=== PATIENT | female | born 1955 | race Caucasian/White ===

== ENCOUNTER 2016-12-27 08:39 | Outpatient (RCR) | payer BC ==
--- OUTSIDE RECORDS SUMMARY | 2016-10-18 08:39 | XMS REPORT | Continuity of Care Document ---
Author Author [facility] Organization [facility] Address Unknown Phone Unavailable Care Team Providers Care Sdv Pilot/Navigator/Dds Operator Name Role Phone LEON HOLMAN MD PCP Insurance Providers Payer Name Policy Number Subscriber Name Relationship [facility] [id number] Agata Vásquez 18 Self / Same As Patient Advance Directives Directive Response Recorded Date/Time Advance Directives Yes 06/03/13 7:14am Problems No problem information available. Medications Current Home Medications Medication Dose Units Route Directions Days/Qty Instructions Start Date Enalapril Maleate 10 Mg 10 Mg Oral Daily 06/03/13 Hydrochlorothiazide 25 Mg 25 Mg Oral Daily 06/03/13 Simvastatin 10 Mg 10 Mg Oral Daily 06/03/13 Folic Acid 1 Mg 1 Mg Oral Daily 06/03/13 Dasatinib 70 Mg 70 Mg Oral Daily 06/03/13 Social History Social History Problem Response Recorded Date/Time Alcohol Use Denies Use 06/03/2013 7:14am Recreational Drug Use No 06/03/2013 7:14am Recent Foreign Travel N [place] 04/15/2016 8:45am Hospital Discharge Instructions No hospital discharge instructions. Plan of Care Prescriptions See Medication Section Functional Status No functional status results. Allergies, Adverse Reactions, Alerts Allergen Type Severity Reaction Status Last Updated Sulfa (Sulfonamide Antibiotics) ([id number]) Allergy Unknown Active 12/08 Famotidine Allergy Unknown Active 09/11/09 Immunizations No immunization records. Vital Signs No known vital signs results. Results Laboratory Results Test Name Result Units Flags Reference Collection Date/Time Result Date/ Time Comments White Blood Count 3.6 10^3/uL L 4.3-11.0 04/15/2016 8:57am 04/15/2016 9: 02am Red Blood Count 3.60 10^6/uL L 4.35-5.85 04/15/2016 8:57am 04/15/2016 9: 02am Hemoglobin 11.1 G/DL L 11.5-16.0 04/15/2016 8:57am 04/15/2016 9:02am Hematocrit 33 % L 35-52 04/15/2016 8:57am 04/15/2016 9:02am Mean Corpuscular Volume 92 FL 80-99 04/15/2016 8:57am 04/15/2016 9: 02am Mean Corpuscular Hemoglobin 31 PG 25-34 04/15/2016 8:57am 04/15/2016 9: 02am Mean Corpuscular Hemoglobin Concent 34 G/DL 32-36 04/15/2016 8:57am 12/2015 9:02am Red Cell Distribution Width 14.0 % 10.0-14.5 04/15/2016 8:57am 2015 9:02am Platelet Count 185 10^3/uL 130-400 04/15/2016 8:57am 04/15/2016 9:02am Mean Platelet Volume 9.1 FL 7.4-10.4 04/15/2016 8:57am 04/15/2016 9: 02am Neutrophils (%) (Auto) 58 % 42-75 04/15/2016 8:57am 04/15/2016 9:02am Lymphocytes (%) (Auto) 24 % 12-44 04/15/2016 8:57am 04/15/2016 9:02am Monocytes (%) (Auto) 16 % H 0-12 04/15/2016 8:57am 04/15/2016 9:02am Eosinophils (%) (Auto) 2 % 0-10 04/15/2016 8:57am 04/15/2016 9:02am Basophils (%) (Auto) 0 % 0-10 04/15/2016 8:57am 04/15/2016 9:02am Neutrophils # (Auto) 2.1 X 10^3 1.8-7.8 04/15/2016 8:57am 04/15/2016 9: 02am Lymphocytes # (Auto) 0.9 X 10^3 L 1.0-4.0 04/15/2016 8:57am 04/15/2016 9: 02am Monocytes # (Auto) 0.6 X 10^3 0.0-1.0 04/15/2016 8:57am 04/15/2016 9: 02am Eosinophils # (Auto) 0.1 10^3/uL 0.0-0.3 04/15/2016 8:57am 04/15/2016 9 :02am Basophils # (Auto) 0.0 10^3/uL 0.0-0.1 04/15/2016 8:57am 04/15/2016 9: 02am Sodium Level 139 MMOL/L 135-145 04/15/2016 8:57am 04/15/2016 9:38am Potassium Level 3.8 MMOL/L 3.6-5.0 04/15/2016 8:57am 04/15/2016 9:38am Chloride Level 104 MMOL/L 98-107 04/15/2016 8:57am 04/15/2016 9:38am Carbon Dioxide Level 27 MMOL/L 21-32 04/15/2016 8:57am 04/15/2016 9: 38am Anion Gap 8 MMOL/L 5-14 04/15/2016 8:57am 04/15/2016 9:38am Blood Urea Nitrogen 16 MG/DL 7-18 04/15/2016 8:57am 04/15/2016 9:38am Creatinine 0.89 MG/DL 0.60-1.30 04/15/2016 8:57am 04/15/2016 9:38am BUN/Creatinine Ratio 18 04/15/2016 8:57am 04/15/2016 9:38am Estimat Glomerular Filtration Rate > 60 04/15/2016 8:57am 2015 9:38am GFR INTERPRETIVE DATA UNITS FOR ESTIMATED GFR (eGFR): mL/min/1.73 M2 REFERENCE RANGE FOR ESTIMATED GFR (eGFR) eGFR NORMAL eGFR >60 MODERATELY DECREASED eGFR 30-59 SEVERLY DECREASED eGFR 15-29 KIDNEY FAILURE <15 (OR DIALYSIS) Glucose Level 121 MG/DL H 70-105 04/15/2016 8:57am 04/15/2016 9:38am Calcium Level 9.1 MG/DL 8.5-10.1 04/15/2016 8:57am 04/15/2016 9:38am Total Bilirubin 0.4 MG/DL 0.1-1.0 04/15/2016 8:57am 04/15/2016 9:38am Alkaline Phosphatase 67 U/L 40-136 04/15/2016 8:57am 04/15/2016 9:38am Aspartate Amino Transf (AST/SGOT) 22 U/L 5-34 04/15/2016 8:57am 2015 9:38am Alanine Aminotransferase (ALT/SGPT) 11 U/L 0-55 04/15/2016 8:57am 04/15 9:38am Lactate Dehydrogenase 291 U/L H 125-220 04/15/2016 8:57am 04/15/2016 9: 38am Total Protein 6.7 G/DL 6.4-8.2 04/15/2016 8:57am 04/15/2016 9:38am Albumin 4.3 G/DL 3.2-4.5 04/15/2016 8:57am 04/15/2016 9:38am Ferritin 55 ng/mL 15-150 04/15/2016 8:37am 04/16/2016 6:24am Test performed at [facility], CLIA# [id number] Procedures No known history of procedures. Encounters Encounter Location Arrival/Admit Date Discharge/Depart Date Attending Provider Discharged Recurring [facility] 04/29/16 8:49am 11:59pm CARLENE THRASHER
[2016-10-18 09:19] LABS: BASOPHILS % (AUTO) 0 % (0-10); EOSINOPHILS # (AUTO) 0.1 10^3/uL (0.0-0.3); EOSINOPHILS % (AUTO) 3 % (0-10); LYMPHOCYTES # (AUTO) 0.9 X 10^3 (1.0-4.0); LYMPHOCYTES % (AUTO) 22 % (12-44); MEAN CORPUSCULAR HEMOGLOBIN 31 PG (25-34); MEAN CORPUSCULAR HGB CONC 33 G/DL (32-36); MEAN CORPUSCULAR VOLUME 92 FL (80-99); MEAN PLATELET VOLUME 8.7 FL (7.4-10.4); MONOCYTES # (AUTO) 0.6 X 10^3 (0.0-1.0); MONOCYTES % (AUTO) 16 % (0-12); NEUTROPHILS # (AUTO) 2.4 X 10^3 (1.8-7.8); NEUTROPHILS % (AUTO) 59 % (42-75); PLATELET COUNT 172 10^3/uL (130-400); RED BLOOD COUNT 3.43 10^6/uL (4.35-5.85); RED CELL DISTRIBUTION WIDTH 14.4 % (10.0-14.5)
[2016-10-18 09:56] LABS: ALANINE AMINOTRANSFERASE 16 U/L (0-55); ALBUMIN 4.1 G/DL (3.2-4.5); ANION GAP 9 MMOL/L (5-14); ASPARTATE AMINO TRANSFERASE 24 U/L (5-34); BILIRUBIN,TOTAL 0.3 MG/DL (0.1-1.0); BLOOD UREA NITROGEN 14 MG/DL (7-18); BUN/CREATININE RATIO 15; CALCIUM 8.9 MG/DL (8.5-10.1); CARBON DIOXIDE 23 MMOL/L (21-32); CHLORIDE 108 MMOL/L (98-107); CREATININE SERUM 0.91 MG/DL (0.60-1.30); GFR ESTIMATED > 60; GLUCOSE 121 MG/DL (70-105); LACTATE DEHYDROGENASE 298 U/L (125-220); POTASSIUM 3.8 MMOL/L (3.6-5.0); SODIUM 140 MMOL/L (135-145); TOTAL PROTEIN 6.6 G/DL (6.4-8.2)
[2016-10-19 07:58] LABS: FERRITIN 51 ng/mL (15-150)
[2016-10-25 08:30] LABS: BCR ABL GENE QT SEE REPORT
[~2016-12-27 08:39] MED LIST: DASA70TA PO; ENLP10T PO; FOLI1TAB24 PO; HCT25T PO; SIMV10TA3 PO
[2016-12-27 08:57] LABS: BASOPHILS % (AUTO) 0 % (0-10); EOSINOPHILS # (AUTO) 0.1 10^3/uL (0.0-0.3); EOSINOPHILS % (AUTO) 3 % (0-10); LYMPHOCYTES # (AUTO) 0.8 X 10^3 (1.0-4.0); LYMPHOCYTES % (AUTO) 20 % (12-44); MEAN CORPUSCULAR HEMOGLOBIN 31 PG (25-34); MEAN CORPUSCULAR HGB CONC 33 G/DL (32-36); MEAN CORPUSCULAR VOLUME 92 FL (80-99); MONOCYTES # (AUTO) 0.7 X 10^3 (0.0-1.0); MONOCYTES % (AUTO) 17 % (0-12); NEUTROPHILS # (AUTO) 2.4 X 10^3 (1.8-7.8); NEUTROPHILS % (AUTO) 60 % (42-75); PLATELET COUNT 183 10^3/uL (130-400); RED BLOOD COUNT 3.53 10^6/uL (4.35-5.85); RED CELL DISTRIBUTION WIDTH 14.2 % (10.0-14.5); WHITE BLOOD COUNT 4.1 10^3/uL (4.3-11.0)
[2016-12-27 09:39] LABS: ALBUMIN 4.1 G/DL (3.2-4.5); BILIRUBIN,TOTAL 0.3 MG/DL (0.1-1.0); CALCIUM 9.1 MG/DL (8.5-10.1); CREATININE SERUM 1.01 MG/DL (0.60-1.30); POTASSIUM 3.6 MMOL/L (3.6-5.0); TOTAL PROTEIN 6.7 G/DL (6.4-8.2)
== END 2017-01-16 | disposition home or self-care (01) ==
LOC: ONC 08:39
PROVIDERS: ATTEND Internal Medicine Hematology & Oncology
DX: C92.10 Chronic myeloid leukemia, BCR/ABL-positive, not having achieved remission (principal); D50.9 Iron deficiency anemia, unspecified; N18.3 Chronic kidney disease, stage 3 (moderate); Z79.899 Other long term (current) drug therapy
CPT/HCPCS: 36415; 80053; 81206; 82728; 83615; 85025; 99213

== ENCOUNTER → 2016-12-31 | Outpatient (CLI) | payer BC ==
[~2016-12-31] MED LIST changes: +BARIUM SUSPENSION 2.1% (VANILLA SILQ) 450 ML PO ONE; +CATHETER FLUSH 10 ML SYR IV PRN; +IOHEXOL 350 MG/ML 100 ML (OMNIPAQUE 350) VIAL IV ONE; +NS 100 ML (IVPB) BAG IV ONE
--- OUTSIDE RECORDS SUMMARY | 2016-12-31 09:49 | XMS REPORT | Continuity of Care Document ---
Author Author [facility] Organization [facility] Address Unknown Phone Unavailable Care Team Providers Care Tool Shaper Setup Operator Name Role Phone LEON HOLMAN MD PCP Insurance Providers Payer Name Policy Number Subscriber Name Relationship [facility] [id number] Agata Vásquez 18 Self / Same As [...] Reaction Status Last Updated Sulfa (Sulfonamide Antibiotics) ([id number]) Allergy Unknown Active 12/08 Famotidine Allergy Unknown [...] 04/15/2016 8:37am 04/16/2016 6:24am Test performed at [facility], CLIA# [id number] Procedures No known history of procedures. Encounters Encounter Location Arrival/Admit Date Discharge/Depart Date Attending Provider Discharged Recurring [facility] 04/29/16 8:49am 11:59pm CARLENE THRASHER
--- NOTE | 2016-12-31 11:44 | Diagnostic Imaging Report ---
PROCEDURE: CT abdomen and pelvis with contrast. TECHNIQUE: Multiple contiguous axial images were obtained through the abdomen and pelvis after administration of intravenous contrast. INDICATION: History of leukemia. Bilateral leg swelling. 100 ML of Omnipaque 350 is administered intravenously. FINDINGS: The lung bases appear clear. The gallbladder is distended without stones or wall thickening. The liver, the pancreas, the spleen, and the adrenals appear unremarkable. The kidneys have symmetric enhancement and contrast excretion. The abdominal aorta is normal in caliber. No para-aortic significantly enlarged lymph node is seen. This study was ordered with a routine protocol, and a dedicated venous phase was not performed. The delayed phase imaging demonstrates remaining mild enhancement in the iliac veins and the IVC with no definite venous occlusion. Left abdominal colostomy is seen. No significant free fluid or fluid collection is noted. The osseous structures demonstrate degenerative changes in the lower lumbar spine. IMPRESSION: No lymphadenopathy or soft tissue mass is seen in the abdomen or pelvis. Distended gallbladder with no stones or CT evidence of cholecystitis. Dictated by: Dictated on workstation # [id number]
== END ==
LOC: RAD 09:46
PROVIDERS: ATTEND Nurse Practitioner Adult Health
DX: N18.3 Chronic kidney disease, stage 3 (moderate) (principal)
CPT/HCPCS: 74177

== ENCOUNTER → 2017-01-21 | Outpatient (CLI) | payer BC ==
[~2017-01-21] MED LIST changes: -BARIUM SUSPENSION 2.1% (VANILLA SILQ) 450 ML PO ONE; -CATHETER FLUSH 10 ML SYR IV PRN; -IOHEXOL 350 MG/ML 100 ML (OMNIPAQUE 350) VIAL IV ONE; -NS 100 ML (IVPB) BAG IV ONE
--- OUTSIDE RECORDS SUMMARY | 2017-01-21 10:25 | XMS REPORT | Continuity of Care Document ---
Author Author [facility] Organization [facility] Address Unknown Phone Unavailable Care Team Providers Care Bender Machine Operator Name Role Phone LEON HOLMAN MD PCP Insurance Providers Payer Name Policy Number Subscriber Name Relationship [facility] [id number] Agata Vásquez 18 Self / Same As [...] Reaction Status Last Updated Sulfa (Sulfonamide Antibiotics) ([id number]) Allergy Unknown Active 12/08 Famotidine Allergy Unknown [...] 04/15/2016 8:37am 04/16/2016 6:24am Test performed at [facility], CLIA# [id number] Procedures No known history of procedures. Encounters Encounter Location Arrival/Admit Date Discharge/Depart Date Attending Provider Discharged Recurring [facility] 04/29/16 8:49am 11:59pm CARLENE THRASHER
--- NOTE | 2017-01-21 19:18 | Diagnostic Imaging Report ---
INDICATION: Digital mammogram bilateral screening. This study was compared to the prior exams of 12/18/15, 11/19/14 and 10/22/13. At this time, there are no current complaints. The current study was also evaluated with a Computer Aided Detection (CAD) system. FINDINGS: There are scattered fibroglandular densities in both breasts which could obscure a lesion. Overall, there does not appear to have been any significant change when compared to the prior exam. No primary or secondary sign of malignancy is noted. IMPRESSION: There is no radiographic evidence for malignancy. ACR BI-RADS Category 1: Negative. Result letter will be mailed to the patient. Note: At least 10% of breast cancer is not imaged by mammography. Dictated by: Dictated on workstation # [id number]
== END ==
LOC: RAD 10:22
PROVIDERS: ATTEND Family Medicine
DX: Z12.31 Encounter for screening mammogram for malignant neoplasm of breast (principal)
CPT/HCPCS: 77067

== ENCOUNTER 2017-05-02 13:15 | Outpatient (RCR) | payer BC ==
[2017-04-18 09:36] LABS: BASOPHILS % (AUTO) 0 % (0-10); EOSINOPHILS # (AUTO) 0.1 10^3/uL (0.0-0.3); EOSINOPHILS % (AUTO) 2 % (0-10); LYMPHOCYTES # (AUTO) 0.7 X 10^3 (1.0-4.0); LYMPHOCYTES % (AUTO) 18 % (12-44); MEAN CORPUSCULAR HEMOGLOBIN 31 PG (25-34); MEAN CORPUSCULAR HGB CONC 34 G/DL (32-36); MEAN CORPUSCULAR VOLUME 92 FL (80-99); MEAN PLATELET VOLUME 8.8 FL (7.4-10.4); MONOCYTES # (AUTO) 0.6 X 10^3 (0.0-1.0); MONOCYTES % (AUTO) 14 % (0-12); NEUTROPHILS # (AUTO) 2.6 X 10^3 (1.8-7.8); NEUTROPHILS % (AUTO) 65 % (42-75); PLATELET COUNT 180 10^3/uL (130-400); RED CELL DISTRIBUTION WIDTH 14.1 % (10.0-14.5); WHITE BLOOD COUNT 4.1 10^3/uL (4.3-11.0)
[2017-04-18 10:13] LABS: ALANINE AMINOTRANSFERASE 14 U/L (0-55); ALBUMIN 4.1 G/DL (3.2-4.5); ANION GAP 10 MMOL/L (5-14); ASPARTATE AMINO TRANSFERASE 17 U/L (5-34); BILIRUBIN,TOTAL 0.3 MG/DL (0.1-1.0); BLOOD UREA NITROGEN 14 MG/DL (7-18); BUN/CREATININE RATIO 16; CALCIUM 9.1 MG/DL (8.5-10.1); CARBON DIOXIDE 26 MMOL/L (21-32); CHLORIDE 103 MMOL/L (98-107); CREATININE SERUM 0.87 MG/DL (0.60-1.30); GFR ESTIMATED > 60; GLUCOSE 134 MG/DL (70-105); LACTATE DEHYDROGENASE 262 U/L (125-220); POTASSIUM 3.7 MMOL/L (3.6-5.0); SODIUM 139 MMOL/L (135-145); TOTAL PROTEIN 6.8 G/DL (6.4-8.2)
[2017-04-25 07:41] LABS: BCR ABL GENE QT SEE FOOTNOTE
== END 2017-07-17 | disposition home or self-care (01) ==
LOC: ONC 13:15
PROVIDERS: ATTEND Internal Medicine Hematology & Oncology
DX: C92.10 Chronic myeloid leukemia, BCR/ABL-positive, not having achieved remission (principal); D50.9 Iron deficiency anemia, unspecified; N18.3 Chronic kidney disease, stage 3 (moderate); Z79.899 Other long term (current) drug therapy
CPT/HCPCS: 36415; 80053; 81206; 82728; 83615; 85025; 99213

== ENCOUNTER 2017-10-31 12:47 | Outpatient (RCR) | payer BC ==
[2017-10-17 09:11] LABS: BASOPHILS % (AUTO) 0 % (0-10); EOSINOPHILS # (AUTO) 0.1 10^3/uL (0.0-0.3); EOSINOPHILS % (AUTO) 3 % (0-10); HEMATOCRIT 32 % (35-52); HEMOGLOBIN 10.8 G/DL (11.5-16.0); LYMPHOCYTES # (AUTO) 0.9 X 10^3 (1.0-4.0); LYMPHOCYTES % (AUTO) 21 % (12-44); MEAN CORPUSCULAR HEMOGLOBIN 31 PG (25-34); MEAN CORPUSCULAR HGB CONC 34 G/DL (32-36); MEAN CORPUSCULAR VOLUME 93 FL (80-99); MONOCYTES # (AUTO) 0.7 X 10^3 (0.0-1.0); MONOCYTES % (AUTO) 16 % (0-12); NEUTROPHILS # (AUTO) 2.5 X 10^3 (1.8-7.8); NEUTROPHILS % (AUTO) 60 % (42-75); PLATELET COUNT 186 10^3/uL (130-400); RED BLOOD COUNT 3.44 10^6/uL (4.35-5.85); RED CELL DISTRIBUTION WIDTH 14.1 % (10.0-14.5); WHITE BLOOD COUNT 4.2 10^3/uL (4.3-11.0)
[2017-10-17 09:34] LABS: ALANINE AMINOTRANSFERASE 17 U/L (0-55); ALBUMIN 4.2 GM/DL (3.2-4.5); ALKALINE PHOSPHATASE 70 U/L (40-136); BILIRUBIN,TOTAL 0.3 MG/DL (0.1-1.0); BUN/CREATININE RATIO 17; CALCIUM 8.9 MG/DL (8.5-10.1); CARBON DIOXIDE 26 MMOL/L (21-32); CHLORIDE 102 MMOL/L (98-107); CREATININE SERUM 0.92 MG/DL (0.60-1.30); GFR ESTIMATED > 60; GLUCOSE 143 MG/DL (70-105); SODIUM 138 MMOL/L (135-145); TOTAL PROTEIN 7.4 GM/DL (6.4-8.2)
== END 2018-01-15 | disposition home or self-care (01) ==
LOC: ONC 12:47
PROVIDERS: ATTEND Internal Medicine Hematology & Oncology
DX: C92.10 Chronic myeloid leukemia, BCR/ABL-positive, not having achieved remission (principal); D50.9 Iron deficiency anemia, unspecified; N18.3 Chronic kidney disease, stage 3 (moderate); Z79.899 Other long term (current) drug therapy
CPT/HCPCS: 36415; 80053; 81206; 82728; 83615; 85025; 99213

== ENCOUNTER → 2018-01-25 | Outpatient (CLI) | payer BC ==
--- NOTE | 2018-01-25 19:25 | Diagnostic Imaging Report ---
INDICATION: Digital mammogram bilateral screening. This study was compared to the prior exams of 01/21/17, 12/18/15 and 11/19/14. At this time, there are no current complaints. The current study was also evaluated with a Computer Aided Detection (CAD) system. FINDINGS: There are scattered fibroglandular densities in both breasts which could obscure a lesion. Overall, there does not appear to have been any significant change when compared to the prior exam. No primary or secondary sign of malignancy is noted. IMPRESSION: There is no radiographic evidence for malignancy. ACR BI-RADS Category 1: Negative. Result letter will be mailed to the patient. Note: At least 10% of breast cancer is not imaged by mammography. Dictated by: Dictated on workstation # [id number]
== END ==
LOC: RAD 08:45
PROVIDERS: ATTEND Family Medicine
DX: Z12.31 Encounter for screening mammogram for malignant neoplasm of breast (principal)
CPT/HCPCS: 77067

== ENCOUNTER 2018-03-08 20:48 | Emergency (ER) | payer BC ==
[~2018-03-08] VITALS: Ht 157.5 cm; Wt 73.9 kg
--- OUTSIDE RECORDS SUMMARY | 2018-03-08 20:54 | XMS REPORT ---
Author EVELYN Sarabia Organization [employer] Address Unknown Phone Unavailable Care Team Providers Care Line Therapist Name Role Phone EVELYN MORALES CP Unavailable Allergies No Known Allergies Problems Problem Type Condition Code Onset Dates Condition Status Assessment Encounter for immunization Z23 Active Problem Need for prophylactic vaccination and inoculation, Influenza V04.81 Active Medications No Known Medications Procedures Procedure Coding System Code Date SINGLE IMMUNIZATION ADMIN CPT-4 44857 Sep 02, 2015 FLUARIX QUAD (3 & UP)-GSK-2014 CPT-4 87847 Sep 02, 2015 Results No Known Results Immunizations Vaccine Administration Date FLUARIX QUAD (3 & UP)-GSK-2014Sep 02, 2015 Summary Purpose [employer] Submission
--- OUTSIDE RECORDS SUMMARY | 2018-03-08 20:55 | XMS REPORT | Continuity of Care Document ---
Author Author [facility] Address Unknown Phone Unavailable Allergies Active Description Code Type Severity Reaction Onset Reported/Identified Relationship to Patient Clinical Status Yes famotidine [id number] Drug Allergy Unknown N/A 09/11/2009 Yes Sulfa (Sulfonamide Antibiotics) [id number] Drug Allergy Unknown N/A 2008 Medications There is no data. Problems Date Dx Coded Attending Type Code Diagnosis Diagnosed By 10/13/1634 MANDA BECKMAN, LEON Medrano Ot R60.0 LOCALIZED EDEMA 11/10/2010 Ot 205.10 CHRONIC MYELOID LEUKEMIA, W/O MENTION AC 11/10/2010 Ot 585.3 CHRONIC KIDNEY DISEASE, STAGE III (MODER 11/10/2010 Ot 724.2 LUMBAGO 11/10/2010 Ot 780.60 FEVER, UNSPECIFIED 11/10/2010 Ot 789.00 ABDOMINAL PAIN, UNSPECIFIED SITE 11/10/2010 Ot V44.3 COLOSTOMY STATUS 11/10/2010 Ot V58.69 OTH MED,LT, CURRENT USE 04/19/2011 Ot 211.3 BENIGN NEOPLASM LG BOWEL 04/19/2011 Ot 401.9 HYPERTENSION NOS 04/19/2011 Ot V16.0 FAMILY HX-GI MALIGNANCY 04/19/2011 Ot V44.3 COLOSTOMY STATUS 04/19/2011 Ot V58.69 OTH MED,LT, CURRENT USE 04/19/2011 Ot V67.09 SURGERY FOLLOW-UP, OTHER SURGERY 05/24/2011 Ot 205.10 CHRONIC MYELOID LEUKEMIA, W/O MENTION AC 05/24/2011 Ot 585.3 CHRONIC KIDNEY DISEASE, STAGE III (MODER 05/24/2011 Ot V58.69 OTH MED,LT, CURRENT USE 08/29/2011 Ot 205.10 CHRONIC MYELOID LEUKEMIA, W/O MENTION AC 12/06/2011 Ot 205.10 CHRONIC MYELOID LEUKEMIA, W/O MENTION AC 12/06/2011 Ot 585.3 CHRONIC KIDNEY DISEASE, STAGE III (MODER 12/06/2011 Ot V58.69 OTH MED,LT, CURRENT USE 05/29/2012 Ot 205.10 CHRONIC MYELOID LEUKEMIA, W/O MENTION AC 05/29/2012 Ot 285.9 ANEMIA NOS 05/29/2012 Ot 585.3 CHRONIC KIDNEY DISEASE, STAGE III (MODER 05/29/2012 Ot V58.69 OTH MED,LT, CURRENT USE 08/25/2012 RAJOTTE TELEVISION SCHEDULE COORDINATOR, EVELYN A V04.81 FLU DX (3 YRS AND ABOVE, IM) 08/25/2012 RAJOTTE TELEVISION SCHEDULE COORDINATOR, EVELYN A V04.81 FLU DX (3 YRS AND ABOVE, IM) 09/10/2012 Ot 205.10 CHRONIC MYELOID LEUKEMIA, W/O MENTION AC 09/10/2012 Ot 285.9 ANEMIA NOS 09/10/2012 Ot 585.3 CHRONIC KIDNEY DISEASE, STAGE III (MODER 09/10/2012 Ot V58.69 OTH MED,LT, CURRENT USE 12/17/2012 Ot 205.10 CHRONIC MYELOID LEUKEMIA, W/O MENTION AC 12/17/2012 Ot 285.9 ANEMIA NOS 12/17/2012 Ot 585.3 CHRONIC KIDNEY DISEASE, STAGE III (MODER 12/17/2012 Ot V58.69 OTH MED,LT, CURRENT USE 03/25/2013 CARLENE THRASHER Ot 205.10 CHRONIC MYELOID LEUKEMIA, W/O MENTION AC 03/25/2013 CARLENE THRASHER N Ot 285.9 ANEMIA NOS 03/25/2013 CARLENE THRASHER N Ot 585.3 CHRONIC KIDNEY DISEASE, STAGE III (MODER 03/25/2013 CARLENE THRASHER Ot V58.69 OTH MED,LT,CURRENT USE 06/03/2013 MARNIE BECKMAN, JHON Castillo Ot 205.10 CHRONIC MYELOID LEUKEMIA, W/O MENTION AC 06/03/2013 MARNIE BECKMAN, JHON Castillo Ot 569.69 OTH COLOST ENTEROSTOMY COMP 06/03/2013 MARNIE BECKMAN, JHON Castillo Ot 787.91 DIARRHEA 06/03/2013 JHON DYE MD Ot 789.00 ABDOMINAL PAIN, UNSPECIFIED SITE 06/03/2013 JHON DYE MD Ot V44.3 COLOSTOMY STATUS 06/24/2013 CARLENE THRASHER N Ot 205.10 CHRONIC MYELOID LEUKEMIA, W/O MENTION AC 06/24/2013 PRICE, BOBAN N Ot 285.9 ANEMIA NOS 06/24/2013 PRICE, BOBAN N Ot 585.3 CHRONIC KIDNEY DISEASE, STAGE III (MODER 06/24/2013 PRICE, BOBAN N Ot V58.69 OTH MED,LT,CURRENT USE 10/03/2013 PRICE, BOBAN N Ot 205.10 CHRONIC MYELOID LEUKEMIA, W/O MENTION AC 10/03/2013 PRICE, BOBAN N Ot 285.9 ANEMIA NOS 10/03/2013 PRICE, BOBAN N Ot 585.3 CHRONIC KIDNEY DISEASE, STAGE III (MODER 10/03/2013 PRICE, BOBAN N Ot V58.69 OTH MED,LT,CURRENT USE 01/13/2014 PRICE, BOBAN N Ot 205.10 CHRONIC MYELOID LEUKEMIA, W/O MENTION AC 01/13/2014 PRICE, BOBAN N Ot 280.9 IRON DEFIC ANEMIA NOS 01/13/2014 PRICE, BOBAN N Ot 585.3 CHRONIC KIDNEY DISEASE, STAGE III (MODER 01/13/2014 PRICE, BOBAN N Ot V44.3 COLOSTOMY STATUS 01/13/2014 PRICE, BOBAN N Ot V58.69 OTH MED,LT,CURRENT USE 07/03/2014 PRICE, BOBAN N Ot 205.10 CHRONIC MYELOID LEUKEMIA, W/O MENTION AC 07/03/2014 PRICE, BOBAN N Ot 280.9 IRON DEFIC ANEMIA NOS 07/03/2014 PRICE, BOBAN N Ot 585.3 CHRONIC KIDNEY DISEASE, STAGE III (MODER 07/03/2014 PRICE, BOBAN N Ot V44.3 COLOSTOMY STATUS 07/03/2014 PRICE, BOBAN N Ot V58.69 OTH MED,LT,CURRENT USE 10/17/2014 PRICE, BOBAN N Ot 205.10 10/17/2014 PRICE, BOBAN N Ot 280.9 10/17/2014 PRICE, BOBAN N Ot 585.3 10/17/2014 PRICE, BOBAN N Ot V44.3 10/17/2014 PRICE, BOBAN N Ot V58.69 10/18/2014 PRICE, BOBAN N Ot 205.10 10/18/2014 PRICE, BOBAN N Ot 280.9 10/18/2014 PRICE, BOBAN N Ot 585.3 10/18/2014 PRICE, BOBAN N Ot V44.3 10/18/2014 PRICE, BOBAN N Ot V58.69 11/18/2014 CARRENORUSSELL Tovar FRINGE KNOTTER Ot 205.10 11/18/2014 CARRENO RUSSELL S FRINGE KNOTTER Ot 280.9 11/18/2014 RUSSELL CARRENO S FRINGE KNOTTER Ot 585.3 11/18/2014 CARRENO RUSSELL S FRINGE KNOTTER Ot V44.3 11/18/2014 CARRENORUSSELL Tovar S FRINGE KNOTTER Ot V58.69 12/09/2014 PRICE, BOBAN N Ot 205.10 12/09/2014 PRICE, BOBAN N Ot 280.9 12/09/2014 PRICE, BOBAN N Ot 585.3 12/09/2014 PRICE, BOBAN N Ot V44.3 12/09/2014 PRICE, BOBAN N Ot V58.69 12/12/2014 MANDA BECKMAN, LEON Medrano Ot V76.12 01/15/2015 PRICE, BOBAN N Ot 205.10 CHRONIC MYELOID LEUKEMIA, W/O MENTION AC 01/15/2015 PRICE, BOBAN N Ot 280.9 IRON DEFIC ANEMIA NOS 01/15/2015 PRICE, BOBAN N Ot 585.3 CHRONIC KIDNEY DISEASE, STAGE III (MODER 01/15/2015 PRICE, BOBAN N Ot V44.3 COLOSTOMY STATUS 01/15/2015 PRICE, BOBAN N Ot V58.69 OT MED,LT,CURRENT USE 02/04/2015 PRICE, BOBAN N Ot 205.10 02/04/2015 PRICE, BOBAN N Ot 280.9 02/04/2015 PRICE, BOBAN N Ot 585.3 02/04/2015 PRICE, BOBAN N Ot V44.3 02/04/2015 PRICE, BOBAN N Ot V58.69 02/28/2015 PRICE, BOBAN N Ot 205.10 02/28/2015 PRICE, BOBAN N Ot 280.9 02/28/2015 PRICE, BOBAN N Ot 585.3 02/28/2015 PRICE, BOBAN N Ot V44.3 02/28/2015 PRICE, BOBAN N Ot V58.69 04/16/2015 PRICE, BOBAN N Ot 205.10 CHRONIC MYELOID LEUKEMIA, W/O MENTION AC 04/16/2015 PRICE, BOBAN N Ot 280.9 IRON DEFIC ANEMIA NOS 04/16/2015 PRICE, BOBAN N Ot 585.3 CHRONIC KIDNEY DISEASE, STAGE III (MODER 04/16/2015 PRICE, BOBAN N Ot V44.3 COLOSTOMY STATUS 04/16/2015 PRICE, BOBAN N Ot V58.69 OTH MED,LT,CURRENT USE 04/17/2015 PRICE, BOBAN N Ot 205.10 04/17/2015 PRICE, BOBAN N Ot 280.9 04/17/2015 PRICE, BOBAN N Ot 585.3 04/17/2015 PRICE, BOBAN N Ot V44.3 04/17/2015 PRICE, BOBAN N Ot V58.69 04/17/2015 PRICE, BOBAN N Ot 205.10 04/17/2015 PRICE, BOBAN N Ot 280.9 04/17/2015 PRICE, BOBAN N Ot 585.3 04/17/2015 PRICE, BOBAN N Ot V44.3 04/17/2015 PRICE, BOBAN N Ot V58.69 04/18/2015 PRICE, BOBAN N Ot 205.10 04/18/2015 PRICE, BOBAN N Ot 280.9 04/18/2015 PRICE, BOBAN N Ot 585.3 04/18/2015 PRICE, BOBAN N Ot V44.3 04/18/2015 PRICE, BOBAN N Ot V58.69 05/19/2015 PRICE, BOBAN N Ot 205.10 05/19/2015 PRICE, BOBAN N Ot 280.9 05/19/2015 PRICE, BOBAN N Ot 585.3 05/19/2015 PRICE, BOBAN N Ot V44.3 05/19/2015 PRICE, BOBAN N Ot V58.69 05/30/2015 PRICE, BOBAN N Ot 205.10 05/30/2015 PRICE, BOBAN N Ot 280.9 05/30/2015 PRICE, BOBAN N Ot 585.3 05/30/2015 PRICE, BOBAN N Ot V44.3 05/30/2015 PRICE, BOBAN N Ot V58.69 07/16/2015 PRICE, BOBAN N Ot 205.10 CHRONIC MYELOID LEUKEMIA, W/O MENTION AC 07/16/2015 CARLENE THRASHER Ot 280.9 IRON DEFIC ANEMIA NOS 07/16/2015 CARLENE THRASHER Ot 585.3 CHRONIC KIDNEY DISEASE, STAGE III (MODER 07/16/2015 CARLENE THRASHER Ot V44.3 COLOSTOMY STATUS 07/16/2015 CARLENE THRASHER Ot V58.69 OTH MED,LT,CURRENT USE 11/18/2015 RUSSELL CARRENOP Ot C92.10 11/18/2015 RUSSELL CARRENOP Ot D50.0 11/18/2015 RUSSELL CARRENO FRINGE KNOTTER Ot Z79.899 12/12/2015 CARLENE THRASHER N Ot C92.10 12/12/2015 ACRLENE THRASHER Ot D50.9 12/12/2015 CARLENE THRASHER Ot N18.3 12/12/2015 CARLENE THRASHER Ot Z79.899 01/01/2016 Ot Z12.31 01/14/2016 CARLENE THRASHER Ot C92.10 CHRONIC MYELOID LEUK, BCR/ABL-POSITIVE, 01/14/2016 CARLENE THRASHER Ot D50.9 IRON DEFICIENCY ANEMIA, UNSPECIFIED 01/14/2016 CARLENE THRASHER Ot N18.3 CHRONIC KIDNEY DISEASE, STAGE 3 (MODERAT 01/14/2016 CARLENE THRASHER Ot Z79.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 04/15/2016 Ot 205.10 CHRONIC MYELOID LEUKEMIA, W/O MENTION AC 04/15/2016 Ot 272.4 HYPERLIPIDEMIA NEC/NOS 04/15/2016 Ot 205.10 CHRONIC MYELOID LEUKEMIA, W/O MENTION AC 04/15/2016 Ot 585.3 CHRONIC KIDNEY DISEASE, STAGE III (MODER 04/15/2016 Ot V03.82 PROPHYLACTIC VACC AGAINST STREPTOCOCCUS 04/15/2016 Ot V06.1 DIPHTHERIA- TETANUS-PERTUSSIS, COMBINED [ 04/15/2016 Ot V44.3 COLOSTOMY STATUS 04/15/2016 Ot V58.69 OTH MED,LT, CURRENT USE 04/15/2016 Ot V76.12 OTH SCREEN MAMMO-MALIGN NEOPLASM OF JAYLEEN 04/15/2016 Ot V76.12 OTH SCREEN MAMMO-MALIGN NEOPLASM OF JAYLEEN 04/15/2016 RUSSELL CARRENO FRINGE KNOTTER Ot 205.10 CHRONIC MYELOID LEUKEMIA, W/O MENTION AC 04/15/2016 DAHIANA CARRENOGEE La FRINGE KNOTTER Ot 280.9 IRON DEFIC ANEMIA NOS 04/15/2016 RUSSELL CARRENO FRINGE KNOTTER Ot 284.19 OTHER PANCYTOPENIA 04/15/2016 RUSSELL CARRENO FRINGE KNOTTER Ot 782.3 EDEMA 04/15/2016 RUSSELL CARRENO FRINGE KNOTTER Ot V58.69 OTH MED,LT,CURRENT USE 04/15/2016 RUSSELL CARRENO FRINGE KNOTTER Ot 729.5 PAIN IN LIMB 04/15/2016 RUSSELL CARRENO FRINGE KNOTTER Ot 205.10 CHRONIC MYELOID LEUKEMIA, W/O MENTION AC 04/15/2016 RUSSELL CARRENO FRINGE KNOTTER Ot 280.9 IRON DEFIC ANEMIA NOS 04/15/2016 RUSSELL CARRENO FRINGE KNOTTER Ot 585.3 CHRONIC KIDNEY DISEASE, STAGE III (MODER 04/15/2016 RUSSELL CARRENO FRINGE KNOTTER Ot V44.3 COLOSTOMY STATUS 04/15/2016 RUSSELL CARRENO FRINGE KNOTTER Ot V58.69 OTH MED,LT,CURRENT USE 04/15/2016 MANDA BECKMAN, LEON Medrano Ot 793.82 INCONCLUSIVE MAMMOGRAM 04/15/2016 RUSSELL CARRENO FRINGE KNOTTER Ot 205.10 CHRONIC MYELOID LEUKEMIA, W/O MENTION AC 04/15/2016 RUSSELL CARRENO FRINGE KNOTTER Ot 280.9 IRON DEFIC ANEMIA NOS 04/15/2016 URSSELL CARRENO FRINGE KNOTTER Ot 585.3 CHRONIC KIDNEY DISEASE, STAGE III (MODER 04/15/2016 RUSSELL CARRENO FRINGE KNOTTER Ot V44.3 COLOSTOMY STATUS 04/15/2016 RUSSELL CARRENO FRINGE KNOTTER Ot V58.69 OTH MED,LT,CURRENT USE 04/15/2016 MANDA BECKMAN, LEON Medrano Ot V76.12 OTH SCREEN MAMMO-MALIGN NEOPLASM OF JAYLEEN 04/15/2016 RUSSELL CARRENO FRINGE KNOTTER Ot C92.10 CHRONIC MYELOID LEUK, BCR/ABL-POSITIVE, 04/15/2016 RUSSELL CARRENO FRINGE KNOTTER Ot D50.0 IRON DEFICIENCY ANEMIA SECONDARY TO BLOO 04/15/2016 RUSSELL CARRENO FRINGE KNOTTER Ot Z79.899 OTHER PRISON (CURRENT) DRUG THERAPY 04/15/2016 Ot Z12.31 ENCNTR SCREEN MAMMOGRAM FOR MALIGNANT NE 04/15/2016 CARLENE THRASHER Ot C92.10 CHRONIC MYELOID LEUK, BCR/ABL-POSITIVE, 04/15/2016 CARLENE THRASHER N Ot D50.9 IRON DEFICIENCY ANEMIA, UNSPECIFIED 04/15/2016 CARLENE THRASHER N Ot N18.3 CHRONIC KIDNEY DISEASE, STAGE 3 (MODERAT 04/15/2016 CARLENE THRASHER N Ot Z79.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 04/16/2016 CARLENE THRASHER Ot C92.10 CHRONIC MYELOID LEUK, BCR/ABL-POSITIVE, 04/16/2016 CARLENE THRASHER N Ot D50.9 IRON DEFICIENCY ANEMIA, UNSPECIFIED 04/16/2016 CARLENE THRASHER Ot N18.3 CHRONIC KIDNEY DISEASE, STAGE 3 (MODERAT 04/16/2016 CARLENE THRASHER N Ot Z79.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 05/18/2016 MANDA BECKMAN, LEON Medrano Ot R60.0 LOCALIZED EDEMA 05/19/2016 Ot V76.12 OTH SCREEN MAMMO-MALIGN NEOPLASM OF JAYLEEN 05/19/2016 Ot V76.12 OTH SCREEN MAMMO-MALIGN NEOPLASM OF JAYLEEN 05/19/2016 RUSSELL CARRENOP Ot 205.10 CHRONIC MYELOID LEUKEMIA, W/O MENTION AC 05/19/2016 RUSSELL CARRENOP Ot 280.9 IRON DEFIC ANEMIA NOS 05/19/2016 RUSSELL CARRENOP Ot 284.19 OTHER PANCYTOPENIA 05/19/2016 RUSSELL CARRENOP Ot 782.3 EDEMA 05/19/2016 RUSSELL CARRENO Ot V58.69 OTH MED,LT,CURRENT USE 05/19/2016 RUSSELL CARRENOP Ot 729.5 PAIN IN LIMB 05/19/2016 RUSSELL CARRENOP Ot 205.10 CHRONIC MYELOID LEUKEMIA, W/O MENTION AC 05/19/2016 RUSSELL CARRENOP Ot 280.9 IRON DEFIC ANEMIA NOS 05/19/2016 RUSSELL CARRENOP Ot 585.3 CHRONIC KIDNEY DISEASE, STAGE III (MODER 05/19/2016 RUSSELL CARRENOP Ot V44.3 COLOSTOMY STATUS 05/19/2016 CARRENO, HILAH S FRINGE KNOTTER Ot V58.69 OTH MED,LT,CURRENT USE 05/19/2016 MANDA BECKMAN, LEON Medrano Ot 793.82 INCONCLUSIVE MAMMOGRAM 05/19/2016 DAHIANA CARRENOGEE La FRINGE KNOTTER Ot 205.10 CHRONIC MYELOID LEUKEMIA, W/O MENTION AC 05/19/2016 DAHIANA CARRENOGEE La FRINGE KNOTTER Ot 280.9 IRON DEFIC ANEMIA NOS 05/19/2016 DAHIANA CARRENOGEE La FRINGE KNOTTER Ot 585.3 CHRONIC KIDNEY DISEASE, STAGE III (MODER 05/19/2016 DAHIANA CARRENOGEE La FRINGE KNOTTER Ot V44.3 COLOSTOMY STATUS 05/19/2016 WAI RUSSELL Tovar FRINGE KNOTTER Ot V58.69 OTH MED,LT,CURRENT USE 05/19/2016 MANDA BECKMAN, LEON Medrano Ot V76.12 OTH SCREEN MAMMO-MALIGN NEOPLASM OF JAYLEEN 05/19/2016 RUSSELL CARRENO FRINGE KNOTTER Ot C92.10 CHRONIC MYELOID LEUK, BCR/ABL-POSITIVE, 05/19/2016 DAHIANA CARRENOGEE La FRINGE KNOTTER Ot D50.0 IRON DEFICIENCY ANEMIA SECONDARY TO BLOO 05/19/2016 WAI RUSSELL Tovar FRINGE KNOTTER Ot Z79.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 05/19/2016 Ot Z12.31 ENCNTR SCREEN MAMMOGRAM FOR MALIGNANT NE 05/19/2016 CARLENE THRASHER Ot C92.10 CHRONIC MYELOID LEUK, BCR/ABL-POSITIVE, 05/19/2016 CARLENE THRASHER N Ot D50.9 IRON DEFICIENCY ANEMIA, UNSPECIFIED 05/19/2016 CARLENE THRASHER N Ot N18.3 CHRONIC KIDNEY DISEASE, STAGE 3 (MODERAT 05/19/2016 CARLENE THRASHER N Ot Z79.899 OTHER PRISON (CURRENT) DRUG THERAPY 05/20/2016 MANDA BECKMAN, LEON Medrano Ot I10 ESSENTIAL (PRIMARY) HYPERTENSION 05/27/2016 CARLENE THRASHER Ot C92.10 CHRONIC MYELOID LEUK, BCR/ABL-POSITIVE, 05/27/2016 CARLENE THRASHER N Ot D50.9 IRON DEFICIENCY ANEMIA, UNSPECIFIED 05/27/2016 CARLENE THRASHER N Ot N18.3 CHRONIC KIDNEY DISEASE, STAGE 3 (MODERAT 05/27/2016 CARLENE THRASHER N Ot Z79.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 06/11/2016 MANDA BECKMAN, LEON Medrano Ot I10 ESSENTIAL (PRIMARY) HYPERTENSION 07/14/2016 PRICECHARLENEAN N Ot C92.10 CHRONIC MYELOID LEUK, BCR/ABL-POSITIVE, 07/14/2016 PRICE BOBAN N Ot D50.9 IRON DEFICIENCY ANEMIA, UNSPECIFIED 07/14/2016 PRICECARLENE N Ot N18.3 CHRONIC KIDNEY DISEASE, STAGE 3 (MODERAT 07/14/2016 PRICE BOBAN N Ot Z79.899 OTHER PRISON (CURRENT) DRUG THERAPY 07/15/2016 PRICE BOBAN N Ot C92.10 CHRONIC MYELOID LEUK, BCR/ABL-POSITIVE, 07/15/2016 PRICE BOBAN N Ot D50.9 IRON DEFICIENCY ANEMIA, UNSPECIFIED 07/15/2016 PRICE BOBAN N Ot N18.3 CHRONIC KIDNEY DISEASE, STAGE 3 (MODERAT 07/15/2016 PRICE BOBAN N Ot Z79.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 10/19/2016 PRICECARLENE N Ot C92.10 CHRONIC MYELOID LEUK, BCR/ABL-POSITIVE, 10/19/2016 PRICECARLENE N Ot D50.9 IRON DEFICIENCY ANEMIA, UNSPECIFIED 10/19/2016 PRICE BOBAN N Ot N18.3 CHRONIC KIDNEY DISEASE, STAGE 3 (MODERAT 10/19/2016 PRICE BOBAN N Ot Z79.899 OTHER PRISON (CURRENT) DRUG THERAPY 11/03/2016 Ot V76.12 OTH SCREEN MAMMO-MALIGN NEOPLASM OF JAYLEEN 11/03/2016 Ot V76.12 OTH SCREEN MAMMO-MALIGN NEOPLASM OF JAYLEEN 11/03/2016 RUSSELL CARRENOP Ot 205.10 CHRONIC MYELOID LEUKEMIA, W/O MENTION AC 11/03/2016 RUSSELL CARRENO FRINGE KNOTTER Ot 280.9 IRON DEFIC ANEMIA NOS 11/03/2016 RUSSELL CARRENO FRINGE KNOTTER Ot 284.19 OTHER PANCYTOPENIA 11/03/2016 RUSSELL CARRENOP Ot 782.3 EDEMA 11/03/2016 RUSSELL CARRENO Ot V58.69 OTH MED,LT,CURRENT USE 11/03/2016 RUSSELL CARRENOP Ot 729.5 PAIN IN LIMB 11/03/2016 RUSSELL CARRENO FRINGE KNOTTER Ot 205.10 CHRONIC MYELOID LEUKEMIA, W/O MENTION AC 11/03/2016 DAHIANA CARRENOGEE Tovar FRINGE KNOTTER Ot 280.9 IRON DEFIC ANEMIA NOS 11/03/2016 RUSSELL CARRENO FRINGE KNOTTER Ot 585.3 CHRONIC KIDNEY DISEASE, STAGE III (MODER 11/03/2016 RUSSELL CARRENO La FRINGE KNOTTER Ot V44.3 COLOSTOMY STATUS 11/03/2016 RUSSELL CARRENO FRINGE KNOTTER Ot V58.69 OT MED,LT,CURRENT USE 11/03/2016 MANDA BECKMAN, LEON Medrano Ot 793.82 INCONCLUSIVE MAMMOGRAM 11/03/2016 RUSSELL CARRENO FRINGE KNOTTER Ot 205.10 CHRONIC MYELOID LEUKEMIA, W/O MENTION AC 11/03/2016 RUSSELL CARRENO FRINGE KNOTTER Ot 280.9 IRON DEFIC ANEMIA NOS 11/03/2016 DAHIANA CARRENOGEE La FRINGE KNOTTER Ot 585.3 CHRONIC KIDNEY DISEASE, STAGE III (MODER 11/03/2016 RUSSELL CARRENO FRINGE KNOTTER Ot V44.3 COLOSTOMY STATUS 11/03/2016 RUSSELL CARRENO La FRINGE KNOTTER Ot V58.69 OT MED,LT,CURRENT USE 11/03/2016 MANDA BECKMAN, LEON Medrano Ot V76.12 OT SCREEN MAMMO-MALIGN NEOPLASM OF JAYLEEN 11/03/2016 RUSSELL CARRENOP Ot C92.10 CHRONIC MYELOID LEUK, BCR/ABL-POSITIVE, 11/03/2016 RUSSELL CARRENO FRINGE KNOTTER Ot D50.0 IRON DEFICIENCY ANEMIA SECONDARY TO BLOO 11/03/2016 RUSSELL CARRENO FRINGE KNOTTER Ot Z79.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 11/03/2016 Ot Z12.31 ENCNTR SCREEN MAMMOGRAM FOR MALIGNANT NE 11/03/2016 MANDA BECKMAN, LEON Medrano Ot I10 ESSENTIAL (PRIMARY) HYPERTENSION 11/03/2016 CARLENE THRASHER Ot C92.10 CHRONIC MYELOID LEUK, BCR/ABL-POSITIVE, 11/03/2016 CARLENE THRASHER Ot D50.9 IRON DEFICIENCY ANEMIA, UNSPECIFIED 11/03/2016 CARLENE THRASHER Ot N18.3 CHRONIC KIDNEY DISEASE, STAGE 3 (MODERAT 11/03/2016 CARLENE THRASHER Ot Z79.899 OTHER PRISON (CURRENT) DRUG THERAPY 11/04/2016 RUSSELL CARRENO FRINGE KNOTTER Ot M79.605 PAIN IN LEFT LEG 11/04/2016 RUSSELL CARRENO FRINGE KNOTTER Ot M79.89 OTHER SPECIFIED SOFT TISSUE DISORDERS 11/22/2016 RUSSELL CARRENO FRINGE KNOTTER Ot M79.605 PAIN IN LEFT LEG 11/22/2016 RUSSELL CARRENO FRINGE KNOTTER Ot M79.89 OTHER SPECIFIED SOFT TISSUE DISORDERS 11/24/2016 PRICE CARLENE N Ot C92.10 CHRONIC MYELOID LEUK, BCR/ABL-POSITIVE, 11/24/2016 PRICE, CARLENE N Ot D50.9 IRON DEFICIENCY ANEMIA, UNSPECIFIED 11/24/2016 PRICE, CARLENE N Ot N18.3 CHRONIC KIDNEY DISEASE, STAGE 3 (MODERAT 11/24/2016 PRICE, CHARLENELIBRA N Ot Z79.899 OTHER PRISON (CURRENT) DRUG THERAPY 01/13/2017 RUSSELL CARRENO FRINGE KNOTTER Ot N18.3 CHRONIC KIDNEY DISEASE, STAGE 3 (MODERAT 01/16/2017 PRICECARLENE N Ot C92.10 CHRONIC MYELOID LEUK, BCR/ABL-POSITIVE, 01/16/2017 PRICECARLENE N Ot D50.9 IRON DEFICIENCY ANEMIA, UNSPECIFIED 01/16/2017 PRICE CHARLENELIBRA N Ot N18.3 CHRONIC KIDNEY DISEASE, STAGE 3 (MODERAT 01/16/2017 PRICECARLENE DIAZ N Ot Z79.899 OTHER PRISON (CURRENT) DRUG THERAPY 01/21/2017 Ot V76.12 OTH SCREEN MAMMO-MALIGN NEOPLASM OF JAYLEEN 01/21/2017 RUSSELL CARRENO FRINGE KNOTTER Ot 205.10 CHRONIC MYELOID LEUKEMIA, W/O MENTION AC 01/21/2017 RUSSELL CARRENO FRINGE KNOTTER Ot 280.9 IRON DEFIC ANEMIA NOS 01/21/2017 RUSSELL CARRENO FRINGE KNOTTER Ot 284.19 OTHER PANCYTOPENIA 01/21/2017 RUSSELL CARRENO FRINGE KNOTTER Ot 782.3 EDEMA 01/21/2017 RUSSELL CARRENO FRINGE KNOTTER Ot V58.69 OTH MED,LT,CURRENT USE 01/21/2017 RUSSELL CARRENO FRINGE KNOTTER Ot 729.5 PAIN IN LIMB 01/21/2017 RUSSELL CARRENO FRINGE KNOTTER Ot 205.10 CHRONIC MYELOID LEUKEMIA, W/O MENTION AC 01/21/2017 CARRENORUSSELL Tovar FRINGE KNOTTER Ot 280.9 IRON DEFIC ANEMIA NOS 01/21/2017 CARRENORUSSELL Tovar FRINGE KNOTTER Ot 585.3 CHRONIC KIDNEY DISEASE, STAGE III (MODER 01/21/2017 WAIRUSSELL FRINGE KNOTTER Ot V44.3 COLOSTOMY STATUS 01/21/2017 CARRENORUSSELL FRINGE KNOTTER Ot V58.69 OTH MED,LT,CURRENT USE 01/21/2017 MANDA BECKMAN, LEON Medrano Ot 793.82 INCONCLUSIVE MAMMOGRAM 01/21/2017 WAI RUSSELL Tovar FRINGE KNOTTER Ot 205.10 CHRONIC MYELOID LEUKEMIA, W/O MENTION AC 01/21/2017 WAIRUSSELL FRINGE KNOTTER Ot 280.9 IRON DEFIC ANEMIA NOS 01/21/2017 WAIRUSSELL FRINGE KNOTTER Ot 585.3 CHRONIC KIDNEY DISEASE, STAGE III (MODER 01/21/2017 WAI RUSSELL Tovar FRINGE KNOTTER Ot V44.3 COLOSTOMY STATUS 01/21/2017 WAI RUSSELL Tovar FRINGE KNOTTER Ot V58.69 OTH MED,LT,CURRENT USE 01/21/2017 MANDA BECKMAN, LEON Medrano Ot V76.12 OTH SCREEN MAMMO-MALIGN NEOPLASM OF JAYLEEN 01/21/2017 DAHIANA CARRENOGEE Tovar FRINGE KNOTTER Ot C92.10 CHRONIC MYELOID LEUK, BCR/ABL-POSITIVE, 01/21/2017 WAI RUSSELL Tovar FRINGE KNOTTER Ot D50.0 IRON DEFICIENCY ANEMIA SECONDARY TO BLOO 01/21/2017 WAI RUSSELL Tovar FRINGE KNOTTER Ot Z79.899 OTHER PRISON (CURRENT) DRUG THERAPY 01/21/2017 Ot Z12.31 ENCNTR SCREEN MAMMOGRAM FOR MALIGNANT NE 01/21/2017 MANDA BECKMAN, LEON Medrano Ot I10 ESSENTIAL (PRIMARY) HYPERTENSION 01/21/2017 WAI RUSSELL Tovar FRINGE KNOTTER Ot M79.605 PAIN IN LEFT LEG 01/21/2017 DAHIANA CARRENOGEE Tovar FRINGE KNOTTER Ot M79.89 OTHER SPECIFIED SOFT TISSUE DISORDERS 01/21/2017 WAI RUSSELL Tovar FRINGE KNOTTER Ot N18.3 CHRONIC KIDNEY DISEASE, STAGE 3 (MODERAT 01/21/2017 CARLENE THRASHER Ot C92.10 CHRONIC MYELOID LEUK, BCR/ABL-POSITIVE, 01/21/2017 CARLENE THRASHER Ot D50.9 IRON DEFICIENCY ANEMIA, UNSPECIFIED 01/21/2017 PRICE, BOBAN N Ot N18.3 CHRONIC KIDNEY DISEASE, STAGE 3 (MODERAT 01/21/2017 PRICE, BOBAN N Ot Z79.899 OTHER PRISON (CURRENT) DRUG THERAPY 02/02/2017 MANDA BECKMAN, LEON Medrano Ot Z12.31 ENCNTR SCREEN MAMMOGRAM FOR MALIGNANT NE 04/20/2017 PRICE, BOBAN N Ot C92.10 CHRONIC MYELOID LEUK, BCR/ABL-POSITIVE, 04/20/2017 PRICE, BOBAN N Ot D50.9 IRON DEFICIENCY ANEMIA, UNSPECIFIED 04/20/2017 PRICE, BOBAN N Ot N18.3 CHRONIC KIDNEY DISEASE, STAGE 3 (MODERAT 04/20/2017 PRICE, BOBAN N Ot Z79.899 OTHER PRISON (CURRENT) DRUG THERAPY 05/26/2017 PRICE, BOBAN N Ot C92.10 CHRONIC MYELOID LEUK, BCR/ABL-POSITIVE, 05/26/2017 PRICE, BOBAN N Ot D50.9 IRON DEFICIENCY ANEMIA, UNSPECIFIED 05/26/2017 PRICE, BOBAN N Ot N18.3 CHRONIC KIDNEY DISEASE, STAGE 3 (MODERAT 05/26/2017 PRICE, BOBAN N Ot Z79.899 OTHER PRISON (CURRENT) DRUG THERAPY 07/17/2017 PRICE, BOBAN N Ot C92.10 CHRONIC MYELOID LEUK, BCR/ABL-POSITIVE, 07/17/2017 PRICE, BOBAN N Ot D50.9 IRON DEFICIENCY ANEMIA, UNSPECIFIED 07/17/2017 PRICE, BOBAN N Ot N18.3 CHRONIC KIDNEY DISEASE, STAGE 3 (MODERAT 07/17/2017 PRICE, BOBAN N Ot Z79.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 10/18/2017 PRICE, BOBAN N Ot C92.10 CHRONIC MYELOID LEUK, BCR/ABL-POSITIVE, 10/18/2017 PRICE, BOBAN N Ot D50.9 IRON DEFICIENCY ANEMIA, UNSPECIFIED 10/18/2017 PRICE, BOBAN N Ot N18.3 CHRONIC KIDNEY DISEASE, STAGE 3 (MODERAT 10/18/2017 PRICE, BOBAN N Ot Z79.899 OTHER PRISON (CURRENT) DRUG THERAPY 11/24/2017 PRICE, BOBAN N Ot C92.10 CHRONIC MYELOID LEUK, BCR/ABL-POSITIVE, 11/24/2017 PRICE, BOBAN N Ot D50.9 IRON DEFICIENCY ANEMIA, UNSPECIFIED 11/24/2017 PRICE, BOBAN N Ot N18.3 CHRONIC KIDNEY DISEASE, STAGE 3 (MODERAT 11/24/2017 PRICE, BOBAN N Ot 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.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 01/15/2018 PRICE, BOBAN N Ot C92.10 CHRONIC MYELOID LEUK, BCR/ABL-POSITIVE, 01/15/2018 PRICE, BOBAN N Ot D50.9 IRON DEFICIENCY ANEMIA, UNSPECIFIED 01/15/2018 PRICE, BOBAN N Ot N18.3 CHRONIC KIDNEY DISEASE, STAGE 3 (MODERAT 01/15/2018 PRICE, BOBAN N Ot 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.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 01/17/2018 PRICE, BOBAN N Ot C92.10 CHRONIC MYELOID LEUK, BCR/ABL-POSITIVE, 01/17/2018 PRICE, BOBAN N Ot D50.9 IRON DEFICIENCY ANEMIA, UNSPECIFIED 01/17/2018 PRICE, BOBAN N Ot N18.3 CHRONIC KIDNEY DISEASE, STAGE 3 (MODERAT 01/17/2018 PRICE, BOBAN N Ot 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 Results There is no data. Encounters ACCT No. Visit Date/Time Discharge Status Pt. Type Provider Facility Loc./Unit Complaint [id number] 08/23/2014 16:01:00 08/23/2014 23:59:59 [facility] Outpatient EVELYN MORALES APRN [id number] 09/10/2013 10:51:00 09/10/2013 23:59:59 CLS Outpatient EVELYN MORALES APRN [id number] 05/01/2015 09:48:35 [facility] Document Registration [id number] 01/25/2018 08:45:00 01/25/2018 23:59:59 CLS Outpatient LEON HOLMAN MD [facility] RAD SCREENING MAMMO [id number] 01/16/2018 00:11:00 01/16/2018 23:59:59 CLS Preadmit CARLENE THRASHER [facility] ONC LAB [id number] 10/31/2017 12:47:00 01/15/2018 00:01:00 DIS Outpatient CARLENE THRASHER [facility] ONC LAB [id number] 05/02/2017 13:15:00 07/17/2017 00:01:00 DIS Outpatient CARLENE THRASHER [facility] ONC LAB [id number] 01/21/2017 10:22:00 01/21/2017 23:59:59 CLS Outpatient LEON HOLMAN MD [facility] RAD SCREENING [id number] 12/27/2016 08:39:00 01/16/2017 00:01:00 DIS Outpatient CARLENE THRASHER [facility] ONC LAB [id number] 12/31/2016 09:46:00 12/31/2016 23:59:59 CLS Outpatient RUSSELL CARRENO [facility] [facility] RAD CKD [id number] 11/03/2016 16:12:00 11/03/2016 23:59:59 CLS Outpatient RUSSELL CARRENO FRINGE KNOTTER [facility] RAD LT LEG SWELLING/PAIN [id number] 04/29/2016 08:49:00 07/14/2016 00:01:00 DIS Outpatient CARLENE THRASHER [facility] ONC LAB [id number] 05/19/2016 10:02:00 05/19/2016 23:59:59 CLS Outpatient LEON HOLMAN MD [facility] CARD HTN [id number] 04/21/2016 15:28:00 05/18/2016 16:35:00 DIS Outpatient LEON HOLMAN MD [facility] REHAB B LE LYMPHEDEMA GARMENT MEASUREMENT [id number] 10/16/2015 08:44:00 01/14/2016 00:01:00 DIS Outpatient CARLENE THRASHER N [facility] ONC LAB [id number] 2015 09:49:00 2015 23:59:59 CLS Outpatient RUSSELL CARRENO S FRINGE KNOTTER [facility] ONC [id number] 05/01/2015 09:48:00 07/16/2015 00:01:00 DIS Outpatient CARLENE THRASHER N [facility] ONC LAB [id number] 01/16/2015 15:20:00 04/16/2015 00:01:00 DIS Outpatient CARLENE THRASHER [facility] ONC LAB [id number] 11/19/2014 15:15:00 11/19/2014 23:59:59 CLS Outpatient LEON HOLMAN MD [facility] RAD SCREENING [id number] 10/23/2014 10:50:00 10/23/2014 23:59:59 CLS Outpatient RUSSELL CARRENO S FRINGE KNOTTER [facility] ONC [id number] 10/17/2014 15:25:00 10/17/2014 23:59:59 CLS Outpatient CARLENE THRASHER [facility] ONC LAB [id number] 04/18/2014 10:11:00 07/03/2014 00:01:00 DIS Outpatient CARLENE THRASHER N [facility] ONC LAB [id number] 01/03/2014 14:29:00 01/13/2014 00:01:00 DIS Outpatient CARLENE THRASHER N [facility] ONC LAB [id number] 10/22/2013 15:23:00 10/22/2013 23:59:59 CLS Outpatient LEON HOLMAN MD [facility] RAD SCREENING [id number] 10/09/2013 09:41:00 10/09/2013 23:59:59 CLS Outpatient RUSSELL CARRENO S FRINGE KNOTTER [facility] ONC [id number] 10/01/2013 15:13:00 10/03/2013 00:01:00 DIS Outpatient CARLENE THRASHER [facility] ONC LAB [id number] 03/26/2013 15:14:00 06/24/2013 00:01:00 DIS Outpatient CARLENE THRASHER [facility] ONC LAB [id number] 06/03/2013 06:58:00 06/03/2013 09:45:00 DIS Emergency JHON DYE MD [facility] ER BLEEDING FROM STOMA [id number] 04/11/2013 10:42:00 04/11/2013 23:59:59 CLS Outpatient RUSSELL CARRENOP [facility] RAD SWELLING [id number] 04/10/2013 09:49:00 04/10/2013 23:59:59 CLS Outpatient RUSSELL CARRENO FRINGE KNOTTER [facility] ONC [id number] 01/01/2013 16:35:00 03/25/2013 00:01:00 DIS Outpatient CARLENE THRASHER [facility] ONC LAB [id number] 03/08/2018 20:49:00 ACT Emergency KATE BECKMAN, VAMSI Medrano [facility] ER L LOWER LEG AND FOOT SWELLING;DOG BITE [id number] 03/07/2018 11:31:00 ACT Outpatient LEON HOLMAN MD [facility] RAD ABD PAIN [id number] 12/18/2015 15:22:00 Document Registration [id number] 10/02/2012 14:47:00 Document Registration [id number] 09/21/2012 15:17:00 Document Registration [id number] 07/24/2012 15:15:00 Document Registration [id number] 03/16/2012 12:53:00 Document Registration [id number] 09/16/2011 12:48:00 Document Registration [id number] 06/16/2011 14:16:00 Document Registration [id number] 05/19/2011 12:26:00 Document Registration [id number] 04/19/2011 08:01:00 Document Registration [id number] 03/01/2011 12:44:00 Document Registration [id number] 11/16/2010 12:56:00 Document Registration [id number] 11/11/2010 09:48:00 Document Registration [id number] 11/11/2010 09:46:00 Document Registration [id number] 08/13/2010 12:30:00 Document Registration
--- NOTE | 2018-03-08 21:03 | ED Integumentary General ---
General Chief Complaint: Bite-Animal/Human/Insect Stated Complaint: L LOWER LEG AND FOOT SWELLING;DOG BITE Source: patient Exam Limitations: no limitations History of Present Illness Date Seen by Provider: Mar 08, 2018 Time Seen by Provider: 20:57 Initial Comments The patient presents to the ER by private conveyance with a chief complaint that yesterday she was bit on her left foot on the last 3 toes by her dog, a should suit. She thought the wounds looked pretty clear and keep clean them up and left them open to air today. Her dog has been euthanized since then because of other behavioral issues by that. She says it was up-to-date on rabies vaccinations and she had a tetanus shot about a year and a half ago June 2016. Apparently he has bit her in the past. However today she said her foot was swollen and she had difficulty getting it into the shoe so she decided to come get it checked out. She's having no fevers chills shortness of breath, cough, chest pain or abdominal pain. Allergies and Home Medications Allergies Coded Allergies: Sulfa (Sulfonamide Antibiotics) (Verified Allergy, Unknown, 09/11/09) famotidine (Verified Allergy, Unknown, 09/11/09) Home Medications Dasatinib 70 Mg Tablet, 70 MG PO DAILY, (Reported) Enalapril Maleate 10 Mg Tab, 10 MG PO DAILY, (Reported) Folic Acid 1 Mg Tablet, 1 MG PO DAILY, (Reported) Hydrochlorothiazide 25 Mg Tab, 25 MG PO DAILY, (Reported) Simvastatin 10 Mg Tablet, 10 MG PO DAILY, (Reported) Patient Home Medication List Home Medication List Reviewed: Yes Constitutional: No chills, No diaphoresis EENTM: No ear discharge, No ear pain Respiratory: No cough, No short of breath Cardiovascular: No chest pain; edema; No palpitations Gastrointestinal: No abdominal pain, No constipation, No diarrhea, No nausea Genitourinary: No discharge, No dysuria Past Nipglrt-Mshnxa-Vxwbwb Hx Patient Social History Alcohol Use: Denies Use Recreational Drug Use: No Smoking Status: Never a Smoker Recent Foreign Travel: No Contact w/Someone Who Travel: No Immunizations Up To Date Tetanus Booster (TDap): More than 5yrs Date of Pneumonia Vaccine: Aug 14, 2012 Past Medical History Reproductive Disorders: Yes Female Reproductive Disorders: Endometriosis Obstructive Bowel Leukemia Family Medical History No Pertinent Family Hx Physical Exam Vital Signs Vital Signs - First Documented 03/08/18 21:02 Temp 98.5 Pulse 89 Resp 18 B/P (MAP) 186/91 (122) Pulse Ox 97 Capillary Refill : General Appearance: WD/WN, no apparent distress HEENT: PERRL/EOMI, pharynx normal Neck: non-tender, supple, normal inspection Cardiovascular: normal peripheral pulses, regular rate, rhythm Respiratory: chest non-tender, lungs clear Gastrointestinal: normal bowel sounds, non tender, soft Neurologic/Psychiatric: alert, oriented x 3 Skin: other (bruising and mild swelling of the left foot third fourth and fifth digits. Tenderness to palpation over the fifth digit. Mild tenderness over the distal metatarsal heads. Mild erythema but no deep wounds, induration, area of fluctuance or discharge. There are some skin tears that are about 2-5 mm across on the dorsum of the left foot.) Lymphatic: other (capillary refill less than 3 seconds. Tendons intact. Sensation and motor are intact.) Progress/Results/Core Measures Lab Results Laboratory Tests Test 03/08/18 21:20 Range/Units White Blood Count 3.6 L 4.3-11.0 10^3/uL Red Blood Count 3.52 L 4.35-5.85 10^6/uL Hemoglobin 10.8 L 11.5-16.0 G/DL Hematocrit 31 L 35-52 % Mean Corpuscular Volume 89 80-99 FL Mean Corpuscular Hemoglobin 31 25-34 PG Mean Corpuscular Hemoglobin Concent 34 32-36 G/DL Red Cell Distribution Width 13.5 10.0-14.5 % Platelet Count 169 130-400 10^3/uL Mean Platelet Volume 8.7 7.4-10.4 FL Neutrophils (%) (Auto) 59 42-75 % Lymphocytes (%) (Auto) 17 12-44 % Monocytes (%) (Auto) 22 H 0-12 % Eosinophils (%) (Auto) 2 0-10 % Basophils (%) (Auto) 0 0-10 % Neutrophils # (Auto) 2.1 1.8-7.8 X 10^3 Lymphocytes # (Auto) 0.6 L 1.0-4.0 X 10^3 Monocytes # (Auto) 0.8 0.0-1.0 X 10^3 Eosinophils # (Auto) 0.1 0.0-0.3 10^3/uL Basophils # (Auto) 0.0 0.0-0.1 10^3/uL Sodium Level 134 L 135-145 MMOL/L Potassium Level 3.8 3.6-5.0 MMOL/L Chloride Level 98 98-107 MMOL/L Carbon Dioxide Level 26 21-32 MMOL/L Anion Gap 10 5-14 MMOL/L Blood Urea Nitrogen 16 7-18 MG/DL Creatinine 0.84 0.60-1.30 MG/DL Estimat Glomerular Filtration Rate > 60 BUN/Creatinine Ratio 19 Glucose Level 97 70-105 MG/DL Calcium Level 9.7 8.5-10.1 MG/DL Total Bilirubin 0.5 0.1-1.0 MG/DL Aspartate Amino Transf (AST/SGOT) 26 5-34 U/L Alanine Aminotransferase (ALT/SGPT) 20 0-55 U/L Alkaline Phosphatase 75 40-136 U/L C-Reactive Protein High Sensitivity 1.14 H 0.00-0.50 MG/DL Total Protein 8.1 6.4-8.2 GM/DL Albumin 4.7 H 3.2-4.5 GM/DL My Orders Orders - VAMSI LOVE Cbc With Automated Diff (03/08/18 21:01) Comprehensive Metabolic Panel (03/08/18 21:01) Hs C Reactive Protein (03/08/18 21:01) Foot, Left, 3 Views (03/08/18 21:01) Amoxicillin/Clavulanate Tablet (Augmenti (03/08/18 21:30) Medications Given in ED Current Medications Medications Dose Ordered Sig/Brenda Route Start Time Stop Time Status Last Admin Dose Admin Amoxicillin/ Clavulanate Potassium 875 mg ONCE ONCE PO 03/08/18 21:30 03/08/18 21:31 DC 03/08/18 21:50 875 MG Vital Signs/I&O 03/08/18 21:02 Temp 98.5 Pulse 89 Resp 18 B/P (MAP) 186/91 (122) Pulse Ox 97 Progress Note #1: Time: 21:20 Progress Note We'll clean up his wound with chlorhexidine soap water and all the wounds appear to be rather superficial skin tears. We will douse it in Betadine as well. Plan to get an x-ray to make sure there is no fractures or free air in the tissue. We'll get a CBC, CMP, CRP. Looking for evidence of wound infection. Finally since his wound presents to us as an old wound will ahead and give her antibiotic prophylaxis with Augmentin twice a day. Progress Note #2: Time: 22:06 Progress Note Patient has a fractured toe which would explain her swelling. CRP is not remarkable. White count wall little on the low side is consistent with what is been for last couple years. Her hemoglobin is also stable from back in October 10 mg/dL. We will let her go home on Augmentin. Diagonstic Imaging: Xray Plain Films/CT/US/NM/MRI: other (Left Foot) Comments Fifth proximal phalanx of the left foot oblique fracture closed. NAME: THALIABAUTISTA Moralez MED REC#: [id number] PHYSICIAN: VAMSI LOVE MD CC: DENICE HARPER MD; VAMSI LOVE Page 2 of 2 RADIOLOGY REPORT [facility] [place] CC: DENICE HARPER MD; VAMSI LOVE Page 1 of 1 RADIOLOGY REPORT NAME: THALIABAUTISTA Moralez MED REC#: [id number] PT STATUS: REG ER : 1955 PHYSICIAN: VAMSI LOVE MD ADMIT DATE: 03/08/18/ER Signed Date of Exam: 03/08/18 FOOT, LEFT, 3 VIEWS EXAMINATION: Left foot radiographs, 3 views. COMPARISON: None. HISTORY: 62-year-old female, dog bite. Lacerations and swelling of the third, fourth, and fifth digits. FINDINGS: There is a mildly displaced obliquely oriented fracture involving the fifth proximal phalanx extending from the level of the proximal metadiaphysis to at least the level of the distal metadiaphysis. There is no intra-articular fracture extension proximally. No definite intra-articular fracture extension distally. There is no identified radiopaque foreign body. No additional fracture is identified. There is no cortical or aggressive bone destruction. There is adjacent soft tissue swelling. There is uncovering of the lateral sesamoid of the first digit. IMPRESSION: 1. Mildly displaced obliquely oriented fracture of the fifth proximal phalanx without identified definite intra-articular fracture extension. 2. No radiopaque foreign body. 3. No radiographic evidence of osteomyelitis. Dictated by: Dictated on workstation # [id number] Dict: 03/08/182130 Trans: 03/08/182135 Interpreted by: DENICE HARPER MD Electronically signed by: DENICE HARPER MD 03/08/182135 Reviewed: Reviewed by Me Departure Impression Primary Impression: Toe fracture, left Qualified Codes: S92.515A - Nondisplaced fracture of proximal phalanx of left lesser toe(s), initial encounter for closed fracture Additional Impression: Dog bite of toe Qualified Codes: S91.159A - Open bite of unspecified toe(s) without damage to nail, initial encounter; W54.0XXA - Bitten by dog, initial encounter Disposition: 01 HOME, SELF-CARE Condition: Stable Departure-Patient Inst. Decision time for Depature: 22:08 Referrals: LEON HOLMAN MD (PCP/Family) Primary Care Physician Patient Instructions: Animal Bites (DC) Add. Discharge Instructions: Take the Augmentin one tablet twice a day for the next 7 days. Tony tape her toe to the other toe and use ice for 20 minutes every 4 hours for the first 2 or 3 days. You can use Motrin 800 mg every 8 hours as well as Tylenol 1000 mg every 8 hours. You can follow-up early next week with your primary care provider to ensure that the healing process is going well. Keep the foot elevated when possible to help keep swelling down. All discharge instructions reviewed with patient and/or family. Voiced understanding. Scripts Amoxicillin/Potassium Clav (Augmentin 875-125 Tablet) 1 Each Tablet 1 EACH PO BID for 7 Days, #14 TAB 0 Refills Prov: VAMSI LOVE 03/08/18 Copy Copies To 1: LEON HOLMAN MD, TITUS J Mar 08, 2018 21:03
[2018-03-08] MEDS ORDERED: AUGMENTIN 875 MG TAB (AMOXICILLIN/CLAVULANATE) PO ONE (21:30)
[2018-03-08 21:35] LABS: BASOPHILS % (AUTO) 0 % (0-10); EOSINOPHILS # (AUTO) 0.1 10^3/uL (0.0-0.3); EOSINOPHILS % (AUTO) 2 % (0-10); HEMATOCRIT 31 % (35-52); HEMOGLOBIN 10.8 G/DL (11.5-16.0); LYMPHOCYTES # (AUTO) 0.6 X 10^3 (1.0-4.0); LYMPHOCYTES % (AUTO) 17 % (12-44); MEAN CORPUSCULAR HEMOGLOBIN 31 PG (25-34); MEAN CORPUSCULAR HGB CONC 34 G/DL (32-36); MEAN CORPUSCULAR VOLUME 89 FL (80-99); MEAN PLATELET VOLUME 8.7 FL (7.4-10.4); MONOCYTES # (AUTO) 0.8 X 10^3 (0.0-1.0); MONOCYTES % (AUTO) 22 % (0-12); NEUTROPHILS # (AUTO) 2.1 X 10^3 (1.8-7.8); NEUTROPHILS % (AUTO) 59 % (42-75); PLATELET COUNT 169 10^3/uL (130-400); RED BLOOD COUNT 3.52 10^6/uL (4.35-5.85); RED CELL DISTRIBUTION WIDTH 13.5 % (10.0-14.5); WHITE BLOOD COUNT 3.6 10^3/uL (4.3-11.0)
--- NOTE | 2018-03-08 21:36 | Diagnostic Imaging Report ---
EXAMINATION: Left foot radiographs, 3 views. COMPARISON: None. HISTORY: 62-year-old female, dog bite. Lacerations and swelling of the third, fourth, and fifth digits. FINDINGS: There is a mildly displaced obliquely oriented fracture involving the fifth proximal phalanx extending from the level of the proximal metadiaphysis to at least the level of the distal metadiaphysis. There is no intra-articular fracture extension proximally. No definite intra-articular fracture extension distally. There is no identified radiopaque foreign body. No additional fracture is identified. There is no cortical or aggressive bone destruction. There is adjacent soft tissue swelling. There is uncovering of the lateral sesamoid of the first digit. IMPRESSION: 1. Mildly displaced obliquely oriented fracture of the fifth proximal phalanx without identified definite intra-articular fracture extension. 2. No radiopaque foreign body. 3. No radiographic evidence of osteomyelitis. Dictated by: Dictated on workstation # [id number]
[2018-03-08 22:05] LABS: ALANINE AMINOTRANSFERASE 20 U/L (0-55); ALBUMIN 4.7 GM/DL (3.2-4.5); ALKALINE PHOSPHATASE 75 U/L (40-136); BILIRUBIN,TOTAL 0.5 MG/DL (0.1-1.0); BUN/CREATININE RATIO 19; CALCIUM 9.7 MG/DL (8.5-10.1); CARBON DIOXIDE 26 MMOL/L (21-32); CHLORIDE 98 MMOL/L (98-107); CREATININE SERUM 0.84 MG/DL (0.60-1.30); GFR ESTIMATED > 60; GLUCOSE 97 MG/DL (70-105); POTASSIUM 3.8 MMOL/L (3.6-5.0); SODIUM 134 MMOL/L (135-145); TOTAL PROTEIN 8.1 GM/DL (6.4-8.2)
[2018-03-08] MEDS ORDERED: AMOX-358 PO (22:13)
[2018-03-08 22:18] VITALS: BP 145/78
== END 2018-03-08 22:18 | disposition home or self-care (01) ==
LOC: EDUNIT# 20:48 → ER 20:49
DX: S92.512A Displaced fracture of proximal phalanx of left lesser toe(s), initial encounter for closed fracture (principal); S91.155A Open bite of left lesser toe(s) without damage to nail, initial encounter; D72.829 Elevated white blood cell count, unspecified; Z87.19 Personal history of other diseases of the digestive system; Z87.42 Personal history of other diseases of the female genital tract; Z88.2 Allergy status to sulfonamides; Z88.8 Allergy status to other drugs, medicaments and biological substances; W54.0XXA Bitten by dog, initial encounter
CPT/HCPCS: 36415; 73630; 80053; 85025; 86141

== ENCOUNTER 2018-05-01 09:46 | Outpatient (RCR) | payer BC ==
[2018-04-17 08:56] LABS: BASOPHILS % (AUTO) 0 % (0-10); EOSINOPHILS # (AUTO) 0.1 10^3/uL (0.0-0.3); EOSINOPHILS % (AUTO) 3 % (0-10); HEMATOCRIT 30 % (35-52); HEMOGLOBIN 10.6 G/DL (11.5-16.0); LYMPHOCYTES # (AUTO) 0.7 X 10^3 (1.0-4.0); LYMPHOCYTES % (AUTO) 24 % (12-44); MEAN CORPUSCULAR HEMOGLOBIN 32 PG (25-34); MEAN CORPUSCULAR HGB CONC 35 G/DL (32-36); MEAN CORPUSCULAR VOLUME 92 FL (80-99); MEAN PLATELET VOLUME 8.9 FL (7.4-10.4); MONOCYTES # (AUTO) 0.5 X 10^3 (0.0-1.0); MONOCYTES % (AUTO) 18 % (0-12); NEUTROPHILS # (AUTO) 1.5 X 10^3 (1.8-7.8); NEUTROPHILS % (AUTO) 55 % (42-75); PLATELET COUNT 162 10^3/uL (130-400); RED BLOOD COUNT 3.31 10^6/uL (4.35-5.85); WHITE BLOOD COUNT 2.7 10^3/uL (4.3-11.0)
[2018-04-17 09:16] LABS: ALANINE AMINOTRANSFERASE 20 U/L (0-55); ALBUMIN 4.1 GM/DL (3.2-4.5); ALKALINE PHOSPHATASE 76 U/L (40-136); BILIRUBIN,TOTAL 0.4 MG/DL (0.1-1.0); BUN/CREATININE RATIO 16; CALCIUM 9.4 MG/DL (8.5-10.1); CARBON DIOXIDE 24 MMOL/L (21-32); CHLORIDE 102 MMOL/L (98-107); CREATININE SERUM 0.91 MG/DL (0.60-1.30); GFR ESTIMATED > 60; GLUCOSE 122 MG/DL (70-105); SODIUM 136 MMOL/L (135-145)
[~2018-05-01 09:46] MED LIST changes: +AMOX-358 PO
== END 2018-05-04 09:09 | disposition home or self-care (01) ==
LOC: ONC 09:46
PROVIDERS: ATTEND Internal Medicine Hematology & Oncology
DX: C92.10 Chronic myeloid leukemia, BCR/ABL-positive, not having achieved remission (principal); D50.9 Iron deficiency anemia, unspecified; N18.3 Chronic kidney disease, stage 3 (moderate); Z79.899 Other long term (current) drug therapy
CPT/HCPCS: 36415; 80053; 81206; 82728; 83615; 85025; 99213

== ENCOUNTER → 2018-06-15 | Outpatient (CLI) | payer BC ==
--- NOTE | 2018-06-15 12:51 | Diagnostic Imaging Report ---
INDICATION: Multiple fractures. COMPARISON: No prior studies are available for comparison. FINDINGS: Bone marrow analysis of the lumbar spine and both hips was performed. Bone mineral density of the lumbar spine L2-L4 is 1.132 with T score of -0.6. Bone mineral density of left femoral neck is 0.879 with T score of -1.1. Bone mineral density of right femoral neck is 0.875 with T score of -1.2. IMPRESSION: Normal bone mineral density of the lumbar spine with osteopenia of bilateral femoral necks. Dictated by: Dictated on workstation # [id number]
== END ==
LOC: RAD 08:58
PROVIDERS: ATTEND Family Medicine
DX: T14.8XXA Other injury of unspecified body region, initial encounter (principal); M85.88 Other specified disorders of bone density and structure, other site
CPT/HCPCS: 77080

== ENCOUNTER 2018-07-03 05:33 | Outpatient (CLI) | payer BC ==
[~2018-07-03] VITALS: Ht 157.5 cm; Wt 73.9 kg
[2018-07-03] MEDS ORDERED: FOLI1TAB24 PO (09:46)
[2018-07-03] MEDS ORDERED: CALC-823 PO (09:46)
[2018-07-03] MEDS ORDERED: BRIM5DRO OP (09:46)
[2018-07-03] MEDS ORDERED: HYDR25TA4 PO (09:46)
[2018-07-03] MEDS ORDERED: FERR270T PO (09:46)
[2018-07-03] MEDS ORDERED: LATA7.5D OS (09:46)
[2018-07-03] MEDS ORDERED: ENAL20TA PO (09:46)
[2018-07-03] MEDS ORDERED: SIMV10TA3 PO (09:46)
[2018-07-03] MEDS ORDERED: MULT-35 PO (09:46)
[2018-07-03] MEDS ORDERED: DASA70TA PO (09:46)
[2018-07-03] MEDS ORDERED: KETO10DR5 OP (09:46)
== END 2018-07-03 09:51 | disposition home or self-care (01) ==
LOC: PREOP 05:33
PROVIDERS: ATTEND Surgery
DX: Z01.818 Encounter for other preprocedural examination (principal)

== ENCOUNTER → 2018-08-18 | Outpatient (CLI) | payer BC ==
[~2018-08-18] MED LIST changes: +BRIM5DRO OP; +CALC-823 PO; +ENAL20TA PO; +FERR270T PO; +HYDR25TA4 PO; +KETO10DR5 OP; +LATA7.5D OS; +MULT-35 PO
--- NOTE | 2018-08-18 17:53 | Diagnostic Imaging Report ---
INDICATION: Neck fullness. Thyroid sonography is performed in the routine fashion. The right thyroid lobe measures 5.8 x 3.0 x 2.4 cm. The left thyroid lobe measures 4.1 x 1.7 x 1.1 cm. On the right side, there is a complex hypoechoic lesion inferiorly in the right thyroid lobe measuring 3.0 x 2.6 x 2.0 cm. This appears to contain some questionable calcifications. There is also a 1.7 x 1.4 cm complex isoechoic lesion in the superior portion of the right thyroid lobe. On the left side, there is a small 6 x 5 mm hypoechoic complex nodule. IMPRESSION: Bilateral thyroid lesions, right much larger than left. The dominant lesion in the right thyroid lobe could be biopsied under ultrasound if clinically desired. Dictated by: Dictated on workstation # [id number]
== END ==
LOC: RAD 15:25
PROVIDERS: ATTEND Family Medicine
DX: E07.89 Other specified disorders of thyroid (principal)
CPT/HCPCS: 76536

== ENCOUNTER → 2018-08-31 | Outpatient (CLI) | payer BC ==
[~2018-08-31] VITALS: Ht 157.5 cm; Wt 73.5 kg
[~2018-08-31] MED LIST changes: +LIDOCAINE 1% INJ 20 ML 20 ML VIAL INJ ONE; +LIDOCAINE 1% INJ 20 ML 20 ML VIAL ONE
--- NOTE | 2018-08-31 16:33 | Diagnostic Imaging Report ---
INDICATION: Right thyroid mass. Patient presents for fine-needle aspiration using ultrasound guidance. FINDINGS: Patient was brought to the procedure room, placed on the table in the supine position. Ultrasound imaging over the right neck was performed to evaluate appropriate entry site. Right neck was then prepped and draped in the usual sterile fashion. Small amount of 1% lidocaine was utilized for local anesthesia. A total of four passes were made into the hypoechoic dominant mass in the lower pole of the right lobe of the thyroid with 25-gauge needle. Fine-needle aspiration was performed. Needle was removed and hemostasis was obtained using manual compression. Patient tolerated the procedure well and left the department in stable condition. IMPRESSION: Ultrasound-guided fine-needle aspiration of the dominant hypoechoic mass in the lower pole of the right lobe of the thyroid. Cytology results are pending. Dictated by: Dictated on workstation # [id number]
== END ==
LOC: RAD 13:29
PROVIDERS: ATTEND Family Medicine
DX: E04.2 Nontoxic multinodular goiter (principal)
CPT/HCPCS: 76942; 88173; 88305

== ENCOUNTER → 2018-12-18 | Outpatient (CLI) | payer BC ==
[~2018-12-18] MED LIST changes: -LIDOCAINE 1% INJ 20 ML 20 ML VIAL INJ ONE; -LIDOCAINE 1% INJ 20 ML 20 ML VIAL ONE
--- NOTE | 2018-12-18 10:03 | Diagnostic Imaging Report ---
INDICATION: Thyroid mass, followup TECHNIQUE: Grayscale sonographic images of the thyroid gland. CORRELATION STUDY: 08/18/2018 FINDINGS: RIGHT LOBE: 4.9 x 2.3 x 2.1 cm. Centrally there is a relatively solid mass that measures 2.0 x 1.4 x 1.2 cm. Previously measuring 1.7 x 1.7 x 1.4 cm. Suggestion of few faint microcalcifications. Summaries does demonstrate a thin hypoechoic halo. Previous imaging demonstrated a complex more cystic mass to be present measuring 3.0 x 2.0 x 2.6 cm. On followup, there is a hypoechoic area in this region which may reflect the same lesion but is smaller at 1.2 x 1.1 x 1.0 cm. LEFT LOBE: 5.3 x 1.9 x 1.6 cm. Small solid nodule is present centrally measuring 7 x 5 x 5 mm. Likely stable. Isthmus appears unremarkable. IMPRESSION: 1. Appreciated complex but predominantly cystic mass of the right lobe is likely smaller at followup. This is likely owing to interval aspiration. 2. Additional complex solid mass with microcalcifications. Centrally, superior pole is stable to perhaps minimally increased in size. 3. Continued followup ultrasound imaging is recommended repeat ultrasound imaging suggestion approximately 6 months. The possibility of neoplasm of the currently dominant right lobe mass should not be excluded at this time. (Normal gland size: 4-5 x 2 x 2 cm) Dictated by: Dictated on workstation # [id number]
== END ==
LOC: RAD 07:26
PROVIDERS: ATTEND Family Medicine
DX: E04.2 Nontoxic multinodular goiter (principal)
CPT/HCPCS: 76536

== ENCOUNTER 2019-01-09 10:12 | Outpatient (RCR) | payer BC ==
[2018-10-12 08:53] LABS: BASOPHILS % (AUTO) 0 % (0-10); EOSINOPHILS # (AUTO) 0.1 10^3/uL (0.0-0.3); EOSINOPHILS % (AUTO) 3 % (0-10); HEMATOCRIT 30 % (35-52); HEMOGLOBIN 9.9 G/DL (11.5-16.0); LYMPHOCYTES # (AUTO) 0.7 X 10^3 (1.0-4.0); LYMPHOCYTES % (AUTO) 20 % (12-44); MEAN CORPUSCULAR HEMOGLOBIN 30 PG (25-34); MEAN CORPUSCULAR HGB CONC 33 G/DL (32-36); MEAN CORPUSCULAR VOLUME 92 FL (80-99); MEAN PLATELET VOLUME 8.7 FL (7.4-10.4); MONOCYTES # (AUTO) 0.8 X 10^3 (0.0-1.0); MONOCYTES % (AUTO) 25 % (0-12); NEUTROPHILS # (AUTO) 1.7 X 10^3 (1.8-7.8); NEUTROPHILS % (AUTO) 51 % (42-75); PLATELET COUNT 179 10^3/uL (130-400); RED CELL DISTRIBUTION WIDTH 15.1 % (10.0-14.5); WHITE BLOOD COUNT 3.3 10^3/uL (4.3-11.0)
[2018-10-12 09:18] LABS: BUN/CREATININE RATIO 17; CARBON DIOXIDE 24 MMOL/L (21-32); CHLORIDE 103 MMOL/L (98-107); CREATININE SERUM 0.87 MG/DL (0.60-1.30); GFR ESTIMATED > 60; GLUCOSE 135 MG/DL (70-105); POTASSIUM 3.8 MMOL/L (3.6-5.0); SODIUM 138 MMOL/L (135-145)
[2018-10-12 09:19] LABS: ALANINE AMINOTRANSFERASE 21 U/L (0-55); ALBUMIN 4.2 GM/DL (3.2-4.5); ALKALINE PHOSPHATASE 98 U/L (40-136); BILIRUBIN,TOTAL 0.3 MG/DL (0.1-1.0); CALCIUM 9.3 MG/DL (8.5-10.1); TOTAL PROTEIN 7.1 GM/DL (6.4-8.2)
[2019-01-04 08:49] LABS: BASOPHILS % (AUTO) 0 % (0-10); EOSINOPHILS # (AUTO) 0.1 10^3/uL (0.0-0.3); EOSINOPHILS % (AUTO) 3 % (0-10); HEMATOCRIT 33 % (35-52); HEMOGLOBIN 11.2 G/DL (11.5-16.0); LYMPHOCYTES # (AUTO) 0.7 X 10^3 (1.0-4.0); LYMPHOCYTES % (AUTO) 19 % (12-44); MEAN CORPUSCULAR HEMOGLOBIN 30 PG (25-34); MEAN CORPUSCULAR HGB CONC 34 G/DL (32-36); MEAN CORPUSCULAR VOLUME 87 FL (80-99); MEAN PLATELET VOLUME 8.5 FL (7.4-10.4); MONOCYTES # (AUTO) 0.7 X 10^3 (0.0-1.0); MONOCYTES % (AUTO) 21 % (0-12); NEUTROPHILS % (AUTO) 57 % (42-75); PLATELET COUNT 168 10^3/uL (130-400); RED CELL DISTRIBUTION WIDTH 13.3 % (10.0-14.5); WHITE BLOOD COUNT 3.5 10^3/uL (4.3-11.0)
[2019-01-04 09:12] LABS: ALANINE AMINOTRANSFERASE 13 U/L (0-55); ALKALINE PHOSPHATASE 77 U/L (40-136); BILIRUBIN,TOTAL 0.3 MG/DL (0.1-1.0); BUN/CREATININE RATIO 20; CALCIUM 9.4 MG/DL (8.5-10.1); CARBON DIOXIDE 26 MMOL/L (21-32); CHLORIDE 101 MMOL/L (98-107); CREATININE SERUM 0.86 MG/DL (0.60-1.30); GFR ESTIMATED > 60; GLUCOSE 150 MG/DL (70-105); POTASSIUM 3.7 MMOL/L (3.6-5.0); SODIUM 138 MMOL/L (135-145); TOTAL PROTEIN 6.7 GM/DL (6.4-8.2)
[2019-01-11] MEDS ORDERED: MULT1CAP27 PO (15:05)
[2019-01-11] MEDS ORDERED: CETI10TA17 PO (15:05)
== END 2019-01-10 | disposition home or self-care (01) ==
LOC: ONC 10:12
PROVIDERS: ATTEND Internal Medicine Hematology & Oncology
DX: C92.10 Chronic myeloid leukemia, BCR/ABL-positive, not having achieved remission (principal); D50.9 Iron deficiency anemia, unspecified; N18.3 Chronic kidney disease, stage 3 (moderate); Z79.899 Other long term (current) drug therapy
CPT/HCPCS: 36415; 80053; 81206; 82728; 85025; 99213

== ENCOUNTER 2019-01-11 12:14 | Outpatient (CLI) | payer BC ==
[~2019-01-11] VITALS: Ht 157.5 cm; Wt 73.5 kg
[2019-01-11] MEDS ORDERED: MULT1CAP27 PO (15:05)
[2019-01-11] MEDS ORDERED: CETI10TA17 PO (15:05)
== END 2019-01-11 15:27 ==
LOC: PREOP 12:14
PROVIDERS: ATTEND Surgery
DX: Z01.818 Encounter for other preprocedural examination (principal)

== ENCOUNTER 2019-01-17 08:47 | Day surgery (SDC) | payer BC ==
[~2019-01-17] VITALS: Ht 157.5 cm; Wt 73.5 kg
[~2019-01-17 08:47] MED LIST changes: -BRIM5DRO OP; +BRIM5DRO OU; +CETI10TA17 PO; +MULT1CAP27 PO
[2019-01-17 09:00] VITALS: BP 190/108
[2019-01-17] MEDS ORDERED: ceFAZolin 2 GM IV Premixed 50 ML IV ONE (09:15)
[2019-01-17] MEDS ORDERED: BUP/EPI 0.5% 1:200,000 (SENSORCAINE) 30 ML VIAL ONE (09:15)
[2019-01-17] MEDS: LACTATED RINGERS 1,000 ML IV PRN ×2 (09:40→11:15)
[2019-01-17] MEDS ORDERED: DEXAMETHASONE 10 MG/ML (DECADRON) 1 ML VIAL ONE (09:43)
[2019-01-17] MEDS ORDERED: LIDOCAINE PF 2% 5 ML (XYLOCAINE) VIAL ONE (09:43)
[2019-01-17] MEDS ORDERED: ONDANSETRON 4 MG/2 ML (SDV) Z0FRAN ONE (09:43)
[2019-01-17] MEDS ORDERED: SUCCINYLCHOLINE INJ 100 MG/5 ML SYR ONE (09:43)
[2019-01-17] MEDS ORDERED: proPOfol 200 MG/20 ML (DIPRIVAN) VIAL IV ONE (09:43)
[2019-01-17] MEDS ORDERED: fentaNYL INJECTION 250 MCG/5 ML AMP ONE (09:44)
[2019-01-17] MEDS ORDERED: MIDAZOLAM 2 MG/2 ML (VERSED) VIAL ONE (09:44)
--- NOTE | 2019-01-17 09:46 | Progress Note-Pre Operative ---
Pre-Operative Progress Note H&P Reviewed The H&P was reviewed, patient examined and no changes noted. Date Seen by Provider: Jan 11, 2019 Time Seen by Provider: 14:00 Date H&P Reviewed: Jan 17, 2019 Time H&P Reviewed: 09:45 Pre-Operative Diagnosis: Bilateral Thyroid Nodules KEN BAER MD Jan 17, 2019 09:46
[2019-01-17 09:51] LABS: HEMOGLOBIN 12.2 G/DL (11.5-16.0); MEAN PLATELET VOLUME 9.2 FL (7.4-10.4); RED CELL DISTRIBUTION WIDTH 13.4 % (10.0-14.5)
[2019-01-17] MEDS ORDERED: LIDOCAINE JELLY 2% 6 ML SYRINGE ONE (09:52)
[2019-01-17] MEDS ORDERED: ceFAZolin 2 GM IV Premixed 50 ML ONE (10:02)
[2019-01-17] MEDS ORDERED: BUP/EPI 0.5% 1:200,000 (SENSORCAINE) 30 ML VIAL INJ ONE (12:00)
[2019-01-17] MEDS ORDERED: ACHD5005 PO (12:08)
[2019-01-17] MEDS ORDERED: GLYCOPYRROLATE 0.2 MG/ML (ROBINUL) 2 ML VIAL ONE (12:09)
[2019-01-17] MEDS ORDERED: LEVOTHYROXINE 75 MCG (LEVOTHROID) TABLET PO ONE (12:10)
[2019-01-17] MEDS ORDERED: LEVO100T7 PO (12:10)
--- NOTE | 2019-01-17 12:11 | Discharge Inst-Simple/Standard ---
Discharge Inst-Standard Discharge Medications New, Converted or Re-Newed RX: RX on Chart Patient Instructions/Follow Up Plan of Care/Instructions/FU: dressings off in a.m. Follow-up in 2 weeks Activity as Tolerated: Yes Discharge Diet: No Restrictions KEN BAER MD Jan 17, 2019 12:11
[2019-01-17] MEDS ORDERED: ONDANSETRON 4 MG/2 ML (SDV) Z0FRAN IVP PRN (12:15)
[2019-01-17] MEDS ORDERED: fentaNYL INJECTION 100 MCG/2 ML AMP IVP PRN (12:15)
[2019-01-17] MEDS ORDERED: ENALAPRILAT 2.5 MG/2 ML (VASOTEC) VIAL IV PRN (12:15)
[2019-01-17] MEDS ORDERED: SEVOFLURANE (ULTANE) 15 ML INHAL SOLN ONE (12:21)
[2019-01-17] MEDS ORDERED: MEPERIDINE (DEMEROL) INJ 50 MG/ML IVP ONE (12:30)
[2019-01-17] MEDS ORDERED: morphine INJ 10 MG/ML 1ML (SYR OR VIAL) IVP ONE (12:30)
[2019-01-17] MEDS ORDERED: morphine INJ 10 MG/ML 1ML (SYR OR VIAL) ONE (12:38)
[2019-01-17] MEDS: LABETALOL HCL 20 MG/4 ML VIAL IV PRN ×4 (12:45→13:15)
[2019-01-17] MEDS ORDERED: LABETALOL HCL 20 MG/4 ML VIAL ONE (12:45)
[2019-01-17] MEDS ORDERED: hydrALAZINE (APESOLINE) 20 MG/ML VIAL ONE (13:29)
[2019-01-17] MEDS: hydrALAZINE (APESOLINE) 20 MG/ML VIAL IV PRN ×2 (13:32→13:50)
[2019-01-17 14:10] VITALS: BP 158/82
[2019-01-17] MEDS: LACTATED RINGERS 1,000 ML IV SCH (14:58)
[2019-01-17] MEDS: ONDANSETRON 4 MG/2 ML (SDV) Z0FRAN IVP PRN ×2 (14:58→15:54)
[2019-01-17] MEDS: HYDROcodone/APAP 5 MG/325 MG (LORTAB) TAB PO PRN (15:00)
[2019-01-17 15:06] VITALS: BP 149/72
--- NOTE | 2019-01-17 15:30 | NUR ---
BAUTISTA VÁSQUEZ admitted to room 412-1, with an admitting diagnosis of thyroidectomy, on from surgery via bed , accompanied by staff and family .BAUTISTA VÁSQUEZ introduced to surroundings, call light, bed controls, phone, TV, temperature control, lights, meal times, smoking policy, visitor policy, side rail policy, bathrooms and showers. Patient Rights given to patient in the handbook. BAUTISTA VÁSQUEZ verbalizes understanding that [facility] is not responsible for the loss or damage to any personal effects or valuables that are kept in the patients posession during their hospitalization. The following Patient Care Plans and discharge plans were discussed with the patient. BAUTISTA VÁSQUEZ verbalizes understanding of Interdisciplinary Patient Education.
[2019-01-17 15:56] VITALS: BP 157/82
--- NOTE | 2019-01-17 16:10 | OPERATIVE REPORT ---
DATE OF SERVICE: 01/17/2019 PREOPERATIVE DIAGNOSIS: Bilateral thyroid nodules. POSTOPERATIVE DIAGNOSIS: Bilateral thyroid nodules. OPERATIONS PERFORMED: 1. Total thyroidectomy. 2. Intraoperative nerve monitoring (recurrent laryngeal nerve). SURGEON: Ken Baer MD. ANESTHESIA: General anesthesia. BLOOD LOSS: 25 mL. TYPE OF WOUND: Type 1 (clean wound). INDICATION FOR PROCEDURE: This lady had been found to have bilateral, large thyroid nodules with compressive symptoms. Despite benign cytology, due to symptoms of compression, it was felt reasonable to proceed with total thyroidectomy. Informed consent was obtained after reviewing the operative details and complications of hematoma, postoperative hypocalcemia and transient hoarseness of voice. DESCRIPTION OF PROCEDURE: She was placed supine on the operating table and general anesthesia induced. Two grams of Ancef were administered intravenously as prophylaxis against wound infection. Sequential compression devices were placed around her legs to minimize the risk of venous thrombosis. Her neck and upper chest were prepared and draped in the usual sterile manner. Preemptive analgesia was established using 0.5% Marcaine with epinephrine. A 3.5 cm transverse incision was made along the skin crease of the neck and platysma incised transversely. Cervical fascia was incised vertically and the strap muscles were retracted laterally. I began the dissection on the left side. The thyroid lobe was retracted medially, displaying a small middle thyroid vein. It was controlled using the Harmonic scalpel. Superior thyroid artery was controlled between #0 silk sutures, reinforced with a Ligaclip. Recurrent laryngeal nerve was identified coursing between branches of the inferior thyroid artery and carefully protected using constant visual inspection and intermittent nerve stimulation technique. Branches of the inferior thyroid artery were controlled using a combination of Ligaclips and minimal use of Harmonic scalpel. Both parathyroid glands were identified and preserved along with their blood supply. The isthmus was then transected using Harmonic scalpel and the left lobe sent separately for histological examination. A similar dissection was performed on the right side. The recurrent laryngeal nerve was found in its conventional position and protected throughout, using constant visual inspection and intermittent nerve stimulation technique. Both parathyroids were preserved as well. We had the TICKET MARKER conduct Valsalva maneuver, looking for any venous bleeding. There was not any. Thrombin solution was placed along the tracheoesophageal groove to optimize hemostasis. Her neck was then flexed, in preparation for closure. Cervical fascia was approximated using 3-0 Vicryl and platysma using the same material. Skin was closed using 4-0 Vicryl, in a subcuticular fashion. She tolerated the procedure well, was extubated in the operating room and taken to the recovery room in a stable condition. Job ID: [id number] DocumentID: [id number] Dictated Date: 01/17/2019 12:00:54 [employer]olded Candles Date: 01/17/2019 16:09:31 Dictated By: KEN BAER MD MTDD
[2019-01-17] MEDS ORDERED: PATIENT MAY USE OWN MEDS, ALL MC SCH (16:45)
[2019-01-17] MEDS ORDERED: KETOTIFEN FUMARATE OP SCH (16:45)
[2019-01-17] MEDS ORDERED: hydrALAZINE (APESOLINE) 20 MG/ML VIAL IV PRN (19:15)
[2019-01-17] MEDS ORDERED: SCOPOLAMINE 1.5 MG (TRANSDERM-SCOP) PATCH TD NR (19:30)
[2019-01-17] MEDS ORDERED: METOCLOPRAMIDE INJ 10 MG/2 ML (REGLAN) IVP PRN (19:30)
[2019-01-17 20:21] VITALS: BP 154/94
[2019-01-17] MEDS ORDERED: TIMOLOL OU SCH (21:00)
[2019-01-17] MEDS ORDERED: [UNRECOGNIZED DRUG - OTHER] OU SCH (21:00)
[2019-01-17] MEDS ORDERED: BRIMONIDINE TARTRATE OU SCH (21:00)
[2019-01-17] MEDS ORDERED: LATANOPROST 0.005% (XALATAN) OPHTH SOLN 2.5 ML OS SCH (21:00)
[2019-01-17] MEDS ORDERED: SIMvastatin 10 MG (ZOCOR) TAB PO SCH (21:00)
[2019-01-18 00:20] VITALS: BP 149/76
[2019-01-18] MEDS: LACTATED RINGERS 1,000 ML IV SCH ×2 (00:28→09:12)
[2019-01-18] MEDS: HYDROcodone/APAP 5 MG/325 MG (LORTAB) TAB PO PRN (01:05)
[2019-01-18 04:00] VITALS: BP 129/79
[2019-01-18 04:48] LABS: BUN/CREATININE RATIO 20; CALCIUM 8.1 MG/DL (8.5-10.1); CARBON DIOXIDE 25 MMOL/L (21-32); CHLORIDE 100 MMOL/L (98-107); GFR ESTIMATED > 60; GLUCOSE 122 MG/DL (70-105); POTASSIUM 3.6 MMOL/L (3.6-5.0); SODIUM 136 MMOL/L (135-145)
[2019-01-18] MEDS ORDERED: LEVOTHYROXINE 100 MCG (LEVOTHROID) TAB PO SCH (06:30)
--- NOTE | 2019-01-18 07:45 | Anesthesia-General Post-Op ---
General Patient Condition Mental Status/LOC: Same as Preop Cardiovascular: Satisfactory Nausea/Vomiting: Absent Respiratory: Satisfactory Pain: Controlled Complications: Absent Post Op Complications Complications None Follow Up Care/Instructions Patient Instructions None needed. Anesthesia/Patient Condition Patient Condition Patient is doing well, no complaints, stable vital signs, no apparent adverse anesthesia problems. No complications reported per nursing. LEOPOLDO HUMMEL CRNA Jan 18, 2019 07:45
[2019-01-18 08:00] VITALS: BP 146/80
[2019-01-18] MEDS ORDERED: LORATADINE (CLARITIN) 10 MG TAB PO SCH (09:00)
[2019-01-18] MEDS ORDERED: ENALAPRIL MALEATE 20 MG PO SCH (09:00)
[2019-01-18] MEDS ORDERED: HYDROCHLOROTHIAZIDE 25 MG (HCTZ) TAB PO SCH (09:00)
[2019-01-18] MEDS ORDERED: CALCIUM CARBONATE 500 MG (TUMS) TAB.CHEW PO SCH (09:00)
[2019-01-18] MEDS ORDERED: DASATINIB 70 MG PO SCH (09:00)
--- NOTE | 2019-01-18 09:23 | Progress Note-Standard ---
Standard Progress Note Progress Notes/Assess & Plan Date Seen by a Provider: Jan 18, 2019 Time Seen by a Provider: 09:00 Progress/Assessment & Plan uneventful postoperative night. When control adequate. Vocal cord function normal. Calcium 8.1 with no symptoms. Incision dry. Could be discharged home Final Diagnosis bilateral thyroid nodules KEN BAER MD Jan 18, 2019 09:23
[2019-01-20] MEDS ORDERED: SCOPOLAMINE PATCH REMOVAL TP SCH (19:30)
== END 2019-01-18 10:21 | disposition home or self-care (01) ==
LOC: SDC 08:47 → 4TH 14:38 → SDC 01-18 10:21
PROVIDERS: ATTEND Surgery
DX: E04.1 Nontoxic single thyroid nodule (principal); Z11.2 Encounter for screening for other bacterial diseases; Z80.0 Family history of malignant neoplasm of digestive organs; I12.9 Hypertensive chronic kidney disease with stage 1 through stage 4 chronic kidney disease, or unspecified chronic kidney disease; E78.5 Hyperlipidemia, unspecified; C92.10 Chronic myeloid leukemia, BCR/ABL-positive, not having achieved remission; D50.0 Iron deficiency anemia secondary to blood loss (chronic); N18.9 Chronic kidney disease, unspecified; E78.00 Pure hypercholesterolemia, unspecified; Z79.899 Other long term (current) drug therapy; Z88.2 Allergy status to sulfonamides
CPT/HCPCS: 36415; 80048; 85027; 87081; 88307

== ENCOUNTER → 2019-02-20 | Outpatient (CLI) | payer BC ==
[~2019-02-20] MED LIST changes: +ACHD5005 PO; +LEVO100T7 PO
--- NOTE | 2019-02-21 11:15 | Diagnostic Imaging Report ---
EXAMINATION: Digital mammogram bilateral screening with 3D tomosynthesis. INDICATION: Screening. This study was compared to the prior exam of 01/25/2018, 01/21/17 and 12/18/2015. At this time there are no current complaints. The current study was also evaluated with a Computer Aided Detection (CAD) system. FINDINGS: There are scattered fibroglandular densities in both breasts which could obscure a lesion. Overall, there does not appear to have been any significant change when compared to the prior exam. No primary or secondary sign of malignancy is noted. IMPRESSION: There is no radiographic evidence for malignancy. ACR BI-RADS Category 1: Negative. Result letter will be mailed to the patient. Note: At least 10% of breast cancer is not imaged by mammography. Dictated by: Dictated on workstation # [id number]
== END ==
LOC: RAD 08:59
PROVIDERS: ATTEND Family Medicine
DX: Z12.31 Encounter for screening mammogram for malignant neoplasm of breast (principal)
CPT/HCPCS: 77067

== ENCOUNTER → 2019-03-01 | Outpatient (CLI) | payer BC | LOC: LAB 11:11 | PROVIDERS: ATTEND Surgery | DX: Z09 Encounter for follow-up examination after completed treatment for conditions other than malignant neoplasm (principal); Z98.890 Other specified postprocedural states | CPT/HCPCS: 36415; 84436; 84443 ==

== ENCOUNTER 2019-05-10 09:22 | Outpatient (RCR) | payer BC ==
[2019-02-15 09:05] LABS: BASOPHILS % (AUTO) 0 % (0-10); EOSINOPHILS # (AUTO) 0.1 10^3/uL (0.0-0.3); EOSINOPHILS % (AUTO) 4 % (0-10); HEMATOCRIT 33 % (35-52); HEMOGLOBIN 10.9 G/DL (11.5-16.0); LYMPHOCYTES # (AUTO) 0.8 X 10^3 (1.0-4.0); LYMPHOCYTES % (AUTO) 21 % (12-44); MEAN CORPUSCULAR HEMOGLOBIN 29 PG (25-34); MEAN CORPUSCULAR HGB CONC 33 G/DL (32-36); MEAN CORPUSCULAR VOLUME 88 FL (80-99); MEAN PLATELET VOLUME 9.3 FL (7.4-10.4); MONOCYTES # (AUTO) 0.7 X 10^3 (0.0-1.0); MONOCYTES % (AUTO) 18 % (0-12); NEUTROPHILS # (AUTO) 2.1 X 10^3 (1.8-7.8); NEUTROPHILS % (AUTO) 57 % (42-75); PLATELET COUNT 191 10^3/uL (130-400); RED CELL DISTRIBUTION WIDTH 14.2 % (10.0-14.5); WHITE BLOOD COUNT 3.7 10^3/uL (4.3-11.0)
[2019-02-15 09:22] LABS: ALANINE AMINOTRANSFERASE 19 U/L (0-55); ALBUMIN 4.3 GM/DL (3.2-4.5); ALKALINE PHOSPHATASE 98 U/L (40-136); BILIRUBIN,TOTAL 0.3 MG/DL (0.1-1.0); BUN/CREATININE RATIO 15; CALCIUM 9.5 MG/DL (8.5-10.1); CARBON DIOXIDE 24 MMOL/L (21-32); CHLORIDE 102 MMOL/L (98-107); CREATININE SERUM 0.87 MG/DL (0.60-1.30); GFR ESTIMATED > 60; GLUCOSE 121 MG/DL (70-105); SODIUM 136 MMOL/L (135-145); TOTAL PROTEIN 7.2 GM/DL (6.4-8.2)
[2019-04-26 09:05] LABS: BASOPHILS % (AUTO) 0 % (0-10); EOSINOPHILS # (AUTO) 0.1 10^3/uL (0.0-0.3); EOSINOPHILS % (AUTO) 3 % (0-10); HEMATOCRIT 31 % (35-52); HEMOGLOBIN 10.5 G/DL (11.5-16.0); LYMPHOCYTES # (AUTO) 0.8 X 10^3 (1.0-4.0); LYMPHOCYTES % (AUTO) 25 % (12-44); MEAN CORPUSCULAR HEMOGLOBIN 30 PG (25-34); MEAN CORPUSCULAR HGB CONC 34 G/DL (32-36); MEAN CORPUSCULAR VOLUME 89 FL (80-99); MEAN PLATELET VOLUME 9.1 FL (7.4-10.4); MONOCYTES # (AUTO) 0.7 X 10^3 (0.0-1.0); MONOCYTES % (AUTO) 20 % (0-12); NEUTROPHILS # (AUTO) 1.7 X 10^3 (1.8-7.8); NEUTROPHILS % (AUTO) 51 % (42-75); PLATELET COUNT 176 10^3/uL (130-400); RED CELL DISTRIBUTION WIDTH 14.6 % (10.0-14.5); WHITE BLOOD COUNT 3.3 10^3/uL (4.3-11.0)
[2019-04-26 09:27] LABS: ALANINE AMINOTRANSFERASE 17 U/L (0-55); ALBUMIN 4.3 GM/DL (3.2-4.5); ALKALINE PHOSPHATASE 81 U/L (40-136); BILIRUBIN,TOTAL 0.4 MG/DL (0.1-1.0); BUN/CREATININE RATIO 12; CALCIUM 8.9 MG/DL (8.5-10.1); CARBON DIOXIDE 27 MMOL/L (21-32); CHLORIDE 99 MMOL/L (98-107); CREATININE SERUM 0.93 MG/DL (0.60-1.30); GFR ESTIMATED > 60; GLUCOSE 122 MG/DL (70-105); POTASSIUM 3.8 MMOL/L (3.6-5.0); SODIUM 135 MMOL/L (135-145); TOTAL PROTEIN 6.7 GM/DL (6.4-8.2)
== END 2019-05-16 | disposition home or self-care (01) ==
LOC: ONC 09:22
PROVIDERS: ATTEND Internal Medicine Hematology & Oncology
DX: C92.10 Chronic myeloid leukemia, BCR/ABL-positive, not having achieved remission (principal); D50.9 Iron deficiency anemia, unspecified; N18.3 Chronic kidney disease, stage 3 (moderate); Z79.899 Other long term (current) drug therapy
CPT/HCPCS: 36415; 80053; 81206; 85025; 99213

== ENCOUNTER → 2019-09-27 | Outpatient (CLI) | payer BC ==
--- NOTE | 2019-09-27 15:57 | Diagnostic Imaging Report ---
EXAMINATION: Lumbar spine at 03:16 p.m. INDICATION: Back pain. FINDINGS: AP, lateral, and spot lateral views were obtained. There are no prior studies available for comparison. The lateral view shows the vertebral body heights and alignment to be generally within normal limits. There is narrowing of the disc space at L5-S1 and to a lesser degree at L3-L4. There is no fracture or acute bony abnormality appreciated. On the AP view, there is a 6.0 x 9.7 cm area of increased density in the soft tissues just superior to the left iliac crest. This finding may have been present on the prior abdomen exam of 03/11/2018 although it is better visualized on this study. The patient does have an ostomy site in this area and this could account for this density. IMPRESSION: 1. There is no evidence for an acute bony abnormality. 2. There is degenerative disc disease at L5-S1 and to a lesser degree at L3-L4. If there is clinical concern regarding spinal stenosis or nerve root encroachment, then MRI would be recommended for additional study. Dictated by: Dictated on workstation # [id number]
== END ==
LOC: RAD 14:56
PROVIDERS: ATTEND Family Medicine
DX: M51.37 Other intervertebral disc degeneration, lumbosacral region (principal)
CPT/HCPCS: 72100

== ENCOUNTER 2019-10-16 08:35 | Outpatient (RCR) | payer BC ==
[2019-07-19 09:03] LABS: BASOPHILS % (AUTO) 0 % (0-10); EOSINOPHILS # (AUTO) 0.1 10^3/uL (0.0-0.3); EOSINOPHILS % (AUTO) 2 % (0-10); HEMATOCRIT 31 % (35-52); HEMOGLOBIN 10.3 G/DL (11.5-16.0); LYMPHOCYTES # (AUTO) 0.7 X 10^3 (1.0-4.0); LYMPHOCYTES % (AUTO) 23 % (12-44); MEAN CORPUSCULAR HEMOGLOBIN 31 PG (25-34); MEAN CORPUSCULAR HGB CONC 33 G/DL (32-36); MEAN CORPUSCULAR VOLUME 93 FL (80-99); MONOCYTES # (AUTO) 0.7 X 10^3 (0.0-1.0); MONOCYTES % (AUTO) 23 % (0-12); NEUTROPHILS # (AUTO) 1.5 X 10^3 (1.8-7.8); NEUTROPHILS % (AUTO) 51 % (42-75); PLATELET COUNT 182 10^3/uL (130-400); RED CELL DISTRIBUTION WIDTH 13.9 % (10.0-14.5); WHITE BLOOD COUNT 2.9 10^3/uL (4.3-11.0)
[2019-07-19 09:22] LABS: ALBUMIN 4.3 GM/DL (3.2-4.5); BILIRUBIN,TOTAL 0.4 MG/DL (0.1-1.0); CALCIUM 8.8 MG/DL (8.5-10.1); CREATININE SERUM 0.95 MG/DL (0.60-1.30); POTASSIUM 3.7 MMOL/L (3.6-5.0); TOTAL PROTEIN 7.1 GM/DL (6.4-8.2)
[2019-10-16 09:14] LABS: BASOPHILS % (AUTO) 0 % (0-10); EOSINOPHILS % (AUTO) 1 % (0-10); HEMATOCRIT 32 % (35-52); HEMOGLOBIN 10.7 G/DL (11.5-16.0); LYMPHOCYTES # (AUTO) 0.8 X 10^3 (1.0-4.0); LYMPHOCYTES % (AUTO) 18 % (12-44); MEAN CORPUSCULAR HEMOGLOBIN 30 PG (25-34); MEAN CORPUSCULAR HGB CONC 33 G/DL (32-36); MEAN CORPUSCULAR VOLUME 89 FL (80-99); MEAN PLATELET VOLUME 8.7 FL (7.4-10.4); MONOCYTES # (AUTO) 0.7 X 10^3 (0.0-1.0); MONOCYTES % (AUTO) 15 % (0-12); NEUTROPHILS % (AUTO) 66 % (42-75); PLATELET COUNT 195 10^3/uL (130-400); RED CELL DISTRIBUTION WIDTH 13.8 % (10.0-14.5); WHITE BLOOD COUNT 4.5 10^3/uL (4.3-11.0)
[2019-10-16 09:46] LABS: ALANINE AMINOTRANSFERASE 30 U/L (0-55); ALBUMIN 4.5 GM/DL (3.2-4.5); ALKALINE PHOSPHATASE 118 U/L (40-136); BILIRUBIN,TOTAL 0.4 MG/DL (0.1-1.0); BUN/CREATININE RATIO 15; CALCIUM 9.1 MG/DL (8.5-10.1); CARBON DIOXIDE 25 MMOL/L (21-32); CHLORIDE 93 MMOL/L (98-107); CREATININE SERUM 0.85 MG/DL (0.60-1.30); GFR ESTIMATED > 60; GLUCOSE 105 MG/DL (70-105); POTASSIUM 3.8 MMOL/L (3.6-5.0); SODIUM 130 MMOL/L (135-145); TOTAL PROTEIN 7.4 GM/DL (6.4-8.2)
== END 2019-10-17 | disposition home or self-care (01) ==
LOC: ONC 08:35
PROVIDERS: ATTEND Internal Medicine Hematology & Oncology
DX: C92.10 Chronic myeloid leukemia, BCR/ABL-positive, not having achieved remission (principal); D50.9 Iron deficiency anemia, unspecified; N18.3 Chronic kidney disease, stage 3 (moderate); Z79.899 Other long term (current) drug therapy
CPT/HCPCS: 36415; 80053; 81206; 82728; 85025; 99213

== ENCOUNTER → 2019-10-17 | Outpatient (CLI) | payer BC ==
--- NOTE | 2019-10-17 14:11 | Diagnostic Imaging Report ---
PROCEDURE: MRI lumbar spine. INDICATION: Low back pain with no known injury. TECHNIQUE: Multiplanar and multisequence noncontrast magnetic resonance imaging was performed of the lumbar spine. CORRELATION STUDY: Radiographs 09/27/2019. FINDINGS: Trace retrolisthesis of L1 on L2. Trace anterolisthesis of L5 on S1. Alignment is otherwise relatively anatomic. Lumbar vertebral body heights are maintained. Slight intervertebral disc herniation inferior T11 vertebral body. No surrounding edema. No concerning geographic lesion. The conus appears unremarkable. L5-S1: Moderate loss of disc space height. Broad-based disc bulge is present. Asymmetric disc into the right foramen with flattening of the exiting right L5 nerve root. Left foramen is better preserved. No significant canal narrowing. L4-L5: Slight loss of disc space height. Broad-based disc bulge is noted. Disc osteophyte formation results in left foraminal narrowing with some abutment of the exiting nerve root. Right neural foramen is better preserved. Spinal canal is maintained. L3-L4: Moderate loss of disc space height. Disc osteophyte does result in mild encroachment upon neural foramina. No definitive nerve impingement. Spinal canal without significant stenosis. L2-L3: Fairly good preservation of the disc space height and signal intensity. No significant canal or foraminal narrowing. L1-L2: Slight loss of disc space height. Very mild broad-based disc bulge. No significant canal or foraminal stenosis. The visualized portions of the abdominal aorta and kidneys are negative. No pathologically enlarged central retroperitoneal lymph nodes. IMPRESSION: 1. Multilevel lumbar spondylosis with various degrees of foraminal narrowing. Neural foraminal stenosis is most severe on the right at L5-S1 and left L4-L5 level. At these areas, there is some abutment and contour deformity about the exiting nerve roots. Dictated by: Dictated on workstation # [id number]
== END ==
LOC: RAD 10-08 09:00
PROVIDERS: ATTEND Family Medicine
DX: M47.896 Other spondylosis, lumbar region (principal); M48.07 Spinal stenosis, lumbosacral region
CPT/HCPCS: 72148

== ENCOUNTER 2019-12-14 10:40 | Outpatient (RCR) | payer BC ==
[~2019-12-14 10:40] MED LIST changes: +SIMV10TA26 PO
== END 2020-01-21 | disposition home or self-care (01) ==
PROVIDERS: ATTEND Family Medicine
DX: M54.16 Radiculopathy, lumbar region (principal); I10 Essential (primary) hypertension; Z90.710 Acquired absence of both cervix and uterus; Z98.890 Other specified postprocedural states; Z90.89 Acquired absence of other organs; Z85.828 Personal history of other malignant neoplasm of skin

== ENCOUNTER 2020-01-24 10:21 | Outpatient (RCR) | payer BC ==
[2020-01-10 09:14] LABS: BASOPHILS % (AUTO) 0 % (0-10); EOSINOPHILS # (AUTO) 0.1 10^3/uL (0.0-0.3); EOSINOPHILS % (AUTO) 3 % (0-10); HEMATOCRIT 30 % (35-52); HEMOGLOBIN 10.1 G/DL (11.5-16.0); LYMPHOCYTES # (AUTO) 0.7 X 10^3 (1.0-4.0); LYMPHOCYTES % (AUTO) 22 % (12-44); MEAN CORPUSCULAR HEMOGLOBIN 31 PG (25-34); MEAN CORPUSCULAR HGB CONC 33 G/DL (32-36); MEAN CORPUSCULAR VOLUME 92 FL (80-99); MEAN PLATELET VOLUME 8.8 FL (7.4-10.4); MONOCYTES # (AUTO) 0.7 X 10^3 (0.0-1.0); MONOCYTES % (AUTO) 23 % (0-12); NEUTROPHILS # (AUTO) 1.5 X 10^3 (1.8-7.8); NEUTROPHILS % (AUTO) 52 % (42-75); PLATELET COUNT 166 10^3/uL (130-400); RED CELL DISTRIBUTION WIDTH 14.7 % (10.0-14.5)
[2020-01-10 09:30] LABS: ALBUMIN 4.3 GM/DL (3.2-4.5); BILIRUBIN,TOTAL 0.3 MG/DL (0.1-1.0); CALCIUM 8.9 MG/DL (8.5-10.1); CREATININE SERUM 0.94 MG/DL (0.60-1.30); POTASSIUM 3.7 MMOL/L (3.6-5.0); TOTAL PROTEIN 7.1 GM/DL (6.4-8.2)
== END 2020-01-28 | disposition home or self-care (01) ==
LOC: ONC 10:21
PROVIDERS: ATTEND Internal Medicine Hematology & Oncology
DX: C92.11 Chronic myeloid leukemia, BCR/ABL-positive, in remission (principal); D50.0 Iron deficiency anemia secondary to blood loss (chronic); N18.3 Chronic kidney disease, stage 3 (moderate); Z79.899 Other long term (current) drug therapy; Z98.890 Other specified postprocedural states
CPT/HCPCS: 80053; 82728; 85025; 88377; 99213

== ENCOUNTER 2020-04-24 09:23 | Outpatient (RCR) | payer BC ==
[2020-04-09 09:24] LABS: BASOPHILS % (AUTO) 0 % (0-10); EOSINOPHILS # (AUTO) 0.1 10^3/uL (0.0-0.3); EOSINOPHILS % (AUTO) 2 % (0-10); HEMATOCRIT 30 % (35-52); HEMOGLOBIN 10.1 G/DL (11.5-16.0); LYMPHOCYTES # (AUTO) 0.9 X 10^3 (1.0-4.0); LYMPHOCYTES % (AUTO) 27 % (12-44); MEAN CORPUSCULAR HEMOGLOBIN 30 PG (25-34); MEAN CORPUSCULAR HGB CONC 33 G/DL (32-36); MEAN CORPUSCULAR VOLUME 90 FL (80-99); MEAN PLATELET VOLUME 8.5 FL (7.4-10.4); MONOCYTES # (AUTO) 0.7 X 10^3 (0.0-1.0); MONOCYTES % (AUTO) 21 % (0-12); NEUTROPHILS # (AUTO) 1.6 X 10^3 (1.8-7.8); NEUTROPHILS % (AUTO) 50 % (42-75); PLATELET COUNT 177 10^3/uL (130-400); RED CELL DISTRIBUTION WIDTH 14.7 % (10.0-14.5); WHITE BLOOD COUNT 3.2 10^3/uL (4.3-11.0)
[2020-04-09 09:43] LABS: ALANINE AMINOTRANSFERASE 16 U/L (0-55); ALBUMIN 4.2 GM/DL (3.2-4.5); ALKALINE PHOSPHATASE 87 U/L (40-136); BILIRUBIN,TOTAL 0.4 MG/DL (0.1-1.0); BUN/CREATININE RATIO 12; CALCIUM 8.7 MG/DL (8.5-10.1); CARBON DIOXIDE 24 MMOL/L (21-32); CHLORIDE 97 MMOL/L (98-107); CREATININE SERUM 0.85 MG/DL (0.60-1.30); GFR ESTIMATED > 60; GLUCOSE 112 MG/DL (70-105); POTASSIUM 3.6 MMOL/L (3.6-5.0); SODIUM 132 MMOL/L (135-145); TOTAL PROTEIN 7.2 GM/DL (6.4-8.2)
[2020-06-28] MEDS ORDERED: MTP25TSR PO (17:29)
[2020-06-28] MEDS ORDERED: FERR240T5 PO (17:29)
[2020-06-30] MEDS ORDERED: IBUP-30 PO (10:48)
[2020-06-30] MEDS ORDERED: FOLIC ACID PO (10:48)
[2020-06-30] MEDS ORDERED: MULT-1067 PO (10:48)
[2020-06-30] MEDS ORDERED: CALC-823 PO (10:48)
[2020-06-30] MEDS ORDERED: ACET-2267 PO (10:48)
[2020-06-30] MEDS ORDERED: KETO10DR5 OU (10:48)
[2020-06-30] MEDS ORDERED: LATA2.5D5 OU (10:48)
[2020-06-30] MEDS ORDERED: LEVO100T7 PO (10:48)
[2020-06-30] MEDS ORDERED: CEPH500T PO (15:09)
== END 2020-07-08 | disposition home or self-care (01) ==
LOC: ONC 09:23
PROVIDERS: ATTEND Internal Medicine Hematology & Oncology
DX: C92.11 Chronic myeloid leukemia, BCR/ABL-positive, in remission (principal); D50.0 Iron deficiency anemia secondary to blood loss (chronic); N18.3 Chronic kidney disease, stage 3 (moderate); Z79.899 Other long term (current) drug therapy; Z98.890 Other specified postprocedural states
CPT/HCPCS: 80053; 81206; 82728; 85025; 99213

== ENCOUNTER → 2020-05-06 | Outpatient (CLI) | payer BC ==
--- NOTE | 2020-05-07 10:01 | Diagnostic Imaging Report ---
INDICATION: Routine screening. Comparison is made with prior mammogram from 02/20/2019 and 01/25/2018. 2-D and 3-D bilateral screening mammography was performed with CAD. Both breasts are heterogeneously dense, limiting the sensitivity of mammography. There are scattered benign calcifications in both breasts. No mass or malignant appearing microcalcifications are seen. Axillae are unremarkable. IMPRESSION: BI-RADS Category 2 No mammographic features suspicious for malignancy are identified. ACR BI-RADS Category 2: Benign findings. Result letter will be mailed to the patient. Note: At least 10% of breast cancer is not imaged by mammography. Dictated by: Dictated on workstation # [id number]
== END ==
LOC: RAD 13:51
PROVIDERS: ATTEND Family Medicine
DX: Z12.31 Encounter for screening mammogram for malignant neoplasm of breast (principal)
CPT/HCPCS: 77063; 77067

== ENCOUNTER 2020-06-27 20:50 | Inpatient (IN) | payer BC ==
[~2020-06-27] VITALS: Ht 157.4 cm; Wt 74.9 kg
[2020-06-27 22:56] LABS: BASOPHILS % (AUTO) 0 % (0-10); EOSINOPHILS % (AUTO) 0 % (0-10); HEMATOCRIT 29 % (35-52); HEMOGLOBIN 9.9 G/DL (11.5-16.0); LYMPHOCYTES # (AUTO) 1.4 X 10^3 (1.0-4.0); LYMPHOCYTES % (AUTO) 10 % (12-44); MEAN CORPUSCULAR HEMOGLOBIN 31 PG (25-34); MEAN CORPUSCULAR HGB CONC 34 G/DL (32-36); MEAN CORPUSCULAR VOLUME 90 FL (80-99); MEAN PLATELET VOLUME 8.5 FL (7.4-10.4); MONOCYTES # (AUTO) 1.4 X 10^3 (0.0-1.0); MONOCYTES % (AUTO) 10 % (0-12); NEUTROPHILS # (AUTO) 11.4 X 10^3 (1.8-7.8); NEUTROPHILS % (AUTO) 80 % (42-75); PLATELET COUNT 148 10^3/uL (130-400); RED CELL DISTRIBUTION WIDTH 14.9 % (10.0-14.5); WHITE BLOOD COUNT 14.2 10^3/uL (4.3-11.0)
[2020-06-27 23:05] LABS: ALBUMIN 4.4 GM/DL (3.2-4.5); POTASSIUM 3.6 MMOL/L (3.6-5.0)
[2020-06-27 23:07] LABS: CALCIUM 9.1 MG/DL (8.5-10.1)
[2020-06-27 23:08] LABS: TOTAL PROTEIN 7.8 GM/DL (6.4-8.2)
[2020-06-27 23:10] LABS: BILIRUBIN,TOTAL 0.5 MG/DL (0.1-1.0); LYMPHOCYTES % (MANUAL) 9 %; MONOCYTES % (MANUAL) 6 %; NEUTROPHILS % (MANUAL) 85 %; RBC MORPH NORMAL
[2020-06-27 23:12] LABS: CREATININE SERUM 1.09 MG/DL (0.60-1.30)
[2020-06-27 23:34] LABS: TSH (THYROID ANALYZER) 0.89 UIU/ML (0.35-4.94)
[2020-06-28 00:28] LABS: PROTHROMBIN TIME PATIENT 13.6 SEC (12.2-14.7)
[2020-06-28 01:51] LABS: BILIRUBIN,URINE NEGATIVE (NEGATIVE); CLARITY,URINE CLEAR; COLOR,URINE YELLOW; GLUCOSE, URINE (UA) NEGATIVE (NEGATIVE); KETONES,URINE NEGATIVE (NEGATIVE); LEUKOCYTE ESTERASE ,URINE NEGATIVE (NEGATIVE); NITRITE,URINE NEGATIVE (NEGATIVE); PROTEIN,URINE NEGATIVE (NEGATIVE)
[2020-06-28 02:04] LABS: BACTERIA,URINE NEGATIVE /HPF; RBC,URINE 0-2 /HPF; WBC,URINE 0-2 /HPF
[2020-06-28] MEDS ORDERED: CEFEPIME INJECTION 2,000 MG in WATER (STERILE) FOR INJECTION 20 ML IV ONE (03:15)
--- NOTE | 2020-06-28 03:42 | ED General ---
General Chief Complaint: Fever-Adult/Adol Stated Complaint: FEVER / RASH Source of Information: Patient Exam Limitations: No Limitations History of Present Illness Date Seen by Provider: Jun 27, 2020 Time Seen by Provider: 22:37 Initial Comments This 64 old woman presents to the emergency room with low-grade fever of 100.8 and chills. Chest has a petechial rash on the left hip area. She does not recall any injury there. Patient has history of CML and is presently treated with oral medications. She has had some intermittent throat irritation which she attributes to allergies. She denies any cough, shortness of air, changes in taste or smell, or urine symptoms. Allergies and Home Medications Allergies Coded Allergies: Sulfa (Sulfonamide Antibiotics) (Verified Allergy, Mild, HIVES, 01/11/19) famotidine (Verified Allergy, Mild, N/V, 01/11/19) Home Medications Brimonidine Tartrate/Timolol 5 Ml Drops, 5 ML OU BID, (Reported) Calcium Carbonate 500 Mg Tablet, 500 MG PO DAILY, (Reported) Cetirizine HCl 10 Mg Tablet, 10 MG PO DAILY, (Reported) Dasatinib 70 Mg Tablet, 70 MG PO DAILY, (Reported) Enalapril Maleate 20 Mg Tablet, 20 MG PO DAILY, (Reported) Ferrous Gluconate 270 Mg Tablet, 270 MG PO BID, (Reported) Folic Acid 1 Mg Tablet, 1 MG PO DAILY, (Reported) Hydrochlorothiazide 25 Mg Tablet, 25 MG PO DAILY, (Reported) Hydrocodone Bit/Acetaminophen 1 Tab Tab, 1 TAB PO Q6H PRN for PAIN-MODERATE Prescribed by: KEN BAER on 01/17/19 1208 Ketotifen Fumarate 10 Ml Drops, 10 ML OP PRN, (Reported) Latanoprost/Pf 7.5 Ml Drops, 7.5 ML OS HS, (Reported) Levothyroxine Sodium 100 Mcg Tablet, 100 MCG PO DAILY Prescribed by: KEN BAER on 01/17/19 1210 Multivitamin 1 Each Capsule, 1 EACH PO DAILY, (Reported) Simvastatin 10 Mg Tablet, 10 MG PO DAILY, (Reported) Patient Home Medication List Home Medication List Reviewed: Yes Review of Systems Review of Systems Constitutional: see HPI EENTM: see HPI Respiratory: no symptoms reported Cardiovascular: no symptoms reported Gastrointestinal: no symptoms reported Genitourinary: no symptoms reported : No Musculoskeletal: no symptoms reported Skin: see HPI Psychiatric/Neurological: No Symptoms Reported Hematologic/Lymphatic: No Symptoms Reported Immunological/Allergic: no symptoms reported Past Twepuib-Kkujpf-Lzvhyu Hx Past Med/Social Hx: Reviewed Nursing Past Med/Soc Hx Patient Social History 2nd Hand Smoke Exposure: No Recent Hopitalizations: No Immunizations Up To Date Tetanus Booster (TDap): More than 5yrs PED Vaccines UTD: No Date of Pneumonia Vaccine: Aug 14, 2012 Date of Influenza Vaccine: Aug 28, 2018 Seasonal Allergies Seasonal Allergies: Yes Past Medical History Surgeries: Yes (colostomy, CATARACT) Bowel Surgery, Hysterectomy Respiratory: No Cardiac: Yes High Cholesterol, Hypertension Neurological: No Reproductive Disorders: No 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 Sexually Transmitted Disease: No HIV/AIDS: No Genitourinary: No Gastrointestinal: Yes (COLECTOMY-FROM OBSTRUCTION, COLOSTOMY) Obstructive Bowel, Chronic Diarrhea Musculoskeletal: No Endocrine: Yes (THYROID NODULES) HEENT: Yes (GLASSES) 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 0.0oz. 73.409264bm; 29.6 BMI Method:Stated General Appearance: No Apparent Distress, WD/WN HEENT: PERRL/EOMI, Normal ENT Inspection, Pharynx Normal Neck: Normal Inspection Respiratory: Lungs Clear, Normal Breath Sounds, No Accessory Muscle Use Cardiovascular: Regular Rate, Rhythm, No Edema, No Murmur, Normal Peripheral Pulses Gastrointestinal: Normal Bowel Sounds, Non Tender, Soft Extremity: Normal Inspection, No Pedal Edema Neurologic/Psychiatric: Alert, Oriented x3, No Motor/Sensory Deficits, Normal M ood/Affect, vp respiratory II-XII Norm as Tested Skin: Normal Color, Warm/Dry, Rash (Petechial rash to the left hip region.) Focused Exam Lactate Level 06/27/20 22:11: Lactic Acid Level 0.59 Progress/Results/Core Measures Suspected Sepsis SIRS Temperature: Pulse: Respiratory Rate: Laboratory Tests 06/27/20 22:47: White Blood Count 14.2H 06/28/20 00:00: White Blood Count 10.4 Blood Pressure / Mean: 06/27/20 22:11: Lactic Acid Level 0.59 Laboratory Tests 06/27/20 22:11: INR Comment 1.0 06/27/20 22:47: Creatinine 1.09, Platelet Count 148, Total Bilirubin 0.5 06/28/20 00:00: Creatinine 0.91, Platelet Count 148 Results/Orders Lab Results Laboratory Tests Test 06/27/20 22:11 06/27/20 22:47 06/28/20 00:00 06/28/20 01:48 Range/Units Prothrombin Time 13.6 12.2-14.7 SEC INR Comment 1.0 0.8-1.4 Activated Partial Thromboplast Time 42 H 24-35 SEC Lactic Acid Level 0.59 0.50-2.00 MMOL/L Lactate Dehydrogenase 346 H 125-220 U/L Procalcitonin 0.07 0.07 <0.10 NG/ML White Blood Count 14.2 H 10.4 4.3-11.0 10^3/uL Red Blood Count 3.20 L 2.48 L 4.35-5.85 10^6/uL Hemoglobin 9.9 L 7.5 #L 11.5-16.0 G/DL Hematocrit 29 L 23 L 35-52 % Mean Corpuscular Volume 90 91 80-99 FL Mean Corpuscular Hemoglobin 31 30 25-34 PG Mean Corpuscular Hemoglobin Concent 34 33 32-36 G/DL Red Cell Distribution Width 14.9 H 14.7 H 10.0-14.5 % Platelet Count 148 148 130-400 10^3/uL Mean Platelet Volume 8.5 8.7 7.4-10.4 FL Neutrophils (%) (Auto) 80 H 84 H 42-75 % Lymphocytes (%) (Auto) 10 L 8 L 12-44 % Monocytes (%) (Auto) 10 9 0-12 % Eosinophils (%) (Auto) 0 0 0-10 % Basophils (%) (Auto) 0 0 0-10 % Neutrophils # (Auto) 11.4 H 8.7 H 1.8-7.8 X 10^3 Lymphocytes # (Auto) 1.4 0.8 L 1.0-4.0 X 10^3 Monocytes # (Auto) 1.4 H 0.9 0.0-1.0 X 10^3 Eosinophils # (Auto) 0.0 0.0 0.0-0.3 10^3/uL Basophils # (Auto) 0.0 0.0 0.0-0.1 10^3/uL Neutrophils % (Manual) 85 % Lymphocytes % (Manual) 9 % Monocytes % (Manual) 6 % Blood Morphology Comment NORMAL Sodium Level 131 L 132 L 135-145 MMOL/L Potassium Level 3.6 3.4 L 3.6-5.0 MMOL/L Chloride Level 94 L 97 L 98-107 MMOL/L Carbon Dioxide Level 25 25 21-32 MMOL/L Anion Gap 12 10 5-14 MMOL/L Blood Urea Nitrogen 13 11 7-18 MG/DL Creatinine 1.09 0.91 0.60-1.30 MG/DL Estimat Glomerular Filtration Rate 51 > 60 BUN/Creatinine Ratio 12 12 Glucose Level 113 H 112 H 70-105 MG/DL Calcium Level 9.1 8.4 L 8.5-10.1 MG/DL Corrected Calcium 8.8 8.5-10.1 MG/DL Total Bilirubin 0.5 0.1-1.0 MG/DL Aspartate Amino Transf (AST/SGOT) 33 5-34 U/L Alanine Aminotransferase (ALT/SGPT) 23 0-55 U/L Alkaline Phosphatase 98 40-136 U/L C-Reactive Protein High Sensitivity 13.60 H 15.88 H 0.00-0.50 MG/DL Total Protein 7.8 6.4-8.2 GM/DL Albumin 4.4 3.2-4.5 GM/DL TSH [place]estone Testing 0.89 0.35-4.94 UIU/ML Urine Color YELLOW Urine Clarity CLEAR Urine pH 6.0 5-9 Urine Specific Carpio <=1.005 1.016-1.022 Urine Protein NEGATIVE NEGATIVE Urine Glucose (UA) NEGATIVE NEGATIVE Urine Ketones NEGATIVE NEGATIVE Urine Nitrite NEGATIVE NEGATIVE Urine Bilirubin NEGATIVE NEGATIVE Urine Urobilinogen 0.2 < = 1.0 MG/DL Urine Leukocyte Esterase NEGATIVE NEGATIVE Urine RBC (Auto) 1+ H NEGATIVE Urine RBC 0-2 /HPF Urine WBC 0-2 /HPF Urine Squamous Epithelial Cells 5-10 /HPF Urine Crystals NONE /LPF Urine Bacteria NEGATIVE /HPF Urine Casts NONE /LPF Urine Mucus NEGATIVE /LPF Urine Culture Indicated NO Test 06/28/20 05:15 Range/Units My Orders Orders - MARLENE GARCIA MD Cbc With Automated Diff (06/27/20 22:39) Comprehensive Metabolic Panel (06/27/20 22:39) Hs C Reactive Protein (06/27/20 22:39) Thyroid Analyzer (06/27/20 22:39) Ua Culture If Indicated (06/27/20 22:39) Ed Iv/Invasive Line Start (06/27/20 22:39) Procalcitonin (Pct) (06/27/20 22:39) Manual Differential (06/27/20 22:47) Blood Culture (06/27/20 23:55) Sputum Culture (06/27/20 23:55) Urine Culture (06/27/20 23:55) Protime With Inr (06/27/20 23:55) Partial Thromboplastin Time (06/27/20 23:55) Remove Rings In Anticipation O (06/27/20 23:55) Lactic Acid Analyzer (06/27/20 23:55) Procalcitonin (Pct) (06/27/20 23:55) LDH (06/27/20 23:55) Chest 1 View, Ap/Pa Only (06/28/20 00:01) Cefepime Injection (Maxipime Injection) (06/28/20 03:15) Covid 19 Inhouse Test (06/28/20 03:43) Acetaminophen Tablet (Tylenol Tablet) (06/28/20 05:30) Medications Given in ED Current Medications Medications Dose Ordered Sig/Brenda Route Start Time Stop Time Status Last Admin Dose Admin Cefepime HCl 2000 mg/Sterile Water 20 ml @ 240 mls/hr ONCE ONCE IV 06/28/20 03:15 06/28/20 03:19 DC 06/28/20 05:09 240 MLS/HR Vital Signs/I&O 06/28/20 06/28/20 06/28/20 06/28/20 05:20 05:37 06:07 06:10 Temp 38.3 38.3 38.2 Pulse 94 90 Resp 16 18 B/P (MAP) 151/89 141/87 Pulse Ox 97 97 97 O2 Delivery Room Air Room Air Room Air 06/28/20 08:00 Temp 37.1 Pulse 74 Resp 20 B/P (MAP) 120/72 (88) Pulse Ox 96 O2 Delivery Room Air Capillary Refill : Progress Note : Progress Note Case was discussed with Dr. Marinelli. Patient typically has a leukopenia and now has a leukocytosis. He is concerned this may represent a significant infection. Septic workup was pursued. Antibiotic therapy with cefepime was started. COVID swab was obtained. Patient was admitted for further evaluation and treatment. He recommended consulting Dr. vAiles in the morning. Diagnostic Imaging Diagonstic Imaging: Xray Plain Films/CT/US/NM/MRI: chest Comments Chest x-ray viewed by me. Report not yet available. There was some blurring of the lower lung jovel and blunting of the left costophrenic angle. Pneumonia c annot be ruled out. Departure Communication (Admissions) Time/Spoke to Admitting Phy: 03:30 Dr. Holman Impression Primary Impression: Fever Qualified Codes: R50.9 - Fever, unspecified Additional Impressions: Pulmonary infiltrate CML (chronic myelocytic leukemia) Disposition: ADMITTED INPATIENT Condition: Improved Admissions Decision to Admit Reason: Admit from ER (General) Decision to Admit/Date: Jun 28, 2020 Time/Decision to Admit Time: 03:30 Departure-Patient Inst. Referrals: LEON HOLMAN MD (PCP/Family) Primary Care Physician Copy Copies To 1: LEON HOLMAN MD Copies To 2: CARLENE MARINELLI JOSHUA T MD Jun 28, 2020 03:42
[2020-06-28] MEDS ORDERED: ACETAMINOPHEN 500 MG TAB (TYLENOL) ONE (05:18)
[2020-06-28] MEDS ORDERED: ACETAMINOPHEN 500 MG TAB (TYLENOL) PO ONE (05:30)
[2020-06-28 06:07] VITALS: BP 141/87
[2020-06-28] MEDS ORDERED: ACETAMINOPHEN 500 MG TAB (TYLENOL) PO PRN (06:15)
[2020-06-28] MEDS ORDERED: ONDANSETRON 4 MG/2 ML (SDV) Z0FRAN IV PRN (06:15)
[2020-06-28 07:08] LABS: BASOPHILS % (AUTO) 0 % (0-10); EOSINOPHILS % (AUTO) 0 % (0-10); HEMATOCRIT 23 % (35-52); HEMOGLOBIN 7.5 G/DL (11.5-16.0); LYMPHOCYTES # (AUTO) 0.8 X 10^3 (1.0-4.0); LYMPHOCYTES % (AUTO) 8 % (12-44); MEAN CORPUSCULAR HEMOGLOBIN 30 PG (25-34); MEAN CORPUSCULAR HGB CONC 33 G/DL (32-36); MEAN CORPUSCULAR VOLUME 91 FL (80-99); MEAN PLATELET VOLUME 8.7 FL (7.4-10.4); MONOCYTES # (AUTO) 0.9 X 10^3 (0.0-1.0); MONOCYTES % (AUTO) 9 % (0-12); NEUTROPHILS # (AUTO) 8.7 X 10^3 (1.8-7.8); NEUTROPHILS % (AUTO) 84 % (42-75); PLATELET COUNT 148 10^3/uL (130-400); RED CELL DISTRIBUTION WIDTH 14.7 % (10.0-14.5); WHITE BLOOD COUNT 10.4 10^3/uL (4.3-11.0)
[2020-06-28] MEDS ORDERED: CATHETER FLUSH 10 ML SYR IV PRN (07:30)
[2020-06-28 07:32] LABS: CHLORIDE 97 MMOL/L (98-107); POTASSIUM 3.4 MMOL/L (3.6-5.0); SODIUM 132 MMOL/L (135-145)
[2020-06-28 07:33] LABS: CALCIUM 8.4 MG/DL (8.5-10.1)
[2020-06-28 07:34] LABS: GLUCOSE 112 MG/DL (70-105)
[2020-06-28 07:35] LABS: CARBON DIOXIDE 25 MMOL/L (21-32)
[2020-06-28 07:37] LABS: CREATININE SERUM 0.91 MG/DL (0.60-1.30); GFR ESTIMATED > 60
[2020-06-28 07:38] LABS: BUN/CREATININE RATIO 12
[2020-06-28 08:00] VITALS: BP 120/72
--- NOTE | 2020-06-28 08:12 | Diagnostic Imaging Report ---
EXAMINATION: Chest radiograph, portable AP view. DATE: 06/28/2020 12:30 AM hours. INDICATION: 64-year-old female, fever. COMPARISON: None. FINDINGS: Heart size and mediastinal contours are unremarkable. There is no identified pneumothorax. There is blunting of the left lateral costophrenic angle. The right lung appears grossly clear. IMPRESSION: 1. Blunting of the left lateral costophrenic angle which may relate to small effusion, infiltrate, and/or atelectasis. Dictated by: Dictated on workstation # [id number]
[2020-06-28] MEDS: LEVOTHYROXINE 100 MCG (LEVOTHROID) TAB PO SCH (08:22)
--- NOTE | 2020-06-28 08:22 | NUR ---
PATIENT IS CALLING FAMILY TO BRING HER HOME MEDICATION.
--- NOTE | 2020-06-28 08:22 | History & Physicial ---
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 She does admit to some drainage in the nasopharyngeal region and she just assume this was probably her allergies. She does have an occasional cough. She denies any burning on urination. She also reports a rash on the buttocks area but it does not hurt. She did not have any exposures to chemicals or plants that may have caused the rash. Regarding coronavirus she has been very careful and wearing her mask while she is out in the public. Date of Admission Jun 28, 2020 at 03:37 Date Seen by a Provider: Jun 28, 2020 Time Seen by a Provider: 08:00 I consulted on this patient on 06/28/20 08:18 Attending Physician Leon Holman MD Admitting Physician Leon Holman MD Consult Allergies and Home Medications Allergies Coded Allergies: Sulfa (Sulfonamide Antibiotics) (Verified Allergy, Mild, HIVES, 01/11/19) famotidine (Verified Allergy, Mild, N/V, 01/11/19) Home Medications Dasatinib 70 Mg Tablet, 70 MG PO DAILY, (Reported) Enalapril Maleate 20 Mg Tablet, 20 MG PO DAILY, (Reported) Ferrous Gluconate 240 Mg Tablet, 240 MG PO TIDWM, (Reported) Folic Acid 1 Mg Tablet, 1 MG PO 1200, (Reported) Hydrochlorothiazide 25 Mg Tablet, 25 MG PO DAILY, (Reported) Levothyroxine Sodium 100 Mcg Tablet, 100 MCG PO DAILY Prescribed by: KEN BAER on 01/17/19 1210 Metoprolol Succinate 25 Mg Tab.er.24h, 25 MG PO DAILY, (Reported) Simvastatin 10 Mg Tablet, 10 MG PO DAILY, (Reported) Patient Home Medication List Home Medication List Reviewed: Yes Past Ykstsau-Qctwll-Hfqhin Hx Patient Social History Marrital Status: 2nd Hand Smoke Exposure: No Recent Foreign Travel: No Contact w/other who traveled: No Recent Hopitalizations: No Recent Infectious Disease Expo: No Immunizations Up To Date Tetanus Booster (TDap): More than 5yrs Pediatric: No Date of Pneumonia Vaccine: Aug 14, 2015 Date of Influenza Vaccine: Aug 28, 2018 Seasonal Allergies Seasonal Allergies: Yes Surgeries Yes (colostomy, CATARACT) Bowel Surgery, Hysterectomy Respiratory No Cardiovascular Yes High Cholesterol, Hypertension Neurological No Reproductive System Hx Reproductive Disorders: No Sexually Transmitted Disease: No HIV/AIDS: No 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 Genitourinary No Gastrointestinal Yes (COLECTOMY-FROM OBSTRUCTION, COLOSTOMY) Obstructive Bowel, Chronic Diarrhea Musculoskeletal No Endocrine History of Endocrine Disorders: Yes (THYROID NODULES) HEENT History of HEENT Disorders: Yes (GLASSES) Loss of Vision: Bilateral Cancer Yes (CHRONIC MYELOID LEUKEMIA MAY 2009) Leukemia, Skin Psychosocial History of Psychiatric Problem: No Integumentary History of Skin or Integumenta: No Blood Transfusions History of Blood Disorders: Yes (LEUKEMIA) Adverse Reaction to a Blood Tr: No (HAS HAD BLOOD WITH NO REACTION ) Family Medical History Significant Family History: No Pertinent Family Hx Review of Systems Constitutional: see HPI Physical Exam Vital Signs Vital Signs - First Documented 06/27/20 06/28/20 22:28 05:37 Temp 38.8 Pulse 97 Resp 20 B/P (MAP) 187/86 (119) Pulse Ox 97 O2 Delivery Room Air Capillary Refill : Height, Weight, BMI Height: 5'2.00" Weight: 162lbs. 0.0oz. 73.708467as; 31.16 BMI Method:Stated General Appearance: No Apparent Distress Eyes: Bilateral Eye Normal Inspection HEENT: Pharynx Normal, Moist Mucous Membranes Neck: Supple Respiratory: Lungs Clear Cardiovascular: Regular Rate, Rhythm Gastrointestinal: Soft Back: Other (Flat erythematous rash on buttock cheeks) Extremity: Normal Capillary Refill Neurologic/Psychiatric: Alert, Oriented x3 Skin: Normal Color Assessment/Plan Assessment and Plan 1. Febrile illness -Monitor white blood cell count. -Tylenol as needed 2. Pulmonary infiltrates - day number 1 cefepime 3. CML - hematology consult to and through emergency department 4. Rash buttocks - monitor clinically 5. Anemiamost likely delusional and not bleed -check hemoglobin daily Admission Diagnosis 1. Febrile illness 2. Pulmonary infiltrates 3. CML 4. Rash buttocks 5. Anemia Admission Status: Observation Reason for Inpatient Admission: IV antibiotic cefepime. Hematology consultation Clinical Quality Measures DVT/VTE Risk/Contraindication: Risk Factor Score Per Nursin RFS Level Per Nursing on Admit: 4+=Very High LEON HOLMAN MD Jun 28, 2020 08:22
--- NOTE | 2020-06-28 08:50 | NUR ---
ATTEMPTED TO CALL CONSULT TO DR GOODSON THE PHONE NUMBER PROVIDED ON THE ED ORDERS IS NOT THE CORRECT NUMBER. A PERSON ANSWERED THE PHONE AND STATED THAT IT WAS THE WRONG NUMBER ([phone]). POTASH FLAKER RUTH NOTIFIED. SHE IS WORKING ON GETTING THE CORRECT NUMBER TO CALL.
[2020-06-28] MEDS ORDERED: DASATINIB 70 MG PO SCH (09:00)
--- NOTE | 2020-06-28 11:58 | NUR ---
NEW PHONE NUMBER [phone]. DR GOODSON NOTIFIED OF CONSULT
[2020-06-28 12:00] VITALS: BP 146/81
[2020-06-28 16:29] VITALS: BP 164/87
[2020-06-28] MEDS: CATHETER FLUSH 10 ML SYR IV SCH ×2 (16:39→21:01)
[2020-06-28] MEDS: CEFEPIME INJECTION 2,000 MG in WATER (STERILE) FOR INJECTION 20 ML IV SCH (16:39)
--- NOTE | 2020-06-28 16:46 | NUR ---
DR HOLMAN CALLED. NOTIFIED OF PATIENT'S BLOOD PRESSURE AND DVT. HOME MEDICATIONS RESTARTED. NO LOVENOX. AMBULATE AND SCD'S.
[2020-06-28] MEDS: DASATINIB 70 MG PO SCH (16:55)
--- NOTE | 2020-06-28 17:01 | NUR ---
ALMOND HULLER RUTH NOTIFIED. THE PATIENT DID NOT GET THE FOOD THAT SHE ORDERED ON THE MENU ORDER SHEET FOR LUNCH OR FOR DINNER.
[2020-06-28] MEDS ORDERED: MTP25TSR PO (17:29)
[2020-06-28] MEDS ORDERED: FERR240T5 PO (17:29)
[2020-06-28] MEDS ORDERED: FERROUS GLUCONATE 240 MG PO SCH (18:00)
[2020-06-28] MEDS: HYDROCHLOROTHIAZIDE 25 MG (HCTZ) TAB PO SCH (18:38)
[2020-06-28] MEDS: ENALAPRIL 10 MG (VASOTEC) TAB PO SCH (18:39)
[2020-06-28 20:22] VITALS: BP 154/89
[2020-06-28] MEDS: SIMvastatin 10 MG (ZOCOR) TAB PO SCH (21:01)
[2020-06-28 23:18] VITALS: BP 122/82
[2020-06-29 04:00] VITALS: BP 134/83
[2020-06-29] MEDS: LEVOTHYROXINE 100 MCG (LEVOTHROID) TAB PO SCH (04:48)
[2020-06-29] MEDS: CATHETER FLUSH 10 ML SYR IV SCH ×3 (04:48→20:42)
[2020-06-29] MEDS: CEFEPIME INJECTION 2,000 MG in WATER (STERILE) FOR INJECTION 20 ML IV SCH ×2 (04:48→17:32)
--- NOTE | 2020-06-29 07:53 | Progress Note ---
Subjective Date Seen by a Provider: Jun 29, 2020 Time Seen by a Provider: 08:00 Subjective/Events-last exam Patient reports actually feeling pretty good. She does not report any issues with significant cough or fever. After further discussion about anemia she does show me that her colostomy bag has been a little bit more blood like Focused Exam Lactate Level 06/27/20 22:11: Lactic Acid Level 0.59 Objective Exam Vital Signs Date Time Temp Pulse Resp B/P (MAP) Pulse Ox O2 Delivery O2 Flow Rate FiO2 06/29/20 04:00 36.7 69 20 134/83 (100) 97 Room Air 06/28/20 23:18 37.1 73 18 122/82 (95) 96 Room Air 06/28/20 21:38 37.4 06/28/20 21:08 38.0 06/28/20 20:22 38.0 75 20 154/89 (110) 100 Room Air 06/28/20 20:00 Room Air 06/28/20 16:29 37.1 79 20 164/87 (112) 99 Room Air 06/28/20 12:00 36.4 81 20 146/81 (102) 99 Room Air 06/28/20 08:00 96 Room Air 06/28/20 08:00 37.1 74 20 120/72 (88) 96 Room Air I & O 06/29/20 07:00 Intake Total 2035 ml Output Total 1250 ml Balance 785 ml Capillary Refill : Less Than 3 Seconds General Appearance: No Apparent Distress Neck: Supple Respiratory: Lungs Clear Cardiovascular: Regular Rate, Rhythm Gastrointestinal: soft, other (blood like material in her colostomy) Results Lab Microbiology 06/27/20 Blood Culture - Preliminary, Resulted Gram Positive Cocci Assessment/Plan Assessment/Plan Assess & Plan/Chief Complaint 1. Febrile illness -Monitor white blood cell count. -Tylenol as needed 06/29 -Blood culture had gram-positive cocci Day number 2 of cefepime 2. Pulmonary infiltrates - day number 1 cefepime 06/29 -Blunting of the costophrenic angle 3. CML - hematology consult to and through emergency department 4. Rash buttocks - monitor clinically 5. Anemiamost likely delusional and not bleed -check hemoglobin daily 06/29 -Hg pending this morning -possibility this may be related to GI -Check occult blood Clinical Quality Measures Admission Status Admission Dx 1. Febrile illness 2. Pulmonary infiltrates 3. CML 4. Rash buttocks 5. Anemia DVT/VTE Risk/Contraindication: Risk Factor Score Per Nursin RFS Level Per Nursing on Admit: 4+=Very High Other: PATIENT IS AMBULATORY LEON HOLMAN MD Jun 29, 2020 07:53
[2020-06-29 08:00] VITALS: BP 148/80
[2020-06-29] MEDS ORDERED: NON-FORMULARY MEDICATION 1 EA EA (Enalapril Maleate 20 MG) PO SCH (09:00)
[2020-06-29] MEDS ORDERED: HYDROCHLOROTHIAZIDE 25 MG (HCTZ) TAB PO SCH (09:00)
[2020-06-29] MEDS ORDERED: SIMvastatin 10 MG (ZOCOR) TAB PO SCH (09:00)
[2020-06-29] MEDS: HYDROCHLOROTHIAZIDE 25 MG (HCTZ) TAB PO SCH (09:09)
[2020-06-29] MEDS: ENALAPRIL 10 MG (VASOTEC) TAB PO SCH (09:09)
[2020-06-29] MEDS: FERROUS SULF 325 MG (IRON) TAB PO SCH ×2 (09:09→17:33)
[2020-06-29 12:00] VITALS: BP 137/80
[2020-06-29] MEDS: FOLIC ACID 1 MG TAB PO SCH (12:30)
--- NOTE | 2020-06-29 12:57 | CONSULTATION REPORT ---
DATE OF SERVICE: 06/29/2020 REASON FOR THE CONSULT: CML admitted because of fever. HISTORY OF PRESENT ILLNESS: The patient is a 64-year-old female patient with past medical history of CML. She was diagnosed with CML in 04/2009, in accelerated phase, she started on treatment with Gleevec, which has to be stopped due to generalized rash. Treatment was changed to Sprycel in 06/2009 with complete molecular response for several years. The patient decided to try to discontinue the TKI therapy starting on 10/2018, but was diagnosed with recurrence by 12/2018. She was restarted on Sprycel at a reduced dose of 70 mg daily and is tolerating it well. She was admitted to the hospital because of a fever of 100.9, mild coughing. PHYSICAL EXAM: VITAL SIGNS: Show normal vital signs. CHEST: Showed normal breath sounds, no wheezes, rhonchi or crackles. CARDIOVASCULAR: Revealed normal S1, S2 with no murmur. ABDOMEN: Showed no tenderness or rigidity. No organomegaly. LABORATORY DATA: Showed white count of 14.2, hemoglobin of 9.9 and platelet count of 148 with a normal CMP. ASSESSMENT AND PLAN: CML on Sprycel. Admitted because of fever. Continue the same antibiotics. Followup of the blood cultures and continue COVID-19 workup. Job ID: [id number] DocumentID: [id number] Dictated Date: 06/29/2020 11:49:05 Astronomy Instructor Date: 06/29/2020 12:56:09 Dictated By: TARA GOODSON MD
--- NOTE | 2020-06-29 15:58 | NUR ---
LAB CALLED TO REPORT PT IS NEGATIVE FOR COVID. DR HOLMAN NOTIFIED AND ORDERED TO TAKE PT OUT OF CONTACT AND DROPLET ISOLATION. PT WILL REMAIN IN SAME ROOM.
[2020-06-29 16:40] VITALS: BP 154/85
[2020-06-29] MEDS: DASATINIB 70 MG PO SCH (17:33)
[2020-06-29 20:00] VITALS: BP 164/78
[2020-06-29] MEDS: SIMvastatin 10 MG (ZOCOR) TAB PO SCH (20:41)
[2020-06-30] VITALS: BP 146/74
--- NOTE | 2020-06-30 00:37 | NUR ---
PT REPORTS WAKING UP WITH SHORTNESS OF BREATHE AND WHEEZING. PT THEN STATES THAT SHE WAS HAVING DIFFICULTY COUGHING UP PHLEGM, BUT IT HAD GOTTEN STUCK IN HER THROAT FOR A LITTLE BIT BEFORE SHE WAS ABLE TO DISLODGE IT, WHICH SHE STATES THAT SHE SWALLOWED IT. PT IS COUGHING AT THIS TIME, BUT IS NOT COUGHING ANYTHING UP-- UPON ASSESSMENT, LUNGS SOUND CLEAR BILAT. AND PATIENT IS ADEQUATELY VENTILATING AIR. VITALS SIGNS ARE WNL WITH RESPIRATIONS AT 18 AND O2 SAT 96% ON ROOM AIR. PT REQUESTED WARM TEA WITH HONEY TO HELP OPEN HER AIRWAY. AFTER DRINKING TEA, PT STATES THAT SHE IS BREATHING BETTER. NO OTHER CONCERNS AT THIS TIME. WILL CONTINUE TO MONITOR FOR ANY CHANGES.
[2020-06-30 04:00] VITALS: BP 138/78
[2020-06-30] MEDS: LEVOTHYROXINE 100 MCG (LEVOTHROID) TAB PO SCH (05:25)
[2020-06-30] MEDS: CATHETER FLUSH 10 ML SYR IV SCH ×2 (05:25→12:49)
[2020-06-30] MEDS: CEFEPIME INJECTION 2,000 MG in WATER (STERILE) FOR INJECTION 20 ML IV SCH (05:25)
[2020-06-30 05:26] LABS: BASOPHILS % (AUTO) 0 % (0-10); EOSINOPHILS # (AUTO) 0.3 10^3/uL (0.0-0.3); EOSINOPHILS % (AUTO) 4 % (0-10); HEMATOCRIT 32 % (35-52); HEMOGLOBIN 10.7 G/DL (11.5-16.0); LYMPHOCYTES # (AUTO) 1.5 X 10^3 (1.0-4.0); LYMPHOCYTES % (AUTO) 22 % (12-44); MEAN CORPUSCULAR HEMOGLOBIN 30 PG (25-34); MEAN CORPUSCULAR HGB CONC 34 G/DL (32-36); MEAN CORPUSCULAR VOLUME 89 FL (80-99); MEAN PLATELET VOLUME 10.1 FL (7.4-10.4); MONOCYTES # (AUTO) 0.9 X 10^3 (0.0-1.0); MONOCYTES % (AUTO) 14 % (0-12); NEUTROPHILS % (AUTO) 60 % (42-75); PLATELET COUNT 278 10^3/uL (130-400); RED CELL DISTRIBUTION WIDTH 14.7 % (10.0-14.5); WHITE BLOOD COUNT 6.7 10^3/uL (4.3-11.0)
[2020-06-30 05:36] LABS: ALBUMIN 4.1 GM/DL (3.2-4.5); POTASSIUM 4.3 MMOL/L (3.6-5.0)
[2020-06-30 05:38] LABS: CALCIUM 8.3 MG/DL (8.5-10.1)
[2020-06-30 05:39] LABS: TOTAL PROTEIN 8.2 GM/DL (6.4-8.2)
[2020-06-30 05:41] LABS: BILIRUBIN,TOTAL 0.3 MG/DL (0.1-1.0)
[2020-06-30 05:42] LABS: CREATININE SERUM 0.95 MG/DL (0.60-1.30)
--- NOTE | 2020-06-30 05:54 | NUR ---
THIS RN CONTACTED LAB D/T HAVING THE WRONG DATE ON THE LABS THAT WERE COLLECTED THIS MORNING. LAB INFORMED THIS RN THAT THEY COULD NOT CHANGE THE DATE AT THIS TIME AND WOULD HAVE TO WAIT FOR ANOTHER COWORKER TO COME IN LATER TODAY IN ORDER TO GET THAT DATE CHANGED. LAB WAS DATED FOR 06/29/2020, HOWEVER WAS COLLECTED ON 06/30/2020.
--- NOTE | 2020-06-30 06:56 | Progress Note ---
Subjective Date Seen by a Provider: Jun 30, 2020 Time Seen by a Provider: 07:00 Subjective/Events-last exam No fever overnight. She has not noted any red discoloration to stool recently. Had spell of getting "choked up" last night. Focused Exam Lactate Level 06/27/20 22:11: Lactic Acid Level 0.59 Objective Exam Vital Signs Date Time Temp Pulse Resp B/P (MAP) Pulse Ox O2 Delivery O2 Flow Rate FiO2 06/30/20 04:00 36.8 72 20 138/78 (98) 94 Room Air 06/30/20 00:00 37.2 72 18 146/74 (98) 96 Room Air 06/29/20 20:00 37.2 69 20 164/78 (106) 99 Room Air 06/29/20 20:00 Room Air 06/29/20 16:40 36.5 67 18 154/85 (108) 99 Room Air 06/29/20 12:00 35.4 66 20 137/80 (99) 99 Room Air 06/29/20 08:00 35.8 80 20 148/80 (102) 97 Room Air 06/29/20 08:00 Room Air I & O 06/30/20 07:00 Intake Total 3140 ml Balance 3140 ml Capillary Refill : Less Than 3 Seconds General Appearance: No Apparent Distress Respiratory: Lungs Clear Cardiovascular: Regular Rate, Rhythm Gastrointestinal: soft, other (colostomy bag viewed. No pink or reddness noted) Neurologic/Psychiatric: Alert, Oriented x3 Results Lab Laboratory Tests 06/29/20 12:15: Stool Occult Blood Immunoassay POSITIVEH 06/30/20 05:05: White Blood Count 6.7, Red Blood Count 3.55L, Hemoglobin 10.7#L, Hematocrit 32L, Mean Corpuscular Volume 89, Mean Corpuscular Hemoglobin 30, Mean Corpuscular Hemoglobin Concent 34, Red Cell Distribution Width 14.7H, Platelet Count 278, Mean Platelet Volume 10.1, Neutrophils (%) (Auto) 60, Lymphocytes (%) (Auto) 22, Monocytes (%) (Auto) 14H, Eosinophils (%) (Auto) 4, Basophils (%) (Auto) 0, Neutrophils # (Auto) 4.0, Lymphocytes # (Auto) 1.5, Monocytes # (Auto) 0.9, Eosinophils # (Auto) 0.3, Basophils # (Auto) 0.0, Sodium Level 129L, Potassium Level 4.3, Chloride Level 96L, Carbon Dioxide Level 21, Anion Gap 12, Blood Urea Nitrogen 18, Creatinine 0.95, Estimat Glomerular Filtration Rate 59, BUN/Creatin ine Ratio 19, Glucose Level 80, Calcium Level 8.3L, Corrected Calcium 8.2L, Total Bilirubin 0.3, Aspartate Amino Transf (AST/SGOT) 68H, Alanine Aminotransferase (ALT/SGPT) 34, Alkaline Phosphatase 126, Total Protein 8.2, Albumin 4.1 Microbiology 06/28/20 Urine Culture - Final, Complete Normal skin melida 06/27/20 Blood Culture - Preliminary, Resulted Strep Species, Alpha Hemolytic Assessment/Plan Assessment/Plan Assess & Plan/Chief Complaint 1. Febrile illness -Monitor white blood cell count. -Tylenol as needed 06/29 -Blood culture had gram-positive cocci Day number 2 of cefepime 2. Pulmonary infiltrates - day number 1 cefepime 06/29 -Blunting of the costophrenic angle 06/30 -day #3 cefepime -check CXR this am 3. CML - hematology consult to and through emergency department 4. Rash buttocks - monitor clinically 5. Anemiamost likely delusional and not bleed -check hemoglobin daily 06/29 -Hg pending this morning -possibility this may be related to GI -Check occult blood 06/30 -Hg improved to 10.7 6. Hyponatremia Clinical Quality Measures Admission Status Admission Dx 1. Febrile illness 2. Pulmonary infiltrates 3. CML 4. Rash buttocks 5. Anemia DVT/VTE Risk/Contraindication: Risk Factor Score Per Nursin RFS Level Per Nursing on Admit: 4+=Very High Other: PATIENT IS AMBULATORY LEON HOLMAN MD Jun 30, 2020 06:56
[2020-06-30 08:00] VITALS: BP 140/66
[2020-06-30] MEDS: FERROUS SULF 325 MG (IRON) TAB PO SCH (08:20)
[2020-06-30] MEDS: HYDROCHLOROTHIAZIDE 25 MG (HCTZ) TAB PO SCH (08:20)
[2020-06-30] MEDS: ENALAPRIL 10 MG (VASOTEC) TAB PO SCH (08:22)
--- NOTE | 2020-06-30 09:19 | Diagnostic Imaging Report ---
INDICATION: Abnormal chest x-ray PA and lateral views of the chest obtained with comparison made to study of 06/28/2020. Similar to the previous study, there is continued blunting left costophrenic sulcus likely due to mild pleural fluid and/or thickening. Overall heart size at the upper limits of normal. Pulmonary vascularity is unremarkable. There is no pneumothorax or evidence of overt edema. Surgical clips are seen in the lower neck. IMPRESSION: Small left pleural effusion versus pleural thickening. Otherwise, no acute abnormality or adverse change is identified. Dictated by: Dictated on workstation # [id number]
[2020-06-30] MEDS ORDERED: FOLIC ACID PO (10:48)
[2020-06-30] MEDS ORDERED: CALC-823 PO (10:48)
[2020-06-30] MEDS ORDERED: ACET-2267 PO (10:48)
[2020-06-30] MEDS ORDERED: IBUP-30 PO (10:48)
[2020-06-30] MEDS ORDERED: KETO10DR5 OU (10:48)
[2020-06-30] MEDS ORDERED: LEVO100T7 PO (10:48)
[2020-06-30] MEDS ORDERED: LATA2.5D5 OU (10:48)
[2020-06-30] MEDS ORDERED: MULT-1067 PO (10:48)
--- NOTE | 2020-06-30 10:52 | NUR ---
I SPOKE WITH THE PATIENT IN THE ROOM AND WENT THROUGH THE EXTERNAL MED HISTORY TO COMPLETE THE MED REC. I UPDATED THESE MEDS AND LET THE PHARMACIST KNOW. OTC: ALAWAY EYE DROPS TYLENOL ADVIL CALCIUM CENTRUM
[2020-06-30 12:00] VITALS: BP 135/67
[2020-06-30] MEDS: FOLIC ACID 1 MG TAB PO SCH (12:47)
--- NOTE | 2020-06-30 15:06 | Discharge Inst-Simple/Standard ---
Discharge Inst-Standard Reconcile Patient Problems Problems Reviewed?: Yes Discharge Medications New, Converted or Re-Newed RX: Transmitted to Pharmacy Patient Instructions/Follow Up Plan of Care/Instructions/FU: Follow up with Dr Holman in 3-4 days Activity as Tolerated: Yes Discharge Diet: Regular Diet Return to The Hospital For: fever greater than 101 or worsening shortness of breath LEON HOLMAN MD Jun 30, 2020 15:06
[2020-06-30] MEDS ORDERED: CEPH500T PO (15:09)
--- NOTE | 2020-06-30 15:11 | Discharge Summary ---
Diagnosis/Chief Complaint Date of Admission Jun 28, 2020 Date of Discharge June 30, 2020 Discharge Date: Jun 30, 2020 Discharge Time: 16:00 Admission Diagnosis Admission Diagnosis 1. Febrile illness 2. Pulmonary infiltrates 3. CML 4. Rash buttocks 5. Anemia Discharge Diagnosis 1. Febrile illness 2. Pulmonary infiltrates/pneumonia 3. CML 4. Rash buttocks 5. Anemiamost likely delusional and not bleed 6. 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 She does admit to some drainage in the nasopharyngeal region and she just assume this was probably her allergies. She does have an occasional cough. She denies any burning on urination. She also reports a rash on the buttocks area but it does not hurt. She did not have any exposures to chemicals or plants that may have caused the rash. Regarding coronavirus she has been very careful and wearing her mask while she is out in the public. Discharge Summary Hospital Course Was the Problem List Reviewed?: Yes Hospital Course patient was admitted during the evening of June 27, 2020. She was first seen in the morning of June 28, 2020 where she was noted to have a febrile illness. She had been started on cefepime in the emergency department. She was felt possibly to have early pneumonia as cause for her febrile illness. On chest x- ray there was blunting of the left costophrenic angle. Patient has known CML and hematology was consult did due to her ongoing chronic condition and recommendations from a hematologic standpoint. She was also noted to have anemia on June 29. They rechecked the following day revealed hemoglobin to be stable and improved to 10.7. It was initially felt possibly the drop in hem oglobin was delusional. Recheck x-ray in the morning of dismissal revealed no worsening of the costophrenic angle. Her vital signs were stable and she was afebrile on the morning of dismissal. She was eager for dismissal and was given oral antibiotics to finish outpatient. A recheck chest x-ray will be performed in one month to check costophrenic angle. Labs Procedures None. Discharge Physical Examination Allergies: Coded Allergies: Sulfa (Sulfonamide Antibiotics) (Verified Allergy, Mild, HIVES, 01/11/19) famotidine (Verified Allergy, Mild, N/V, 01/11/19) Vitals & I&Os Vital Signs Date Time Temp Pulse Resp B/P (MAP) Pulse Ox O2 Delivery O2 Flow Rate FiO2 06/30/20 15:46 36.8 65 18 135/67 98 Room Air General Appearance: Alert, Oriented X3 Respiratory: Clear to Auscultation Cardiovascular: Regular Rate Abdominal: Soft Neuro: Normal Speech Discharge Home Medications Reviewed and agree with Discharge Medication list on patient's Discharge Instruction sheet Instructions to Patient/Family Please see electronic discharge instructions given to patient. Clinical Quality Measures DVT/VTE Risk/Contraindication: Risk Factor Score Per Nursin RFS Level Per Nursing on Admit: 4+=Very High Other: PATIENT IS AMBULATORY LEON HOLMAN MD Jun 30, 2020 15:11
[2020-06-30 15:46] VITALS: BP 135/67
--- OUTSIDE RECORDS SUMMARY | 2020-07-01 10:29 | XMS REPORT ---
Author Author Agata Zuleta Organization [facility] Address [address] [place] [address] Care Team Providers Care Power Tool Repairer Name Role Phone EVELYN Zuleta Unavailable PROBLEMS Type Condition ICD9-CM Code [id number] Code Onset Dates Condition S tatus SNOMED Code Problem Need for prophylactic vaccination and inoculation, Influen za V04.81 Active [id number] ALLERGIES No Information ENCOUNTERS Encounter Location Date Diagnosis [facility] [address] [facility] [id number] [address] [place] [phone] Aug, Encounter for immunization Z 23 [facility] [address] [facility] [id number] [address] [place] [phone] Aug, [facility] [address] [facility] [id number] [address] [place] [phone] Aug, [facility] [address] [facility] [id number] [address] [place] [phone] Aug, [facility] [address] [facility] [id number] [address] [place] [phone] Aug, [facility] [address] [facility] [id number] [address] [place] [phone] Aug, [facility] [address] [facility] [id number] [address] [place] [phone] Aug, IMMUNIZATIONS No Known Immunizations SOCIAL HISTORY Never Assessed REASON FOR VISIT PLAN OF CARE VITAL SIGNS MEDICATIONS Unknown Medications RESULTS No Results PROCEDURES No Known procedures INSTRUCTIONS MEDICATIONS ADMINISTERED No Known Medications
--- OUTSIDE RECORDS SUMMARY | 2020-07-01 10:29 | XMS REPORT ---
Author Author Agata Zuleta Organization [facility] Address [address] [place] [address] Care Team Providers Care Wellness Coach Name Role Phone EVELYN Zuleta Unavailable PROBLEMS Type Condition ICD9-CM Code [id number] Code Onset Dates Condition S tatus SNOMED Code Problem Need for prophylactic vaccination and inoculation, Influen za V04.81 Active [id number] ALLERGIES No Information ENCOUNTERS Encounter Location Date Diagnosis [facility] [address] [id number] [address] [place] [phone] Aug, Encounter for immunization Z 23 [facility] [address] [facility] [id number] [address] [place] [phone] Aug, [facility] [address] [id number] [address] [place] [phone] Aug, [facility] [address] [facility] [id number] [address] [place] [phone] Aug, [facility] [address] [facility] [id number] [address] [place] [phone] Aug, [facility] [address] [facility] [id number] [address] [place] [phone] Aug, [facility] [address] [id number] [address] [place] [phone] Aug, IMMUNIZATIONS No Known Immunizations SOCIAL HISTORY Never Assessed REASON FOR VISIT PLAN OF CARE VITAL SIGNS MEDICATIONS Unknown Medications RESULTS No Results PROCEDURES No Known procedures INSTRUCTIONS MEDICATIONS ADMINISTERED No Known Medications
--- OUTSIDE RECORDS SUMMARY | 2020-07-01 10:30 | XMS REPORT | Continuity of Care Document ---
Author Author [facility] Organization [employer] Address Unknown Phone Unavailable Allergies Active Description Code Type Severity Reaction Onset Reported/Identified Relationship to Patient Clinical Status Yes famotidine [id number] Drug Allerg y Unknown N/A 09/11/2009 Yes Sulfa (Sulfonamide Antibiotics) [id number] 0491 Drug Allergy Unknown N/A 009 Yes famotidine [id number] Drug Allerg y Mild N/V 01/11/2019 Yes Sulfa (Sulfonamide Antibiotics) [id number] 0491 Drug Allergy Mild HIVES 9 Medications There is no data. Problems Date Dx Coded Attending Type Code Diagnosis Diagnosed By CARLENE THRASHER Ot C92.10 CHRONIC MYELOID LEUK, BCR/ABL-POSITIVE, CARLENE THRASHER Ot D50.9 IRON DEFICIENCY ANEMIA, UNSPECIFIED CARLENE THRASHER Ot N18.3 CHRONIC KIDNEY DISEASE, STAGE 3 (MODERAT CARLENE THRASHER Ot Z79.899 OTHER HATCH BOSS (CURRENT) DRUG THERAPY 10/13/1634 MANDA BECKMAN, LEON Medrano Ot R60. 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 04/19/2011 Ot V44.3 COLO STOMY STATUS 04/19/2011 Ot V58.69 OTH MED,LT,CURRENT USE 04/19/2011 Ot V67.09 SARAH ADRIANNE FOLLOW- UP, OTHER SURGERY 05/24/2011 Ot 205.10 CHR ONIC MYELOID LEUKEMIA, W/O MENTION AC 05/24/2011 Ot 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, STAGE III (MODER 05/24/2011 Ot V58.69 OTH MED,LT,CURRENT USE 08/29/2011 Ot 205.10 CHR ONIC MYELOID LEUKEMIA, W/O MENTION AC 12/06/2011 Ot 205.10 CHR ONIC MYELOID LEUKEMIA, W/O MENTION AC 12/06/2011 Ot 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, STAGE III (MODER 12/06/2011 Ot V58.69 OTH MED,LT,CURRENT USE 05/29/2012 Ot 205.10 CHR ONIC MYELOID LEUKEMIA, W/O MENTION AC 05/29/2012 Ot 285.9 ANEM IA NOS 05/29/2012 Ot 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, STAGE III (MODER 05/29/2012 Ot V58.69 OTH MED,LT,CURRENT USE 08/25/2012 RAJOTTE CRM ARCHITECT, EVELYN A V04.81 FLU DX (3 YRS AND ABOVE, IM) 08/25/2012 RAJOTTE CRM ARCHITECT, EVELYN A V04.81 FLU DX (3 YRS AND ABOVE, IM) 09/10/2012 Ot 205.10 CHR ONIC MYELOID LEUKEMIA, W/O MENTION AC 09/10/2012 Ot 285.9 ANEM IA NOS 09/10/2012 Ot 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, STAGE III (MODER 09/10/2012 Ot V58.69 OTH MED,LT,CURRENT USE 12/17/2012 Ot 205.10 CHR ONIC MYELOID LEUKEMIA, W/O MENTION AC 12/17/2012 Ot 285.9 ANEM IA NOS 12/17/2012 Ot 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, STAGE III (MODER 12/17/2012 Ot V58.69 OTH MED,LT,CURRENT USE 03/25/2013 CARLENE THRASHER Ot 205.10 CHRONIC MYELOID LEUKEMIA, W/O MENTION AC 03/25/2013 CARLENE THRASHER Ot 285.9 ANEMIA NOS 03/25/2013 PRICE, BOBAN N Ot 585.3 CHRONIC KIDNEY DISEASE, STAGE III (MODER 03/25/2013 PRICE, BOBAN N Ot V58.69 OTH MED,LT,CURRENT USE 06/03/2013 MARNIE BECKMAN, JHON Castillo Ot 205.10 CHRONIC MYELOID LEUKEMIA, W/O MENTION AC 06/03/2013 MARNIE BECKMAN, JHON Castillo Ot 569.69 OTH COLOST ENTEROSTOMY COMP 06/03/2013 MARNIE BECKMAN, JHON Castillo Ot 787.91 DIARRHEA 06/03/2013 MARNIE BECKMAN, JHON Castillo Ot 789.00 ABDOMINAL PAIN, UNSPECIFIED SITE 06/03/2013 MARNIE BECKMAN, JHON Castillo Ot V44.3 COLOSTOMY STATUS 06/24/2013 PRICE BOBAN N Ot 205.10 CHRONIC MYELOID LEUKEMIA, [...] N Ot V44.3 COLOSTOMY STATUS 07/03/2014 PRICE, CARLENE N Ot V58.69 OT MED,LT,CURRENT USE 10/17/2014 PRICE, BOBAN N Ot 205.10 10/17/2014 PRICE, BOBAN N Ot 280.9 10/17/2014 PRICE, BOBAN N Ot 585.3 10/17/2014 PRICE, BOBAN N Ot V44.3 10/17/2014 PRICE, BOBAN N Ot V58.69 10/18/2014 PRICE, BOBAN N Ot 205.10 10/18/2014 PRICE, BOBAN N Ot 280.9 10/18/2014 PRICE, BOBLIBRA N Ot 585.3 10/18/2014 PRICE, BOBAN N Ot V44.3 10/18/2014 PRICE, BOBAN N Ot V58.69 11/18/2014 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 Ot 205.10 11/18/2014 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 Ot 280.9 11/18/2014 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 Ot 585.3 11/18/2014 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 Ot V44.3 11/18/2014 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 Ot V58.69 12/09/2014 PRICE, BOBAN N Ot 205.10 12/09/2014 PRICE, BOBAN N Ot 280.9 12/09/2014 PRICE, BOBLIBRA N Ot 585.3 12/09/2014 PRICE BOBLIBRA N Ot V44.3 12/09/2014 PRICE, BOBAN N Ot V58.69 12/12/2014 MANDA BECKMAN, LEON Medrano Ot V76. 12 01/15/2015 PRICE, BOBAN N Ot 205.10 CHRONIC MYELOID LEUKEMIA, W/O MENTION AC 01/15/2015 PRICECARLENE DIAZ N Ot 280.9 IRON DEFIC ANEMIA NOS 01/15/2015 PRICE BOBAN N Ot 585.3 CHRONIC KIDNEY DISEASE, STAGE III (MODER 01/15/2015 PRICECARLENE N Ot V44.3 COLOSTOMY STATUS 01/15/2015 PRICE BOBAN N Ot V58.69 OTH MED,LT,CURRENT USE 02/04/2015 PRICE, BOBAN N Ot [...] PRICE, BOBAN N Ot V58.69 05/19/2015 PRICE, CARLENE N Ot 205.10 05/19/2015 PRICE, BOBLIBRA N Ot 280.9 05/19/2015 PRICECARLENE DIAZ N Ot 585.3 05/19/2015 PRICECARLENE DIAZ N Ot V44.3 05/19/2015 PRICECARLENE DIAZ N Ot V58.69 05/30/2015 PRICE, BOBLIBRA N Ot 205.10 05/30/2015 PRICE, BOBLIBRA N Ot 280.9 05/30/2015 PRICE, BOBLIBRA N Ot 585.3 05/30/2015 PRICECARLENE DIAZ N Ot V44.3 05/30/2015 PRICE, BOBLIBRA N Ot V58.69 07/16/2015 PRICE, BOBLIBRA N Ot 205.10 CHRONIC MYELOID LEUKEMIA, W/O MENTION AC 07/16/2015 CARLENE THRASHER N Ot 280.9 IRON DEFIC ANEMIA NOS 07/16/2015 PRICE CHARLENELIBRA N Ot 585.3 CHRONIC KIDNEY DISEASE, STAGE III (MODER 07/16/2015 CARLENE THRASHER N Ot V44.3 COLOSTOMY STATUS 07/16/2015 PRICECARLENE DIAZ N Ot V58.69 OTH MED,LT,CURRENT USE 11/18/2015 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 Ot C92.10 11/18/2015 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 Ot D50.0 11/18/2015 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 Ot Z79.899 12/12/2015 PRICECARLENE DIAZ N Ot C92.10 12/12/2015 PRICECARLENE N Ot D50.9 12/12/2015 PRICE, BOBAN N Ot N18.3 12/12/2015 PRICE, BOBAN N Ot Z79.899 01/01/2016 Ot Z12.31 01/14/2016 PRICECHARLENE DIAZAN N Ot C92.10 CHRONIC MYELOID LEUK, BCR/ABL-POSITIVE, 01/14/2016 PRICECHARLENE DIAZAN N Ot D50.9 IRON DEFICIENCY ANEMIA, UNSPECIFIED 01/14/2016 PRICECHARLENEAN N Ot N18.3 CHRONIC KIDNEY DISEASE, STAGE 3 (MODERAT 01/14/2016 PRICECHARLENE DIAZAN N Ot Z79.899 OTHER HATCH BOSS (CURRENT) DRUG THERAPY 04/15/2016 Ot 205.10 CHR ONIC MYELOID LEUKEMIA, W/O MENTION AC 04/15/2016 Ot 272.4 HYPE RLIPIDEMIA NEC/NOS 04/15/2016 Ot 205.10 CHR ONIC MYELOID LEUKEMIA, W/O MENTION AC 04/15/2016 Ot 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, STAGE III (MODER 04/15/2016 Ot V03.82 PRO PHYLACTIC VACC AGAINST STREPTOCOCCUS 04/15/2016 Ot V06.1 [id number], COMBINED [ 04/15/2016 Ot V44.3 COLO STOMY STATUS 04/15/2016 Ot V58.69 OTH MED,LT,CURRENT USE 04/15/2016 Ot V76.12 OTH SCREEN MAMMO- MALIGN NEOPLASM OF JAYLEEN 04/15/2016 Ot V76.12 OTH SCREEN MAMMO- MALIGN NEOPLASM OF JAYLEEN 04/15/2016 RUSSELL CARRENOP Ot 205.10 CHRONIC MYELOID LEUKEMIA, W/O MENTION AC 04/15/2016 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 Ot 280.9 IRON DEFIC ANEMIA NOS 04/15/2016 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 Ot 284.19 OTHER PANCYTOPENIA 04/15/2016 RUSSELL CARRENOP Ot 782.3 EDEMA 04/15/2016 RUSSELL CARRENO Ot V58.69 OTH MED,LT,CURRENT USE 04/15/2016 RUSSELL CARRENOP Ot 729.5 PAIN IN LIMB 04/15/2016 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 Ot 205.10 CHRONIC MYELOID LEUKEMIA, W/O MENTION AC 04/15/2016 RUSSELL CARRENOP Ot 280.9 IRON DEFIC ANEMIA NOS 04/15/2016 RUSSELL CARRENOP Ot 585.3 CHRONIC KIDNEY DISEASE, STAGE III (MODER 04/15/2016 RUSSELL CARRENO Ot V44.3 COLOSTOMY STATUS 04/15/2016 RUSSELL CARRENO Ot V58.69 OTH MED,LT,CURRENT USE 04/15/2016 MANDA BECKMAN, LEON Medrano Ot 793. 82 INCONCLUSIVE MAMMOGRAM 04/15/2016 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 Ot 205.10 CHRONIC MYELOID LEUKEMIA, W/O MENTION AC 04/15/2016 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 Ot 280.9 IRON DEFIC ANEMIA NOS 04/15/2016 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 Ot 585.3 CHRONIC KIDNEY DISEASE, STAGE III (MODER 04/15/2016 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 Ot V44.3 COLOSTOMY STATUS 04/15/2016 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 Ot V58.69 OTH MED,LT,CURRENT USE 04/15/2016 MANDA BECKMAN, LEON Medrano Ot V76. 12 OTH SCREEN MAMMO-MALIGN NEOPLASM OF JAYLEEN 04/15/2016 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 Ot C92.10 CHRONIC MYELOID LEUK, BCR/ABL-POSITIVE, 04/15/2016 RUSSELL CARRENOP Ot D50.0 IRON DEFICIENCY ANEMIA SECONDARY TO BLOO 04/15/2016 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 Ot Z79.899 OTHER RETIREMENT (CURRENT) DRUG THERAPY 04/15/2016 Ot Z12.31 ENC NTR SCREEN MAMMOGRAM FOR MALIGNANT NE 04/15/2016 CARLENE THRASHER Ot C92.10 CHRONIC MYELOID LEUK, BCR/ABL-POSITIVE, 04/15/2016 CARLENE THRASHER N Ot D50.9 IRON DEFICIENCY ANEMIA, UNSPECIFIED 04/15/2016 PRICECARLENE N Ot N18.3 CHRONIC KIDNEY DISEASE, STAGE 3 (MODERAT 04/15/2016 CARLENE THRASHER N Ot Z79.899 OTHER HATCH BOSS (CURRENT) DRUG THERAPY 04/16/2016 CARLENE THRASHER N Ot C92.10 CHRONIC MYELOID LEUK, BCR/ABL-POSITIVE, 04/16/2016 CARLENE THRASHER N Ot D50.9 IRON DEFICIENCY ANEMIA, UNSPECIFIED 04/16/2016 CARLENE THRASHER N Ot N18.3 CHRONIC KIDNEY DISEASE, STAGE 3 (MODERAT 04/16/2016 PRICECHARLENEAN N Ot Z79.899 OTHER RETIREMENT (CURRENT) DRUG THERAPY 05/18/2016 MANDA BECKMAN, LEON Medrano Ot R60. 0 LOCALIZED EDEMA 05/19/2016 Ot V76.12 OTH SCREEN MAMMO- MALIGN NEOPLASM OF JAYLEEN 05/19/2016 Ot V76.12 OTH SCREEN MAMMO- MALIGN NEOPLASM OF JAYLEEN 05/19/2016 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 Ot 205.10 CHRONIC MYELOID LEUKEMIA, W/O MENTION AC 05/19/2016 DAHIANA CARRENOAH S GERMINATION 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 Ot 280.9 IRON DEFIC ANEMIA NOS 05/19/2016 WAI DAHIANAGEE La GERMINATION 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 Ot 284.19 OTHER PANCYTOPENIA 05/19/2016 DAHIANA CARRENOGEE La GERMINATION 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 Ot 782.3 EDEMA 05/19/2016 CARRENORUSSELL GERMINATION 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 Ot V58.69 OTH MED,LT,CURRENT USE 05/19/2016 WAI RUSSELL La GERMINATION 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 Ot 729.5 PAIN IN LIMB 05/19/2016 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 Ot 205.10 CHRONIC MYELOID LEUKEMIA, W/O MENTION AC 05/19/2016 WAI RUSSELL La GERMINATION 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 Ot 280.9 IRON DEFIC ANEMIA NOS 05/19/2016 DAHIANA CARRENOGEE La GERMINATION 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 Ot 585.3 CHRONIC KIDNEY DISEASE, STAGE III (MODER 05/19/2016 WAI RUSSELL La GERMINATION 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 Ot V44.3 COLOSTOMY STATUS 05/19/2016 WAI RUSSELL Tovar GERMINATION 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 Ot V58.69 OTH MED,LT,CURRENT USE 05/19/2016 MANDA BECKMAN, LEON Medrano Ot 793. 82 INCONCLUSIVE MAMMOGRAM 05/19/2016 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 Ot 205.10 CHRONIC MYELOID LEUKEMIA, W/O MENTION AC 05/19/2016 DAHIANA CARRENOGEE La GERMINATION 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 Ot 280.9 IRON DEFIC ANEMIA NOS 05/19/2016 WAI RUSSELL Tovar GERMINATION 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 Ot 585.3 CHRONIC KIDNEY DISEASE, STAGE III (MODER 05/19/2016 WAI RUSSELL Tovar GERMINATION 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 Ot V44.3 COLOSTOMY STATUS 05/19/2016 DAHIANA CARRENOGEE La GERMINATION 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 Ot V58.69 OTH MED,LT,CURRENT USE 05/19/2016 MANDA BECKMAN, LEON Medrano Ot V76. 12 OTH SCREEN MAMMO-MALIGN NEOPLASM OF JAYLEEN 05/19/2016 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 Ot C92.10 CHRONIC MYELOID LEUK, BCR/ABL-POSITIVE, 05/19/2016 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 Ot D50.0 IRON DEFICIENCY ANEMIA SECONDARY TO BLOO 05/19/2016 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 Ot Z79.899 OTHER HATCH BOSS (CURRENT) DRUG THERAPY 05/19/2016 Ot Z12.31 ENC NTR SCREEN MAMMOGRAM FOR MALIGNANT NE 05/19/2016 PRICE, BOBAN N Ot C92.10 CHRONIC MYELOID LEUK, BCR/ABL-POSITIVE, 05/19/2016 PRICE, BOBAN N Ot D50.9 IRON DEFICIENCY ANEMIA, UNSPECIFIED 05/19/2016 PRICE, BOBAN N Ot N18.3 CHRONIC KIDNEY DISEASE, STAGE 3 (MODERAT 05/19/2016 PRICE, BOBAN N Ot Z79.899 OTHER HATCH BOSS (CURRENT) DRUG THERAPY 05/20/2016 MANDA BECKMAN, LEON Medrano Ot I10 ESSENTIAL (PRIMARY) HYPERTENSION 05/27/2016 PRICE, BOBAN N Ot C92.10 CHRONIC MYELOID LEUK, BCR/ABL-POSITIVE, 05/27/2016 PRICE, BOBAN N Ot D50.9 IRON DEFICIENCY ANEMIA, UNSPECIFIED 05/27/2016 PRICE, BOBAN N Ot N18.3 CHRONIC KIDNEY DISEASE, STAGE 3 (MODERAT 05/27/2016 PRICE, BOBAN N Ot Z79.899 OTHER RETIREMENT (CURRENT) DRUG THERAPY 06/11/2016 MANDA BECKMAN, LEON Medrano Ot I10 ESSENTIAL (PRIMARY) HYPERTENSION 07/14/2016 PRICE, BOBAN N Ot C92.10 CHRONIC MYELOID LEUK, BCR/ABL-POSITIVE, 07/14/2016 PRICE, BOBAN N Ot D50.9 IRON DEFICIENCY ANEMIA, UNSPECIFIED 07/14/2016 PRICE, BOBAN N Ot N18.3 CHRONIC KIDNEY DISEASE, STAGE 3 (MODERAT 07/14/2016 PRICE, BOBAN N Ot Z79.899 OTHER HATCH BOSS (CURRENT) DRUG THERAPY 07/15/2016 PRICE, BOBAN N Ot C92.10 CHRONIC MYELOID LEUK, BCR/ABL-POSITIVE, 07/15/2016 PRICE, BOBAN N Ot D50.9 IRON DEFICIENCY ANEMIA, UNSPECIFIED 07/15/2016 PRICE, BOBAN N Ot N18.3 CHRONIC KIDNEY DISEASE, STAGE 3 (MODERAT 07/15/2016 PRICE, BOBAN N Ot Z79.899 OTHER HATCH BOSS (CURRENT) DRUG THERAPY 10/19/2016 PRICE, BOBAN N Ot C92.10 CHRONIC MYELOID LEUK, BCR/ABL-POSITIVE, 10/19/2016 PRICE, BOBAN N Ot D50.9 IRON DEFICIENCY ANEMIA, UNSPECIFIED 10/19/2016 PRICE, BOBAN N Ot N18.3 CHRONIC KIDNEY DISEASE, STAGE 3 (MODERAT 10/19/2016 CARLENE THRASHER Ot Z79.899 OTHER RETIREMENT (CURRENT) DRUG THERAPY 11/03/2016 Ot V76.12 OTH SCREEN MAMMO- MALIGN NEOPLASM OF JAYLEEN 11/03/2016 Ot V76.12 OTH SCREEN MAMMO- MALIGN NEOPLASM OF JAYLEEN 11/03/2016 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 Ot 205.10 CHRONIC MYELOID LEUKEMIA, W/O MENTION AC 11/03/2016 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 Ot 280.9 IRON DEFIC ANEMIA NOS 11/03/2016 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 Ot 284.19 OTHER PANCYTOPENIA 11/03/2016 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 Ot 782.3 EDEMA 11/03/2016 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 Ot V58.69 OTH MED,LT,CURRENT USE 11/03/2016 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 Ot 729.5 PAIN IN LIMB 11/03/2016 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 Ot 205.10 CHRONIC MYELOID LEUKEMIA, W/O MENTION AC 11/03/2016 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 Ot 280.9 IRON DEFIC ANEMIA NOS 11/03/2016 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 Ot 585.3 CHRONIC KIDNEY DISEASE, STAGE III (MODER 11/03/2016 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 Ot V44.3 COLOSTOMY STATUS 11/03/2016 RUSSELL CARRENOP Ot V58.69 OTH MED,LT,CURRENT USE 11/03/2016 LEON HOLMAN MD Ot 793. 82 INCONCLUSIVE MAMMOGRAM 11/03/2016 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 Ot 205.10 CHRONIC MYELOID LEUKEMIA, W/O MENTION AC 11/03/2016 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 Ot 280.9 IRON DEFIC ANEMIA NOS 11/03/2016 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 Ot 585.3 CHRONIC KIDNEY DISEASE, STAGE III (MODER 11/03/2016 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 Ot V44.3 COLOSTOMY STATUS 11/03/2016 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 Ot V58.69 OTH MED,LT,CURRENT USE 11/03/2016 LEON HOLMAN MD Ot V76. 12 OTH SCREEN MAMMO-MALIGN NEOPLASM OF JAYLEEN 11/03/2016 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 Ot C92.10 CHRONIC MYELOID LEUK, BCR/ABL-POSITIVE, 11/03/2016 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 Ot D50.0 IRON DEFICIENCY ANEMIA SECONDARY TO BLOO 11/03/2016 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 Ot Z79.899 OTHER RETIREMENT (CURRENT) DRUG THERAPY 11/03/2016 Ot Z12.31 ENC NTR SCREEN MAMMOGRAM FOR MALIGNANT NE 11/03/2016 MANDA BECKMAN, LEON Medrano Ot I10 ESSENTIAL (PRIMARY) HYPERTENSION 11/03/2016 CARLENE THRASHER N Ot C92.10 CHRONIC MYELOID LEUK, BCR/ABL-POSITIVE, 11/03/2016 PRICE, BOBLIBRA N Ot D50.9 IRON DEFICIENCY ANEMIA, UNSPECIFIED 11/03/2016 CARLENE THRASHER N Ot N18.3 CHRONIC KIDNEY DISEASE, STAGE 3 (MODERAT 11/03/2016 PRICE, BOBAN N Ot Z79.899 OTHER RETIREMENT (CURRENT) DRUG THERAPY 11/04/2016 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 Ot M79.605 PAIN IN LEFT LEG 11/04/2016 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 Ot M79.89 OTHER SPECIFIED SOFT TISSUE DISORDERS 11/22/2016 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 Ot M79.605 PAIN IN LEFT LEG 11/22/2016 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 Ot M79.89 OTHER SPECIFIED SOFT TISSUE DISORDERS 11/24/2016 CARLENE THRASHER N Ot C92.10 CHRONIC MYELOID LEUK, BCR/ABL-POSITIVE, 11/24/2016 CARLENE THRASHER N Ot D50.9 IRON DEFICIENCY ANEMIA, UNSPECIFIED 11/24/2016 CARLENE THRASHER N Ot N18.3 CHRONIC KIDNEY DISEASE, STAGE 3 (MODERAT 11/24/2016 PRICE, BOBAN N Ot Z79.899 OTHER HATCH BOSS (CURRENT) DRUG THERAPY 01/13/2017 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 Ot N18.3 CHRONIC KIDNEY DISEASE, STAGE 3 (MODERAT 01/16/2017 CARLENE THRASHER N Ot C92.10 CHRONIC MYELOID LEUK, BCR/ABL-POSITIVE, 01/16/2017 CARLENE THRASHER N Ot D50.9 IRON DEFICIENCY ANEMIA, UNSPECIFIED 01/16/2017 CARLENE THRASHER N Ot N18.3 CHRONIC KIDNEY DISEASE, STAGE 3 (MODERAT 01/16/2017 CARLENE THRASHER Ot Z79.899 OTHER RETIREMENT (CURRENT) DRUG THERAPY 01/21/2017 Ot V76.12 OTH SCREEN MAMMO- MALIGN NEOPLASM OF JAYLEEN 01/21/2017 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 Ot 205.10 CHRONIC MYELOID LEUKEMIA, W/O MENTION AC 01/21/2017 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 Ot 280.9 IRON DEFIC ANEMIA NOS 01/21/2017 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 Ot 284.19 OTHER PANCYTOPENIA 01/21/2017 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 Ot 782.3 EDEMA 01/21/2017 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 Ot V58.69 OTH MED,LT,CURRENT USE 01/21/2017 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 Ot 729.5 PAIN IN LIMB 01/21/2017 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 Ot 205.10 CHRONIC MYELOID LEUKEMIA, W/O MENTION AC 01/21/2017 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 Ot 280.9 IRON DEFIC ANEMIA NOS 01/21/2017 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 Ot 585.3 CHRONIC KIDNEY DISEASE, STAGE III (MODER 01/21/2017 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 Ot V44.3 COLOSTOMY STATUS 01/21/2017 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 Ot V58.69 OTH MED,LT,CURRENT USE 01/21/2017 MANDA BECKMAN, LEON Medrano Ot 793. 82 INCONCLUSIVE MAMMOGRAM 01/21/2017 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 Ot 205.10 CHRONIC MYELOID LEUKEMIA, W/O MENTION AC 01/21/2017 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 Ot 280.9 IRON DEFIC ANEMIA NOS 01/21/2017 RUSSELL CARRENO S GERMINATION 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 Ot 585.3 CHRONIC KIDNEY DISEASE, STAGE III (MODER 01/21/2017 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 Ot V44.3 COLOSTOMY STATUS 01/21/2017 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 Ot V58.69 OTH MED,LT,CURRENT USE 01/21/2017 MANDA BECKMAN, LEON Medrano Ot V76. 12 OTH SCREEN MAMMO-MALIGN NEOPLASM OF JAYLEEN 01/21/2017 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 Ot C92.10 CHRONIC MYELOID LEUK, BCR/ABL-POSITIVE, 01/21/2017 RUSSELL CARRENO S GERMINATION 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 Ot D50.0 IRON DEFICIENCY ANEMIA SECONDARY TO BLOO 01/21/2017 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 Ot Z79.899 OTHER HATCH BOSS (CURRENT) DRUG THERAPY 01/21/2017 Ot Z12.31 ENC NTR SCREEN MAMMOGRAM FOR MALIGNANT NE 01/21/2017 MANDA BECKMAN, LEON Medrano Ot I10 ESSENTIAL (PRIMARY) HYPERTENSION 01/21/2017 CARRENORUSSELL Tovar GERMINATION 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 Ot M79.605 PAIN IN LEFT LEG 01/21/2017 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 Ot M79.89 OTHER SPECIFIED SOFT TISSUE DISORDERS 01/21/2017 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 Ot N18.3 CHRONIC KIDNEY DISEASE, STAGE 3 (MODERAT 01/21/2017 PRICE, BOBAN N Ot C92.10 CHRONIC MYELOID LEUK, BCR/ABL-POSITIVE, 01/21/2017 PRICE, BOBAN N Ot D50.9 IRON DEFICIENCY ANEMIA, UNSPECIFIED 01/21/2017 PRICE BOBAN N Ot N18.3 CHRONIC KIDNEY DISEASE, STAGE 3 (MODERAT 01/21/2017 PRICE, BOBAN N Ot Z79.899 OTHER HATCH BOSS (CURRENT) DRUG THERAPY 02/02/2017 MANDA BECKMAN, LEON Medrano Ot Z12. 31 ENCNTR SCREEN MAMMOGRAM FOR MALIGNANT NE 04/20/2017 PRICE, BOBAN N Ot C92.10 CHRONIC MYELOID LEUK, BCR/ABL-POSITIVE, 04/20/2017 PRICE, BOBAN N Ot D50.9 IRON DEFICIENCY ANEMIA, UNSPECIFIED 04/20/2017 PRICE BOBAN N Ot N18.3 CHRONIC KIDNEY DISEASE, STAGE 3 (MODERAT 04/20/2017 PRICE, BOBAN N Ot Z79.899 OTHER RETIREMENT (CURRENT) DRUG THERAPY 05/26/2017 PRICE, BOBAN N Ot C92.10 CHRONIC MYELOID LEUK, BCR/ABL-POSITIVE, 05/26/2017 PRICE, BOBAN N Ot D50.9 IRON DEFICIENCY ANEMIA, UNSPECIFIED 05/26/2017 PRICE, BOBAN N Ot N18.3 CHRONIC KIDNEY DISEASE, STAGE 3 (MODERAT 05/26/2017 PRICE, BOBAN N Ot Z79.899 OTHER HATCH BOSS (CURRENT) DRUG THERAPY 07/17/2017 PRICE, BOBAN N Ot C92.10 CHRONIC MYELOID LEUK, BCR/ABL-POSITIVE, 07/17/2017 PRICE, BOBAN N Ot D50.9 IRON DEFICIENCY ANEMIA, UNSPECIFIED 07/17/2017 PRICE, BOBAN N Ot N18.3 CHRONIC KIDNEY DISEASE, STAGE 3 (MODERAT 07/17/2017 PRICE, BOBAN N Ot Z79.899 OTHER RETIREMENT (CURRENT) DRUG THERAPY 10/18/2017 PRICE, BOBAN N Ot C92.10 CHRONIC MYELOID LEUK, BCR/ABL-POSITIVE, 10/18/2017 PRICE, BOBAN N Ot D50.9 IRON DEFICIENCY ANEMIA, UNSPECIFIED 10/18/2017 PRICE, BOBAN N Ot N18.3 CHRONIC KIDNEY DISEASE, STAGE 3 (MODERAT 10/18/2017 PRICE, BOBAN N Ot Z79.899 OTHER HATCH BOSS (CURRENT) DRUG THERAPY 11/24/2017 PRICE, BOBAN N Ot C92.10 CHRONIC MYELOID LEUK, BCR/ABL-POSITIVE, 11/24/2017 PRICE, BOBAN N Ot D50.9 IRON DEFICIENCY ANEMIA, UNSPECIFIED 11/24/2017 PRICE, BOBAN N Ot N18.3 CHRONIC KIDNEY DISEASE, STAGE 3 (MODERAT 11/24/2017 PRICE, BOBAN N Ot Z79.899 OTHER HATCH BOSS (CURRENT) DRUG THERAPY 01/15/2018 PRICE, BOBAN N Ot C92.10 CHRONIC MYELOID LEUK, BCR/ABL-POSITIVE, 01/15/2018 PRICE, BOBAN N Ot D50.9 IRON DEFICIENCY ANEMIA, UNSPECIFIED 01/15/2018 PRICE, BOBAN N Ot N18.3 CHRONIC KIDNEY DISEASE, STAGE 3 (MODERAT 01/15/2018 PRICE, BOBAN N Ot Z79.899 OTHER RETIREMENT (CURRENT) DRUG THERAPY 01/17/2018 PRICE, BOBAN N Ot C92.10 CHRONIC MYELOID LEUK, BCR/ABL-POSITIVE, 01/17/2018 PRICE, BOBAN N Ot D50.9 IRON DEFICIENCY ANEMIA, UNSPECIFIED 01/17/2018 PRICE, BOBAN N Ot N18.3 CHRONIC KIDNEY DISEASE, STAGE 3 (MODERAT 01/17/2018 PRICE, BOBAN N Ot Z79.899 OTHER RETIREMENT (CURRENT) DRUG THERAPY 01/26/2018 MANDA BECKMAN, LEON Medrano Ot Z12. 31 ENCNTR SCREEN MAMMOGRAM FOR MALIGNANT NE 02/08/2018 LEON HOLMAN MD Ot Z12. 31 ENCNTR SCREEN MAMMOGRAM FOR MALIGNANT NE 03/08/2018 LOEN HOLMAN MD Ot R10. 9 UNSPECIFIED ABDOMINAL PAIN 03/08/2018 LEON HOLMAN MD Ot Z93. 3 COLOSTOMY STATUS 03/08/2018 LEON HOLMAN MD Ot R10. 9 UNSPECIFIED ABDOMINAL PAIN 03/08/2018 LEON HOLMAN MD Ot Z93. 3 COLOSTOMY STATUS 03/08/2018 VAMSI LOVE MD Ot D72.829 ELEVATED WHITE BLOOD CELL COUNT, UNSPECI 03/08/2018 VAMSI LOVE MD Ot S91.155A OPEN BITE OF LEFT LESSER TOE(S) W/O SHAWNA 03/08/2018 VAMSI LOVE MD Ot S92.512A DISP FX OF PROXIMAL PHALANX OF LEFT LESS 03/08/2018 VAMSI LOVE MD Ot W54.0XXA BITTEN BY DOG, INITIAL ENCOUNTER 03/08/2018 VAMSI LOVE MD Ot Z87. 19 PERSONAL HISTORY OF OTHER DISEASES OF 03/08/2018 VAMSI LOVE MD Ot Z87. 42 PERSONAL HISTORY OF OTH DISEASES OF THE 03/08/2018 VAMSI LOVE MD Ot Z88. 2 ALLERGY STATUS TO SULFONAMIDES STATUS 03/08/2018 VAMSI LOVE MD Ot Z88. 8 ALLERGY STATUS TO OTH DRUG/MEDS/BIOL SUB 03/10/2018 VAMSI LOVE MD Ot D72.829 ELEVATED WHITE BLOOD CELL COUNT, UNSPECI 03/10/2018 VAMSI LOVE MD Ot S91.155A OPEN BITE OF LEFT LESSER TOE(S) W/O SHAWNA 03/10/2018 VAMSI LOVE MD Ot S92.512A DISP FX OF PROXIMAL PHALANX OF LEFT LESS 03/10/2018 VAMSI LOVE MD Ot W54.0XXA BITTEN BY DOG, INITIAL ENCOUNTER 03/10/2018 VAMSI LOVE MD Ot Z87. 19 PERSONAL HISTORY OF OTHER DISEASES OF 03/10/2018 VAMSI LOVE MD Ot Z87. 42 PERSONAL HISTORY OF OTH DISEASES OF THE 03/10/2018 VAMSI LOVE MD Ot Z88. 2 ALLERGY STATUS TO SULFONAMIDES STATUS 03/10/2018 KATE BECKMAN, VAMSI Medrano Ot Z88. 8 ALLERGY STATUS TO OTH DRUG/MEDS/BIOL SUB 03/22/2018 MANDA BECKMAN, LEON Medrano Ot R10. 9 UNSPECIFIED ABDOMINAL PAIN 03/22/2018 MANDA BECKMAN, LEON Medrano Ot Z93. 3 COLOSTOMY STATUS 05/04/2018 PRICE, BOBAN N Ot C92.10 CHRONIC MYELOID LEUK, BCR/ABL-POSITIVE, 05/04/2018 PRICE, BOBAN N Ot D50.9 IRON DEFICIENCY ANEMIA, UNSPECIFIED 05/04/2018 PRICE, BOBAN N Ot N18.3 CHRONIC KIDNEY DISEASE, STAGE 3 (MODERAT 05/04/2018 PRICE, BOBAN N Ot Z79.899 OTHER HATCH BOSS (CURRENT) DRUG THERAPY 07/03/2018 PRICE, BOBAN N Ot C92.10 CHRONIC MYELOID LEUK, BCR/ABL-POSITIVE, 07/03/2018 PRICE, BOBAN N Ot D50.9 IRON DEFICIENCY ANEMIA, UNSPECIFIED 07/03/2018 PRICE, BOBAN N Ot N18.3 CHRONIC KIDNEY DISEASE, STAGE 3 (MODERAT 07/03/2018 PRICE, BOBAN N Ot Z79.899 OTHER HATCH BOSS (CURRENT) DRUG THERAPY 07/03/2018 KEYUR BECKMAN, KEN Gross Ot Z01.818 ENCOUNTER FOR OTHER PREPROCEDURAL EXAMIN 07/04/2018 KEN BAER MD Ot Z01.818 ENCOUNTER FOR OTHER PREPROCEDURAL EXAMIN 07/10/2018 KEYUR BECKMAN, KEN Gross Ot C92.90 MYELOID LEUKEMIA, UNSPECIFIED, NOT HAVIN 07/10/2018 KEYUR BECKMAN, KEN Gross Ot E78.00 PURE HYPERCHOLESTEROLEMIA, UNSPECIFIED 07/10/2018 KEYUR BECKMAN, KEN Gross Ot I1 0 ESSENTIAL (PRIMARY) HYPERTENSION 07/10/2018 KEYUR BECKMAN, KEN Gross Ot Z12.11 ENCOUNTER FOR SCREENING FOR MALIGNANT NE 07/10/2018 KEYUR BECKMAN, KEN Gross Ot Z79.899 OTHER RETIREMENT (CURRENT) DRUG THERAPY 07/10/2018 KEYUR BECKMAN, KEN Gross Ot Z80.0 FAMILY HISTORY OF MALIGNANT NEOPLASM OF 07/10/2018 KEYUR BECKMAN, KEN Gross Ot Z86.010 PERSONAL HISTORY OF COLONIC POLYPS 07/10/2018 KEN BAER MD, Ot Z93.3 COLOSTOMY STATUS 07/12/2018 KEN BAER MD Ot C92.90 MYELOID LEUKEMIA, UNSPECIFIED, NOT HAVIN 07/12/2018 KEN BAER MD Ot E78.00 PURE HYPERCHOLESTEROLEMIA, UNSPECIFIED 07/12/2018 KEN BAER MD Ot I1 0 ESSENTIAL (PRIMARY) HYPERTENSION 07/12/2018 KEN BAER MD Ot Z12.11 ENCOUNTER FOR SCREENING FOR MALIGNANT NE 07/12/2018 KEN BAER MD Ot Z79.899 OTHER HATCH BOSS (CURRENT) DRUG THERAPY 07/12/2018 KEN BAER MD Ot Z80.0 FAMILY HISTORY OF MALIGNANT NEOPLASM OF 07/12/2018 KEN BAER MD Ot Z86.010 PERSONAL HISTORY OF COLONIC POLYPS 07/12/2018 KEN BAER MD Ot Z93.3 COLOSTOMY STATUS 07/25/2018 KEN BAER MD Ot C92.90 MYELOID LEUKEMIA, UNSPECIFIED, NOT HAVIN 07/25/2018 KEN BAER MD Ot E78.00 PURE HYPERCHOLESTEROLEMIA, UNSPECIFIED 07/25/2018 KEN BAER MD Ot I1 0 ESSENTIAL (PRIMARY) HYPERTENSION 07/25/2018 KEN BAER MD Ot Z12.11 ENCOUNTER FOR SCREENING FOR MALIGNANT NE 07/25/2018 KEN BAER MD Ot Z79.899 OTHER RETIREMENT (CURRENT) DRUG THERAPY 07/25/2018 KEN BAER MD Ot Z80.0 FAMILY HISTORY OF MALIGNANT NEOPLASM OF 07/25/2018 KEN BAER MD Ot Z86.010 PERSONAL HISTORY OF COLONIC POLYPS 07/25/2018 KEN BAER MD Ot Z93.3 COLOSTOMY STATUS 08/16/2018 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 Ot 205.10 CHRONIC MYELOID LEUKEMIA, W/O MENTION AC 08/16/2018 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 Ot 280.9 IRON DEFIC ANEMIA NOS 08/16/2018 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 Ot 284.19 OTHER PANCYTOPENIA 08/16/2018 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 Ot 782.3 EDEMA 08/16/2018 RUSSELL CARRENOP Ot V58.69 OT MED,LT,CURRENT USE 08/16/2018 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 Ot 729.5 PAIN IN LIMB 08/16/2018 CARRENORUSSELL Tovar GERMINATION 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 Ot 205.10 CHRONIC MYELOID LEUKEMIA, W/O MENTION AC 08/16/2018 WAIRUSSELL GERMINATION 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 Ot 280.9 IRON DEFIC ANEMIA NOS 08/16/2018 CARRENORUSSELL Tovar GERMINATION 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 Ot 585.3 CHRONIC KIDNEY DISEASE, STAGE III (MODER 08/16/2018 DAHIANA CARRENOGEE Tovar GERMINATION 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 Ot V44.3 COLOSTOMY STATUS 08/16/2018 WAI RUSSELL Tvoar GERMINATION 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 Ot V58.69 OTH MED,LT,CURRENT USE 08/16/2018 MANDA BECKMAN, LEON Medrano Ot 793. 82 INCONCLUSIVE MAMMOGRAM 08/16/2018 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 Ot 205.10 CHRONIC MYELOID LEUKEMIA, W/O MENTION AC 08/16/2018 WAI RUSSELL Tovar GERMINATION 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 Ot 280.9 IRON DEFIC ANEMIA NOS 08/16/2018 WAI RUSSELL Tovar GERMINATION 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 Ot 585.3 CHRONIC KIDNEY DISEASE, STAGE III (MODER 08/16/2018 DAHIANA CARRENOGEE La GERMINATION 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 Ot V44.3 COLOSTOMY STATUS 08/16/2018 WAI RUSSELL Tovar GERMINATION 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 Ot V58.69 OTH MED,LT,CURRENT USE 08/16/2018 MANDA BECKMAN, LEON Medrano Ot V76. 12 OTH SCREEN MAMMO-MALIGN NEOPLASM OF JAYLEEN 08/16/2018 DAHIANA CARRENOGEE Tovar GERMINATION 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 Ot C92.10 CHRONIC MYELOID LEUK, BCR/ABL-POSITIVE, 08/16/2018 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 Ot D50.0 IRON DEFICIENCY ANEMIA SECONDARY TO BLOO 08/16/2018 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 Ot Z79.899 OTHER HATCH BOSS (CURRENT) DRUG THERAPY 08/16/2018 Ot Z12.31 ENC NTR SCREEN MAMMOGRAM FOR MALIGNANT NE 08/16/2018 MANDA BECKMAN, LEON Medrano Ot I10 ESSENTIAL (PRIMARY) HYPERTENSION 08/16/2018 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 Ot M79.605 PAIN IN LEFT LEG 08/16/2018 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 Ot M79.89 OTHER SPECIFIED SOFT TISSUE DISORDERS 08/16/2018 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 Ot N18.3 CHRONIC KIDNEY DISEASE, STAGE 3 (MODERAT 08/16/2018 LEON HOLMAN MD, Ot Z12. 31 ENCNTR SCREEN MAMMOGRAM FOR MALIGNANT NE 08/16/2018 LEON HOLMAN MD, Ot Z12. 31 ENCNTR SCREEN MAMMOGRAM FOR MALIGNANT NE 08/16/2018 LEON HOLMAN MD, Ot R10. 9 UNSPECIFIED ABDOMINAL PAIN 08/16/2018 LEON HOLMAN MD, Ot Z93. 3 COLOSTOMY STATUS 08/16/2018 CARLENE THRASHER Ot C92.10 CHRONIC MYELOID LEUK, BCR/ABL-POSITIVE, 08/16/2018 CARLENE THRASHER Ot D50.9 IRON DEFICIENCY ANEMIA, UNSPECIFIED 08/16/2018 CARLENE THRASHER Ot N18.3 CHRONIC KIDNEY DISEASE, STAGE 3 (MODERAT 08/16/2018 CARLENE THRASHER Ot Z79.899 OTHER RETIREMENT (CURRENT) DRUG THERAPY 08/16/2018 LEON HOLMAN MD, Ot M85. 88 OTH DISRD OF BONE DENSITY AND STRUCTURE, 08/16/2018 LEON HOLMAN MD, Ot T14.8XXA OTHER INJURY OF UNSPECIFIED BODY REGION, 08/21/2018 LEON HOLMAN MD, Ot E07. 89 OTHER SPECIFIED DISORDERS OF THYROID 08/31/2018 LEON HOLMAN MD, Ot E07. 89 OTHER SPECIFIED DISORDERS OF THYROID 09/07/2018 LEON HOLMAN MD, Ot E04. 2 NONTOXIC MULTINODULAR GOITER 09/22/2018 LEON HOLMAN MD, Ot E04. 2 NONTOXIC MULTINODULAR GOITER 11/30/2018 CARLENE THRASHER Ot C92.10 CHRONIC MYELOID LEUK, BCR/ABL-POSITIVE, 11/30/2018 CARLENE THRASHER Ot D50.9 IRON DEFICIENCY ANEMIA, UNSPECIFIED 11/30/2018 CARLENE THRASHER Ot N18.3 CHRONIC KIDNEY DISEASE, STAGE 3 (MODERAT 11/30/2018 CARLENE THRASHER Ot Z79.899 OTHER HATCH BOSS (CURRENT) DRUG THERAPY 12/19/2018 LEON HOLMAN MD, Ot E04. 2 NONTOXIC MULTINODULAR GOITER 01/05/2019 LEON HOLMAN MD, Ot E04. 2 NONTOXIC MULTINODULAR GOITER 01/10/2019 PRICE, BOBAN N Ot C92.10 CHRONIC MYELOID LEUK, BCR/ABL-POSITIVE, 01/10/2019 PRICECHARLENEAN N Ot D50.9 IRON DEFICIENCY ANEMIA, UNSPECIFIED 01/10/2019 PRICE BOBAN N Ot N18.3 CHRONIC KIDNEY DISEASE, STAGE 3 (MODERAT 01/10/2019 PRICE BOBAN N Ot Z79.899 OTHER HATCH BOSS (CURRENT) DRUG THERAPY 01/11/2019 PRICE, BOBAN N Ot C92.10 CHRONIC MYELOID LEUK, BCR/ABL-POSITIVE, 01/11/2019 PRICE, BOBAN N Ot D50.9 IRON DEFICIENCY ANEMIA, UNSPECIFIED 01/11/2019 PRICE, BOBAN N Ot N18.3 CHRONIC KIDNEY DISEASE, STAGE 3 (MODERAT 01/11/2019 PRICE, BOBAN N Ot Z79.899 OTHER HATCH BOSS (CURRENT) DRUG THERAPY 01/11/2019 KEYUR BECKMAN, KEN Gross Ot Z01.818 ENCOUNTER FOR OTHER PREPROCEDURAL EXAMIN 01/11/2019 CARLENE THRASHER N Ot C92.10 CHRONIC MYELOID LEUK, BCR/ABL-POSITIVE, 01/11/2019 PRICE, BOBAN N Ot D50.9 IRON DEFICIENCY ANEMIA, UNSPECIFIED 01/11/2019 PRICE, BOBLIBRA N Ot N18.3 CHRONIC KIDNEY DISEASE, STAGE 3 (MODERAT 01/11/2019 PRICE, BOBAN N Ot Z79.899 OTHER HATCH BOSS (CURRENT) DRUG THERAPY 01/12/2019 KEYUR BECKMAN, KEN Gross Ot Z01.818 ENCOUNTER FOR OTHER PREPROCEDURAL EXAMIN 01/18/2019 KEYUR BECKMAN, KEN Gross Ot C92.10 CHRONIC MYELOID LEUK, BCR/ABL-POSITIVE, 01/18/2019 KEYUR BECKMAN, KEN Gross Ot D50.0 IRON DEFICIENCY ANEMIA SECONDARY TO BLOO 01/18/2019 KEYUR BECKMAN, KEN Gross Ot E04.1 NONTOXIC SINGLE THYROID NODULE 01/18/2019 KEYUR BECKMAN, KEN Gross Ot E78.00 PURE HYPERCHOLESTEROLEMIA, UNSPECIFIED 01/18/2019 KEYUR BECKMAN, KEN Gross Ot E78.5 HYPERLIPIDEMIA, UNSPECIFIED 01/18/2019 KEYUR BECKMAN, KEN Gross Ot I12.9 HYPERTENSIVE CHRONIC KIDNEY DISEASE W ST 01/18/2019 KEYUR BECKMAN, KEN Gross Ot N18.9 CHRONIC KIDNEY DISEASE, UNSPECIFIED 01/18/2019 KEN BAER MD Ot Z11.2 ENCOUNTER FOR SCREENING FOR OTHER BACTER 01/18/2019 KEN BAER MD Ot Z79.899 OTHER HATCH BOSS (CURRENT) DRUG THERAPY 01/18/2019 KEN BAER MD Ot Z80.0 FAMILY HISTORY OF MALIGNANT NEOPLASM OF 01/18/2019 KEN BAER MD Ot Z88.2 ALLERGY STATUS TO SULFONAMIDES STATUS 01/22/2019 KEN BAER MD Ot C92.10 CHRONIC MYELOID LEUK, BCR/ABL-POSITIVE, 01/22/2019 KEN BAER MD Ot D50.0 IRON DEFICIENCY ANEMIA SECONDARY TO BLOO 01/22/2019 KEN BAER MD Ot E04.1 NONTOXIC SINGLE THYROID NODULE 01/22/2019 KEN BAER MD Ot E78.00 PURE HYPERCHOLESTEROLEMIA, UNSPECIFIED 01/22/2019 KEN BAER MD Ot E78.5 HYPERLIPIDEMIA, UNSPECIFIED 01/22/2019 KEN BAER MD Ot I12.9 HYPERTENSIVE CHRONIC KIDNEY DISEASE W ST 01/22/2019 KEN BAER MD Ot N18.9 CHRONIC KIDNEY DISEASE, UNSPECIFIED 01/22/2019 KEN BAER MD Ot Z11.2 ENCOUNTER FOR SCREENING FOR OTHER BACTER 01/22/2019 KEN BAER MD Ot Z79.899 OTHER RETIREMENT (CURRENT) DRUG THERAPY 01/22/2019 KEN BAER MD Ot Z80.0 FAMILY HISTORY OF MALIGNANT NEOPLASM OF 01/22/2019 KEN BAER MD Ot Z88.2 ALLERGY STATUS TO SULFONAMIDES STATUS 01/24/2019 KEN BAER MD Ot C92.10 CHRONIC MYELOID LEUK, BCR/ABL-POSITIVE, 01/24/2019 KEN BAER MD Ot D50.0 IRON DEFICIENCY ANEMIA SECONDARY TO BLOO 01/24/2019 KEN BAER MD Ot E04.1 NONTOXIC SINGLE THYROID NODULE 01/24/2019 KEN BAER MD Ot E78.00 PURE HYPERCHOLESTEROLEMIA, UNSPECIFIED 01/24/2019 KEN BAER MD Ot E78.5 HYPERLIPIDEMIA, UNSPECIFIED 01/24/2019 KEN BAER MD Ot I12.9 HYPERTENSIVE CHRONIC KIDNEY DISEASE W ST 01/24/2019 KEN BAER MD Ot N18.9 CHRONIC KIDNEY DISEASE, UNSPECIFIED 01/24/2019 KEN BAER MD Ot Z11.2 ENCOUNTER FOR SCREENING FOR OTHER BACTER 01/24/2019 KEN BAER MD Ot Z79.899 OTHER RETIREMENT (CURRENT) DRUG THERAPY 01/24/2019 KEN BAER MD Ot Z80.0 FAMILY HISTORY OF MALIGNANT NEOPLASM OF 01/24/2019 KEN BAER MD Ot Z88.2 ALLERGY STATUS TO SULFONAMIDES STATUS 02/19/2019 CARLENE THRASHER Ot C92.10 CHRONIC MYELOID LEUK, BCR/ABL-POSITIVE, 02/19/2019 CARLENE THRASHER Ot D50.9 IRON DEFICIENCY ANEMIA, UNSPECIFIED 02/19/2019 CARLENE THRASHER Ot N18.3 CHRONIC KIDNEY DISEASE, STAGE 3 (MODERAT 02/19/2019 CARLENE THRASHER Ot Z79.899 OTHER HATCH BOSS (CURRENT) DRUG THERAPY 02/21/2019 LEON HOLMAN MD Ot Z12. 31 ENCNTR SCREEN MAMMOGRAM FOR MALIGNANT NE 03/05/2019 KEN BAER MD Ot Z0 9 ENCNTR FOR F/U EXAM AFT TRTMT FOR COND O 03/05/2019 KEN BAER MD Ot Z98.890 OTHER SPECIFIED POSTPROCEDURAL STATES 03/07/2019 LEON HOLMAN MD Ot Z12. 31 ENCNTR SCREEN MAMMOGRAM FOR MALIGNANT NE 03/15/2019 KEN BAER MD Ot Z0 9 ENCNTR FOR F/U EXAM AFT TRTMT FOR COND O 03/15/2019 KEN BAER MD Ot Z98.890 OTHER SPECIFIED POSTPROCEDURAL STATES 05/16/2019 CARLENE THRASHER Ot C92.10 CHRONIC MYELOID LEUK, BCR/ABL-POSITIVE, 05/16/2019 CARLENE THRASHER Ot D50.9 IRON DEFICIENCY ANEMIA, UNSPECIFIED 05/16/2019 CARLENE THRASHER Ot N18.3 CHRONIC KIDNEY DISEASE, STAGE 3 (MODERAT 05/16/2019 CARLENE THRASHER Ot Z79.899 OTHER HATCH BOSS (CURRENT) DRUG THERAPY 05/21/2019 CARLENE THARSHER Ot C92.10 CHRONIC MYELOID LEUK, BCR/ABL-POSITIVE, 05/21/2019 PRICE, BOBAN N Ot D50.9 IRON DEFICIENCY ANEMIA, UNSPECIFIED 05/21/2019 PRICE, BOBAN N Ot N18.3 CHRONIC KIDNEY DISEASE, STAGE 3 (MODERAT 05/21/2019 PRICE, BOBAN N Ot Z79.899 OTHER HATCH BOSS (CURRENT) DRUG THERAPY 08/21/2019 PRICE, BOBAN N Ot C92.10 CHRONIC MYELOID LEUK, BCR/ABL-POSITIVE, 08/21/2019 PRICE, BOBAN N Ot D50.9 IRON DEFICIENCY ANEMIA, UNSPECIFIED 08/21/2019 PRICE, BOBAN N Ot N18.3 CHRONIC KIDNEY DISEASE, STAGE 3 (MODERAT 08/21/2019 PRICE, BOBAN N Ot Z79.899 OTHER HATCH BOSS (CURRENT) DRUG THERAPY 08/29/2019 PRICE, BOBAN N Ot C92.10 CHRONIC MYELOID LEUK, BCR/ABL-POSITIVE, 08/29/2019 PRICE, BOBAN N Ot D50.9 IRON DEFICIENCY ANEMIA, UNSPECIFIED 08/29/2019 PRICE, BOBAN N Ot N18.3 CHRONIC KIDNEY DISEASE, STAGE 3 (MODERAT 08/29/2019 PRICE, BOBAN N Ot Z79.899 OTHER HATCH BOSS (CURRENT) DRUG THERAPY 10/01/2019 MANDA BECKMAN, LEON Medrano Ot 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 07 SPINAL STENOSIS, LUMBOSACRAL REGION 10/26/2019 LEON HOLMAN MD Ot I10 ESSENTIAL (PRIMARY) HYPERTENSION 10/26/2019 LEON HOLMAN MD Ot M54. 16 RADICULOPATHY, LUMBAR REGION 10/26/2019 LEON HOLMAN MD, Ot Z85.828 PERSONAL HISTORY OF OTHER MALIGNANT NEOP 10/26/2019 LEON HOLMAN MD, Ot Z90.710 ACQUIRED ABSENCE OF BOTH CERVIX AND UTER 10/26/2019 LEON HOLMAN MD Ot Z90. 89 ACQUIRED ABSENCE OF OTHER ORGANS 10/26/2019 LEON HOLMAN MD Ot Z98.890 OTHER SPECIFIED POSTPROCEDURAL STATES 2019 LEON HOLMAN MD Ot I10 ESSENTIAL (PRIMARY) HYPERTENSION 2019 LEON HOLMAN MD, Ot M54. 16 RADICULOPATHY, LUMBAR REGION 2019 LEON HOLMAN MD, Ot Z85.828 PERSONAL HISTORY OF OTHER MALIGNANT NEOP 2019 LEON HOLMAN MD, Ot Z90.710 ACQUIRED ABSENCE OF BOTH CERVIX AND UTER 2019 LEON HOLMAN MD Ot Z90. 89 ACQUIRED ABSENCE OF OTHER ORGANS 2019 LEON HOLMAN MD Ot Z98.890 OTHER SPECIFIED POSTPROCEDURAL STATES 11/08/2019 LEON HOLMAN MD, Ot M47.896 OTHER SPONDYLOSIS, LUMBAR REGION 11/08/2019 LEON HOLMAN MD Ot M48. 07 SPINAL STENOSIS, LUMBOSACRAL REGION 11/15/2019 CARLENE THRASHER Ot C92.11 CHRONIC MYELOID LEUKEMIA, BCR/ABL-POSITI 11/15/2019 CARLENE THRASHER Ot D50.0 IRON DEFICIENCY ANEMIA SECONDARY TO BLOO 11/15/2019 CARLENE THRASHER Ot N18.3 CHRONIC KIDNEY DISEASE, STAGE 3 (MODERAT 11/15/2019 CARLENE THRASHER Ot Z79.899 OTHER HATCH BOSS (CURRENT) DRUG THERAPY 11/15/2019 CARLENE THRASHER Ot Z98.890 OTHER SPECIFIED POSTPROCEDURAL STATES 11/29/2019 CARLENE THRASHER Ot C92.11 CHRONIC MYELOID LEUKEMIA, BCR/ABL-POSITI 11/29/2019 CARLENE THRASHER Ot D50.0 IRON DEFICIENCY ANEMIA SECONDARY TO BLOO 11/29/2019 CARLENE THRASHER Ot N18.3 CHRONIC KIDNEY DISEASE, STAGE 3 (MODERAT 11/29/2019 CARLENE THRASHER Ot Z79.899 OTHER RETIREMENT (CURRENT) DRUG THERAPY 11/29/2019 CARLENE THRASHER Ot Z98.890 OTHER SPECIFIED POSTPROCEDURAL STATES 12/25/2019 LEON HOLMAN MD, Ot I10 ESSENTIAL (PRIMARY) HYPERTENSION 12/25/2019 LEON HOLMAN MD, Ot M54. 16 RADICULOPATHY, LUMBAR REGION 12/25/2019 LEON HOLMAN MD, Ot Z85.828 PERSONAL HISTORY OF OTHER MALIGNANT NEOP 12/25/2019 LEON HOLMAN MD, Ot Z90.710 ACQUIRED ABSENCE OF BOTH CERVIX AND UTER 12/25/2019 LEON HOLMAN MD, Ot Z90. 89 ACQUIRED ABSENCE OF OTHER ORGANS 12/25/2019 LEON HOLMAN MD, Ot Z98.890 OTHER SPECIFIED POSTPROCEDURAL STATES 01/21/2020 LEON HOLMAN MD, Ot I10 ESSENTIAL (PRIMARY) HYPERTENSION 01/21/2020 LEON HOLMAN MD, Ot M54. 16 RADICULOPATHY, LUMBAR REGION 01/21/2020 LEON HOLMAN MD, Ot Z85.828 PERSONAL HISTORY OF OTHER MALIGNANT NEOP 01/21/2020 LEON HOLMAN MD, Ot Z90.710 ACQUIRED ABSENCE OF BOTH CERVIX AND UTER 01/21/2020 LEON HOLMAN MD, Ot Z90. 89 ACQUIRED ABSENCE OF OTHER ORGANS 01/21/2020 LEON HOLMAN MD, Ot Z98.890 OTHER SPECIFIED POSTPROCEDURAL STATES 01/22/2020 LEON HOLMAN MD, Ot I10 ESSENTIAL (PRIMARY) HYPERTENSION 01/22/2020 LEON HOLMAN MD, Ot M54. 16 RADICULOPATHY, LUMBAR REGION 01/22/2020 LEON HOLMAN MD, Ot Z85.828 PERSONAL HISTORY OF OTHER MALIGNANT NEOP 01/22/2020 LEON HOLMAN MD, Ot Z90.710 ACQUIRED ABSENCE OF BOTH CERVIX AND UTER 01/22/2020 LEON HOLMAN MD, Ot Z90. 89 ACQUIRED ABSENCE OF OTHER ORGANS 01/22/2020 LEON HOLMAN MD, Ot Z98.890 OTHER SPECIFIED POSTPROCEDURAL STATES 01/28/2020 PRICE, BOBAN N Ot C92.11 CHRONIC MYELOID LEUKEMIA, BCR/ABL-POSITI 01/28/2020 PRICECARLENE DIAZ N Ot D50.0 IRON DEFICIENCY ANEMIA SECONDARY TO BLOO 01/28/2020 CARLENE THRASHER N Ot N18.3 CHRONIC KIDNEY DISEASE, STAGE 3 (MODERAT 01/28/2020 CARLENE THRASHER N Ot Z79.899 OTHER HATCH BOSS (CURRENT) DRUG THERAPY 01/28/2020 CARLENE THRASHER N Ot Z98.890 OTHER SPECIFIED POSTPROCEDURAL STATES 01/29/2020 PRICE CARLENE N Ot C92.11 CHRONIC MYELOID LEUKEMIA, BCR/ABL-POSITI 01/29/2020 PRICE CARLENE N Ot D50.0 IRON DEFICIENCY ANEMIA SECONDARY TO BLOO 01/29/2020 PRICE, CARLENE N Ot N18.3 CHRONIC KIDNEY DISEASE, STAGE 3 (MODERAT 01/29/2020 PRICECHARLENELIBRA N Ot Z79.899 OTHER RETIREMENT (CURRENT) DRUG THERAPY 01/29/2020 PRICECHARLENELIBRA Girban Ot Z98.890 OTHER SPECIFIED POSTPROCEDURAL STATES 04/11/2020 PRICECARLENE N Ot C92.11 CHRONIC MYELOID LEUKEMIA, BCR/ABL-POSITI 04/11/2020 PRICE CARLENE N Ot D50.0 IRON DEFICIENCY ANEMIA SECONDARY TO BLOO 04/11/2020 PRICECHARLENELIBRA N Ot N18.3 CHRONIC KIDNEY DISEASE, STAGE 3 (MODERAT 04/11/2020 PRICE CARLENE N Ot Z79.899 OTHER HATCH BOSS (CURRENT) DRUG THERAPY 04/11/2020 PRICE CARLENE N Ot Z98.890 OTHER SPECIFIED POSTPROCEDURAL STATES 05/05/2020 LEON HOLMAN MD Ot V76. 12 OTH SCREEN MAMMO-MALIGN NEOPLASM OF JAYLEEN 05/05/2020 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 Ot C92.10 CHRONIC MYELOID LEUK, BCR/ABL-POSITIVE, 05/05/2020 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 Ot D50.0 IRON DEFICIENCY ANEMIA SECONDARY TO BLOO 05/05/2020 DAHIANA CARRENOAH S GERMINATION 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 Ot Z79.899 OTHER HATCH BOSS (CURRENT) DRUG THERAPY 05/05/2020 Ot Z12.31 ENC NTR SCREEN MAMMOGRAM FOR MALIGNANT NE 05/05/2020 LEON HOLMAN MD Ot I10 ESSENTIAL (PRIMARY) HYPERTENSION 05/05/2020 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 Ot M79.605 PAIN IN LEFT LEG 05/05/2020 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 Ot M79.89 OTHER SPECIFIED SOFT TISSUE DISORDERS 05/05/2020 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 Ot N18.3 CHRONIC KIDNEY DISEASE, STAGE 3 (MODERAT 05/05/2020 LEON HOLMAN MD, Ot Z12. 31 ENCNTR SCREEN MAMMOGRAM FOR MALIGNANT NE 05/05/2020 LEON HOLMAN MD, Ot Z12. 31 ENCNTR SCREEN MAMMOGRAM FOR MALIGNANT NE 05/05/2020 LEON HOLMAN MD, Ot R10. 9 UNSPECIFIED ABDOMINAL PAIN 05/05/2020 LEON HOLMAN MD, Ot Z93. 3 COLOSTOMY STATUS 05/05/2020 LEON HOLMAN MD, Ot M85. 88 OTH DISRD OF BONE DENSITY AND STRUCTURE, 05/05/2020 LEON HOLMAN MD, Ot T14.8XXA OTHER INJURY OF UNSPECIFIED BODY REGION, 05/05/2020 LEON HOLMAN MD, Ot E07. 89 OTHER SPECIFIED DISORDERS OF THYROID 05/05/2020 LEON HOLMAN MD, Ot E04. 2 NONTOXIC MULTINODULAR GOITER 05/05/2020 LEON HOLMAN MD, Ot E04. 2 NONTOXIC MULTINODULAR GOITER 05/05/2020 LEON HOLMAN MD, Ot Z12. 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 07 SPINAL STENOSIS, LUMBOSACRAL REGION 05/05/2020 CARLENE THRASHER Ot C92.11 CHRONIC MYELOID LEUKEMIA, BCR/ABL-POSITI 05/05/2020 CARLENE THRASHER Ot D50.0 IRON DEFICIENCY ANEMIA SECONDARY TO BLOO 05/05/2020 CARLENE THRASHER Ot N18.3 CHRONIC KIDNEY DISEASE, STAGE 3 (MODERAT 05/05/2020 CARLENE THRASHER Ot Z79.899 OTHER RETIREMENT (CURRENT) DRUG THERAPY 05/05/2020 CARLENE THRASHER Ot Z98.890 OTHER SPECIFIED POSTPROCEDURAL STATES 05/08/2020 MANDA BECKMAN, LEON Medrano Ot Z12. 31 ENCNTR SCREEN MAMMOGRAM FOR MALIGNANT NE Procedures There is no data. Results Test Result Range Complete blood count (CBC) with automate d white blood cell (WBC) differential - 03/08/18 21:20 Blood leukocytes automated count (number/volume) 3.6 10*3/uL 4.3-11.0 Blood erythrocytes automated count (number/volume) 3.52 10*6/uL 4.35-5.85 Venous blood hemoglobin measurement (mass/volume) 10.8 g/dL 11.5-16.0 Blood hematocrit (volume fraction) 31 % 35-52 Automated erythrocyte mean corpuscular volume 89 [ foz_us] 80-99 Automated erythrocyte mean corpuscular h emoglobin (mass per erythrocyte) 31 pg 25-34 Automated erythrocyte mean corpuscular h emoglobin concentration measurement (mass/volume) 34 g/dL 32-36 Automated erythrocyte distribution width ratio 13. 5 % 10.0- 14.5 Automated blood platelet count (count/volume) 169 10*3/uL 130-400 Automated blood platelet mean volume measurement 8.7 [foz_us] 7.4-10.4 Automated blood neutrophils/100 leukocytes 59 % 42-75 Automated blood lymphocytes/100 leukocytes 17 % 12-44 Blood monocytes/100 leukocytes 22 % 0-12 Automated blood eosinophils/100 leukocytes 2 % 0-10 Automated blood basophils/100 leukocytes 0 % 0-10 Blood neutrophils automated count (number/volume) 2.1 10*3 1.8-7.8 Blood lymphocytes automated count (number/volume) 0.6 10*3 1.0-4.0 Blood monocytes automated count (number/volume) 0. 8 10*3 0.0-1.0 Automated eosinophil count 0.1 10*3/uL 0 .0-0.3 Automated blood basophil count (count/volume) 0.0 10*3/uL 0.0-0.1 Comprehensive metabolic panel - 03/08/18 21:20 Serum or plasma sodium measurement (moles/volume) 134 mmol/L 135-145 Serum or plasma potassium measurement (moles/volume) 3.8 mmol/L 3.6-5.0 Serum or plasma chloride measurement (moles/volume) 98 mmol/L 98-107 Carbon dioxide 26 mmol/L 21-32 Serum or plasma anion gap determination (moles/volume) 10 mmol/L 5-14 Serum or plasma urea nitrogen measurement (mass/volume ) 16 mg/dL 7-18 Serum or plasma creatinine measurement (mass/volume) 0.84 mg/dL 0.60-1.30 Serum or plasma urea nitrogen/creatinine mass ratio 19 NRG Serum or plasma creatinine measurement w ith calculation of estimated glomerular filtration rate > NRG Serum or plasma glucose measurement (mass/volume) 97 mg/dL 70-105 Serum or plasma calcium measurement (mass/volume) 9.7 mg/dL 8.5-10.1 Serum or plasma total bilirubin measurement (mass/volu me) 0.5 mg/dL 0.1-1.0 Serum or plasma alkaline phosphatase bunny surement (enzymatic activity/volume) 75 U/L 40-136 Serum or plasma aspartate aminotransfera se measurement (enzymatic activity/volume) 26 U/L 5-34 Serum or plasma alanine aminotransferase measurement (enzymatic activity/volume) 20 U/L 0-55 Serum or plasma protein measurement (mass/volume) 8.1 g/dL 6.4-8.2 Serum or plasma albumin measurement (mass/volume) 4.7 g/dL 3.2-4.5 Serum or plasma C reactive protein measu rement (mass/volume) - 03/08/18 21:20 Serum or plasma C reactive protein measurement (mass/v olume) 1.14 mg/dL 0.00-0.50 BCR-ABL gene translocation detection - 0 12/26/18 08:51 [id number] Blood [facility] Blood or tissue t(9;22)(q34.1;q11)(ABL1, BCR) b2a2+b3a2 fusion transcript count by molecular genetics method (number/volume) See Report NR Automated blood complete blood count (he mogram) panel - 01/17/19 09:35 Blood leukocytes automated count (number/volume) 4.0 10*3/uL 4.3-11.0 Blood erythrocytes automated count (number/volume) 4.23 10*6/uL 4.35-5.85 Venous blood hemoglobin measurement (mass/volume) 12.2 g/dL 11.5-16.0 Blood hematocrit (volume fraction) 37 % 35-52 Automated erythrocyte mean corpuscular volume 87 [ foz_us] 80-99 Automated erythrocyte mean corpuscular h emoglobin (mass per erythrocyte) 29 pg 25-34 Automated erythrocyte mean corpuscular h emoglobin concentration measurement (mass/volume) 33 g/dL 32-36 Automated erythrocyte distribution width ratio 13. 4 % 10.0- 14.5 Automated blood platelet count (count/volume) 184 10*3/uL 130-400 Automated blood platelet mean volume measurement 9.2 [foz_us] 7.4-10.4 Methicillin resistant Staphylococcus aur eus (MRSA) screening culture - 01/17/19 10:00 Methicillin resistant Staphylococcus aureus (MRSA) scr eening culture NEG NRG Whole blood basic metabolic panel - 06/01 04:00 Serum or plasma sodium measurement (moles/volume) 136 mmol/L 135-145 Serum or plasma potassium measurement (moles/volume) 3.6 mmol/L 3.6-5.0 Serum or plasma chloride measurement (moles/volume) 100 mmol/L 98-107 Carbon dioxide 25 mmol/L 21-32 Serum or plasma anion gap determination (moles/volume) 11 mmol/L 5-14 Serum or plasma urea nitrogen measurement (mass/volume ) 16 mg/dL 7-18 Serum or plasma creatinine measurement (mass/volume) 0.80 mg/dL 0.60-1.30 Serum or plasma urea nitrogen/creatinine mass ratio 20 NRG Serum or plasma creatinine measurement w ith calculation of estimated glomerular filtration rate > NRG Serum or plasma glucose measurement (mass/volume) 122 mg/dL 70-105 Serum or plasma calcium measurement (mass/volume) 8.1 mg/dL 8.5-10.1 Complete blood count (CBC) with automate d white blood cell (WBC) differential - 02/15/19 08:59 Blood leukocytes automated count (number/volume) 3.7 10*3/uL 4.3-11.0 Blood erythrocytes automated count (number/volume) 3.71 10*6/uL 4.35-5.85 Venous blood hemoglobin measurement (mass/volume) 10.9 g/dL 11.5-16.0 Blood hematocrit (volume fraction) 33 % 35-52 Automated erythrocyte mean corpuscular volume 88 [ foz_us] 80-99 Automated erythrocyte mean corpuscular h emoglobin (mass per erythrocyte) 29 pg 25-34 Automated erythrocyte mean corpuscular h emoglobin concentration measurement (mass/volume) 33 g/dL 32-36 Automated erythrocyte distribution width ratio 14. 2 % 10.0- 14.5 Automated blood platelet count (count/volume) 191 10*3/uL 130-400 Automated blood platelet mean volume measurement 9.3 [foz_us] 7.4-10.4 Automated blood neutrophils/100 leukocytes 57 % 42-75 Automated blood lymphocytes/100 leukocytes 21 % 12-44 Blood monocytes/100 leukocytes 18 % 0-12 Automated blood eosinophils/100 leukocytes 4 % 0-10 Automated blood basophils/100 leukocytes 0 % 0-10 Blood neutrophils automated count (number/volume) 2.1 10*3 1.8-7.8 Blood lymphocytes automated count (number/volume) 0.8 10*3 1.0-4.0 Blood monocytes automated count (number/volume) 0. 7 10*3 0.0-1.0 Automated eosinophil count 0.1 10*3/uL 0 .0-0.3 Automated blood basophil count (count/volume) 0.0 10*3/uL 0.0-0.1 Comprehensive metabolic panel - 02/15/19 08:59 Serum or plasma sodium measurement (moles/volume) 136 mmol/L 135-145 Serum or plasma potassium measurement (moles/volume) 4.0 mmol/L 3.6-5.0 Serum or plasma chloride measurement (moles/volume) 102 mmol/L 98-107 Carbon dioxide 24 mmol/L 21-32 Serum or plasma anion gap determination (moles/volume) 10 mmol/L 5-14 Serum or plasma urea nitrogen measurement (mass/volume ) 13 mg/dL 7-18 Serum or plasma creatinine measurement (mass/volume) 0.87 mg/dL 0.60-1.30 Serum or plasma urea nitrogen/creatinine mass ratio 15 NRG Serum or plasma creatinine measurement w ith calculation of estimated glomerular filtration rate > NRG Serum or plasma glucose measurement (mass/volume) 121 mg/dL 70-105 Serum or plasma calcium measurement (mass/volume) 9.5 mg/dL 8.5-10.1 Serum or plasma total bilirubin measurement (mass/volu me) 0.3 mg/dL 0.1-1.0 Serum or plasma alkaline phosphatase bunny surement (enzymatic activity/volume) 98 U/L 40-136 Serum or plasma aspartate aminotransfera se measurement (enzymatic activity/volume) 24 U/L 5-34 Serum or plasma alanine aminotransferase measurement (enzymatic activity/volume) 19 U/L 0-55 Serum or plasma protein measurement (mass/volume) 7.2 g/dL 6.4-8.2 Serum or plasma albumin measurement (mass/volume) 4.3 g/dL 3.2-4.5 CALCIUM CORRECTED 9.3 mg/dL 8.5-10.1 BCR-ABL gene translocation detection - 0 02/15/19 08:59 [id number] Blood NRG Blood or tissue t(9;22)(q34.1;q11)(ABL1, BCR) b2a2+b3a2 fusion transcript count by molecular genetics method (number/volume) See Report NRG Blood lactic acid measurement (moles/vol ume) - 06/27/20 22:11 Blood lactic acid measurement (moles/volume) 0.59 mmol/L 0.50-2.00 Serum ragweed IgE antibody assay - 06/27 22:11 Serum ragweed IgE antibody assay 346 U/L 125-220 PT panel in platelet poor plasma by coag ulation assay - 06/27/20 22:11 Prothrombin time (PT) in platelet poor plasma by coagu lation assay 13.6 s 12.2-14.7 INR in platelet poor plasma or blood by coagulation as say 1.0 0.8-1.4 Activated partial thromboplastin time (a PTT) in platelet poor plasma bycoagulation assay - 06/27/20 22:11 Activated partial thromboplastin time (a PTT) in platelet poor plasma bycoagulation assay 42 s 24-35 PROCALCITONIN (PCT) - 06/27/20 22:11 PROCALCITONIN (PCT) 0.07 ng/mL <0.10 Bacterial blood culture - 06/27/20 22:35 Bacterial blood culture NG NRG Complete blood count (CBC) with automate d white blood cell (WBC) differential - 06/27/20 22:47 Blood leukocytes automated count (number/volume) 14.2 10*3/uL 4.3-11.0 Blood erythrocytes automated count (number/volume) 3.20 10*6/uL 4.35-5.85 Venous blood hemoglobin measurement (mass/volume) 9.9 g/dL 11.5-16.0 Blood hematocrit (volume fraction) 29 % 35-52 Automated erythrocyte mean corpuscular volume 90 [ foz_us] 80-99 Automated erythrocyte mean corpuscular h emoglobin (mass per erythrocyte) 31 pg 25-34 Automated erythrocyte mean corpuscular h emoglobin concentration measurement (mass/volume) 34 g/dL 32-36 Automated erythrocyte distribution width ratio 14. 9 % 10.0- 14.5 Automated blood platelet count (count/volume) 148 10*3/uL 130-400 Automated blood platelet mean volume measurement 8.5 [foz_us] 7.4-10.4 Automated blood neutrophils/100 leukocytes 80 % 42-75 Automated blood lymphocytes/100 leukocytes 10 % 12-44 Blood monocytes/100 leukocytes 10 % 0-12 Automated blood eosinophils/100 leukocytes 0 % 0-10 Automated blood basophils/100 leukocytes 0 % 0-10 Blood neutrophils automated count (number/volume) 11.4 10*3 1.8-7.8 Blood lymphocytes automated count (number/volume) 1.4 10*3 1.0-4.0 Blood monocytes automated count (number/volume) 1. 4 10*3 0.0-1.0 Automated eosinophil count 0.0 10*3/uL 0 .0-0.3 Automated blood basophil count (count/volume) 0.0 10*3/uL 0.0-0.1 Comprehensive metabolic panel - 06/27/20 22:47 Serum or plasma sodium measurement (moles/volume) 131 mmol/L 135-145 Serum or plasma potassium measurement (moles/volume) 3.6 mmol/L 3.6-5.0 Serum or plasma chloride measurement (moles/volume) 94 mmol/L 98-107 Carbon dioxide 25 mmol/L 21-32 Serum or plasma anion gap determination (moles/volume) 12 mmol/L 5-14 Serum or plasma urea nitrogen measurement (mass/volume ) 13 mg/dL 7-18 Serum or plasma creatinine measurement (mass/volume) 1.09 mg/dL 0.60-1.30 Serum or plasma urea nitrogen/creatinine mass ratio 12 NRG Serum or plasma creatinine measurement w ith calculation of estimated glomerular filtration rate 51 NRG Serum or plasma glucose measurement (mass/volume) 113 mg/dL 70-105 Serum or plasma calcium measurement (mass/volume) 9.1 mg/dL 8.5-10.1 Serum or plasma total bilirubin measurement (mass/volu me) 0.5 mg/dL 0.1-1.0 Serum or plasma alkaline phosphatase bunny surement (enzymatic activity/volume) 98 U/L 40-136 Serum or plasma aspartate aminotransfera se measurement (enzymatic activity/volume) 33 U/L 5-34 Serum or plasma alanine aminotransferase measurement (enzymatic activity/volume) 23 U/L 0-55 Serum or plasma protein measurement (mass/volume) 7.8 g/dL 6.4-8.2 Serum or plasma albumin measurement (mass/volume) 4.4 g/dL 3.2-4.5 CALCIUM CORRECTED 8.8 mg/dL 8.5-10.1 Manual absolute plasma cell count - 06/14 03/03 22:47 Blood monocytes/100 leukocytes 6 % NR Manual blood segmented neutrophils/100 leukocytes 85 % NRG Manual blood lymphocytes/100 leukocytes 9 % NR Blood erythrocyte morphology finding identification NORMAL NR PROCALCITONIN (PCT) - 06/27/20 22:47 PROCALCITONIN (PCT) 0.07 ng/mL <0.10 Serum or plasma thyrotropin measurement by detection limit <=0.05 miu/l (units/volume) - 06/27/20 22:47 Serum or plasma thyrotropin measurement by detection limit <=0.05 miu/l (units/volume) 0.89 u[iU]/mL 0.35-4.94 Serum or plasma C reactive protein measu rement (mass/volume) - 06/27/20 22:47 Serum or plasma C reactive protein measurement (mass/v olume) 13.60 mg/dL 0.00-0.50 Bacterial blood culture - 06/27/20 22:47 QUANTITY OF GROWTH Isolated NRG Bacterial blood culture [id number] NR SUSCEPTIBILITY SENT FOR ID AND SENSITIVITY [facility] MRSA SCREEN STUDIES TO FOLLOW [facility] Complete blood count (CBC) with automate d white blood cell (WBC) differential - 06/28/20 00:00 Blood leukocytes automated count (number/volume) 10.4 10*3/uL 4.3-11.0 Blood erythrocytes automated count (number/volume) 2.48 10*6/uL 4.35-5.85 Venous blood hemoglobin measurement (mass/volume) 7.5 g/dL 11.5-16.0 Blood hematocrit (volume fraction) 23 % 35-52 Automated erythrocyte mean corpuscular volume 91 [ foz_us] 80-99 Automated erythrocyte mean corpuscular h emoglobin (mass per erythrocyte) 30 pg 25-34 Automated erythrocyte mean corpuscular h emoglobin concentration measurement (mass/volume) 33 g/dL 32-36 Automated erythrocyte distribution width ratio 14. 7 % 10.0- 14.5 Automated blood platelet count (count/volume) 148 10*3/uL 130-400 Automated blood platelet mean volume measurement 8.7 [foz_us] 7.4-10.4 Automated blood neutrophils/100 leukocytes 84 % 42-75 Automated blood lymphocytes/100 leukocytes 8 % 12-44 Blood monocytes/100 leukocytes 9 % 0-12 Automated blood eosinophils/100 leukocytes 0 % 0-10 Automated blood basophils/100 leukocytes 0 % 0-10 Blood neutrophils automated count (number/volume) 8.7 10*3 1.8-7.8 Blood lymphocytes automated count (number/volume) 0.8 10*3 1.0-4.0 Blood monocytes automated count (number/volume) 0. 9 10*3 0.0-1.0 Automated eosinophil count 0.0 10*3/uL 0 .0-0.3 Automated blood basophil count (count/volume) 0.0 10*3/uL 0.0-0.1 Whole blood basic metabolic panel - 06/14 04/02 00:00 Serum or plasma sodium measurement (moles/volume) 132 mmol/L 135-145 Serum or plasma potassium measurement (moles/volume) 3.4 mmol/L 3.6-5.0 Serum or plasma chloride measurement (moles/volume) 97 mmol/L 98-107 Carbon dioxide 25 mmol/L 21-32 Serum or plasma anion gap determination (moles/volume) 10 mmol/L 5-14 Serum or plasma urea nitrogen measurement (mass/volume ) 11 mg/dL 7-18 Serum or plasma creatinine measurement (mass/volume) 0.91 mg/dL 0.60-1.30 Serum or plasma urea nitrogen/creatinine mass ratio 12 NRG Serum or plasma creatinine measurement w ith calculation of estimated glomerular filtration rate > NRG Serum or plasma glucose measurement (mass/volume) 112 mg/dL 70-105 Serum or plasma calcium measurement (mass/volume) 8.4 mg/dL 8.5-10.1 Serum or plasma C reactive protein measu rement (mass/volume) - 06/28/20 00:00 Serum or plasma C reactive protein measurement (mass/v olume) 15.88 mg/dL 0.00-0.50 Complete urinalysis with reflex to cultu re - 06/28/20 01:48 Urine color determination YELLOW NRG Urine clarity determination CLEAR NR G Urine pH measurement by test strip 6.0 5-9 Specific gravity of urine by test strip <= 1.016-1.022 Urine protein assay by test strip, semi-quantitative NEGATIVE NEGATIVE Urine glucose detection by automated test strip NE GATIVE NEGATIVE Erythrocytes detection in urine sediment by light micr oscopy 1+ NEGATIVE Urine ketones detection by automated test strip NE GATIVE NEGATIVE Urine nitrite detection by test strip NEGATIVE NEGATIVE Urine total bilirubin detection by test strip NEGA TIVE NEGATIVE Urine urobilinogen measurement by automated test strip (mass/volume) 0.2 mg/dL < = 1.0 Urine leukocyte esterase detection by dipstick NEG ATIVE NEGATIVE Automated urine sediment erythrocyte cou nt by microscopy (number/high power field) [HPF] NRG Automated urine sediment leukocyte count by microscopy (number/high power field) [HPF] NRG Bacteria detection in urine sediment by light microsco py NEGATIVE NRG Squamous epithelial cells detection in u rine sediment by light microscopy 5-10 NRG Crystals detection in urine sediment by light microsco py NONE NRG Casts detection in urine sediment by light microscopy NONE NRG Mucus detection in urine sediment by light microscopy NEGATIVE NRG Complete urinalysis with reflex to culture NO NRG Bacterial urine culture - 06/28/20 01:48 Bacterial urine culture [id number] NRG COLONY COUNT <10,000 NRG SUSCEPTIBILITY NO SUSCEPTIBILITIES SET UP NR 2019 Coronavirus Sars-Cov-2 - 06/28/20 0 5:15 SARS coronavirus RNA [Presence] inSerum or Plasma by MIAH with probe detection TNP Negative Coronavirus SARS-CoV-2 SO 2019 - 0 05:15 Coronavirus Ab [Units/volume] in Serum NOT DETECTE D Not Detecte Complete blood count (CBC) with automate d white blood cell (WBC) differential - 06/29/20 05:05 Blood leukocytes automated count (number/volume) 6.7 10*3/uL 4.3-11.0 Blood erythrocytes automated count (number/volume) 3.55 10*6/uL 4.35-5.85 Venous blood hemoglobin measurement (mass/volume) 10.7 g/dL 11.5-16.0 Blood hematocrit (volume fraction) 32 % 35-52 Automated erythrocyte mean corpuscular volume 89 [ foz_us] 80-99 Automated erythrocyte mean corpuscular h emoglobin (mass per erythrocyte) 30 pg 25-34 Automated erythrocyte mean corpuscular h emoglobin concentration measurement (mass/volume) 34 g/dL 32-36 Automated erythrocyte distribution width ratio 14. 7 % 10.0- 14.5 Automated blood platelet count (count/volume) 278 10*3/uL 130-400 Automated blood platelet mean volume measurement 10.1 [foz_us] 7.4-10.4 Automated blood neutrophils/100 leukocytes 60 % 42-75 Automated blood lymphocytes/100 leukocytes 22 % 12-44 Blood monocytes/100 leukocytes 14 % 0-12 Automated blood eosinophils/100 leukocytes 4 % 0-10 Automated blood basophils/100 leukocytes 0 % 0-10 Blood neutrophils automated count (number/volume) 4.0 10*3 1.8-7.8 Blood lymphocytes automated count (number/volume) 1.5 10*3 1.0-4.0 Blood monocytes automated count (number/volume) 0. 9 10*3 0.0-1.0 Automated eosinophil count 0.3 10*3/uL 0 .0-0.3 Automated blood basophil count (count/volume) 0.0 10*3/uL 0.0-0.1 Comprehensive metabolic panel - 06/29/20 05:05 Serum or plasma sodium measurement (moles/volume) 129 mmol/L 135-145 Serum or plasma potassium measurement (moles/volume) 4.3 mmol/L 3.6-5.0 Serum or plasma chloride measurement (moles/volume) 96 mmol/L 98-107 Carbon dioxide 21 mmol/L 21-32 Serum or plasma anion gap determination (moles/volume) 12 mmol/L 5-14 Serum or plasma urea nitrogen measurement (mass/volume ) 18 mg/dL 7-18 Serum or plasma creatinine measurement (mass/volume) 0.95 mg/dL 0.60-1.30 Serum or plasma urea nitrogen/creatinine mass ratio 19 NRG Serum or plasma creatinine measurement w ith calculation of estimated glomerular filtration rate 59 NRG Serum or plasma glucose measurement (mass/volume) 80 mg/dL 70-105 Serum or plasma calcium measurement (mass/volume) 8.3 mg/dL 8.5-10.1 Serum or plasma total bilirubin measurement (mass/volu me) 0.3 mg/dL 0.1-1.0 Serum or plasma alkaline phosphatase bunny surement (enzymatic activity/volume) 126 U/L 40-136 Serum or plasma aspartate aminotransfera se measurement (enzymatic activity/volume) 68 U/L 5-34 Serum or plasma alanine aminotransferase measurement (enzymatic activity/volume) 34 U/L 0-55 Serum or plasma protein measurement (mass/volume) 8.2 g/dL 6.4-8.2 Serum or plasma albumin measurement (mass/volume) 4.1 g/dL 3.2-4.5 CALCIUM CORRECTED 8.2 mg/dL 8.5-10.1 OCCULT BLOOD STOOL - 06/29/20 12:15 Stool gastrointestinal hemoglobin detection POSITI VE NEGATIVE Complete blood count (CBC) with automate d white blood cell (WBC) differential - 06/30/20 05:05 Blood leukocytes automated count (number/volume) 6.7 10*3/uL 4.3-11.0 Blood erythrocytes automated count (number/volume) 3.55 10*6/uL 4.35-5.85 Venous blood hemoglobin measurement (mass/volume) 10.7 g/dL 11.5-16.0 Blood hematocrit (volume fraction) 32 % 35-52 Automated erythrocyte mean corpuscular volume 89 [ foz_us] 80-99 Automated erythrocyte mean corpuscular h emoglobin (mass per erythrocyte) 30 pg 25-34 Automated erythrocyte mean corpuscular h emoglobin concentration measurement (mass/volume) 34 g/dL 32-36 Automated erythrocyte distribution width ratio 14. 7 % 10.0- 14.5 Automated blood platelet count (count/volume) 278 10*3/uL 130-400 Automated blood platelet mean volume measurement 10.1 [foz_us] 7.4-10.4 Automated blood neutrophils/100 leukocytes 60 % 42-75 Automated blood lymphocytes/100 leukocytes 22 % 12-44 Blood monocytes/100 leukocytes 14 % 0-12 Automated blood eosinophils/100 leukocytes 4 % 0-10 Automated blood basophils/100 leukocytes 0 % 0-10 Blood neutrophils automated count (number/volume) 4.0 10*3 1.8-7.8 Blood lymphocytes automated count (number/volume) 1.5 10*3 1.0-4.0 Blood monocytes automated count (number/volume) 0. 9 10*3 0.0-1.0 Automated eosinophil count 0.3 10*3/uL 0 .0-0.3 Automated blood basophil count (count/volume) 0.0 10*3/uL 0.0-0.1 Comprehensive metabolic panel - 06/30/20 05:05 Serum or plasma sodium measurement (moles/volume) 129 mmol/L 135-145 Serum or plasma potassium measurement (moles/volume) 4.3 mmol/L 3.6-5.0 Serum or plasma chloride measurement (moles/volume) 96 mmol/L 98-107 Carbon dioxide 21 mmol/L 21-32 Serum or plasma anion gap determination (moles/volume) 12 mmol/L 5-14 Serum or plasma urea nitrogen measurement (mass/volume ) 18 mg/dL 7-18 Serum or plasma creatinine measurement (mass/volume) 0.95 mg/dL 0.60-1.30 Serum or plasma urea nitrogen/creatinine mass ratio 19 NRG Serum or plasma creatinine measurement w ith calculation of estimated glomerular filtration rate 59 NRG Serum or plasma glucose measurement (mass/volume) 80 mg/dL 70-105 Serum or plasma calcium measurement (mass/volume) 8.3 mg/dL 8.5-10.1 Serum or plasma total bilirubin measurement (mass/volu me) 0.3 mg/dL 0.1-1.0 Serum or plasma alkaline phosphatase bunny surement (enzymatic activity/volume) 126 U/L 40-136 Serum or plasma aspartate aminotransfera se measurement (enzymatic activity/volume) 68 U/L 5-34 Serum or plasma alanine aminotransferase measurement (enzymatic activity/volume) 34 U/L 0-55 Serum or plasma protein measurement (mass/volume) 8.2 g/dL 6.4-8.2 Serum or plasma albumin measurement (mass/volume) 4.1 g/dL 3.2-4.5 CALCIUM CORRECTED 8.2 mg/dL 8.5-10.1 Encounters ACCT No. Visit Date/Time Discharge Status Pt. Type Provider Facility Loc./Unit Complaint [id number] 08/23/2014 16:01:00 08/23/2014 23:59: 59 CLS Outpatient EVELYN MORALES APRN [id number] 09/10/2013 10:51:00 09/10/2013 23:59: 59 CLS Outpatient EVELYN MORALES APRN [id number] 05/01/2015 09:48:35 ACT Document Registration [id number] 06/30/2020 10:50:00 15:48:00 DIS Inpatient MANDA BECKMAN, LEON Medrano [facility] 4TH FEVER,PULMONARY INFILTR ATE,CML [id number] 05/06/2020 13:51:00 23:59:59 CLS Outpatient LEON HOLMAN MD [facility] RAD SCREENING [id number] 04/24/2020 09:23:00 23:59:59 CLS Outpatient CARLENE THRASHER [facility] ONC LAB [id number] 01/24/2020 10:21:00 020 00:01:00 DIS Outpatient CARLENE THRASHER [facility] ONC LAB [id number] 12/14/2019 10:40:00 020 00:01:00 DIS Outpatient LEON HOLMAN MD [facility] REHAB LUMBAR PAIN WITH L LE RADICULOPATHY [id number] 10/17/2019 12:54:00 23:59:59 CLS Outpatient LEON HOLMAN MD [facility] RAD L LUMBAR PAIN [id number] 10/16/2019 08:35:00 00:01:00 DIS Outpatient CARLENE THRASHER [facility] ONC LAB [id number] 09/27/2019 14:56:00 23:59:59 CLS Outpatient LEON HOLMAN MD [facility] RAD LUMBAR BACK PAIN [id number] 05/10/2019 09:22:00 00:01:00 DIS Outpatient CARLENE THRASHER [facility] ONC LAB [id number] 03/01/2019 11:11:00 23:59:59 CLS Outpatient KEN BAER MD [facility] LAB TOTAL THYRODECTOMY [id number] 02/20/2019 08:59:00 23:59:59 CLS Outpatient LEON HOLMAN MD [facility] RAD SCREENING [id number] 01/17/2019 08:47:00 10:21:00 DIS Outpatient KEN BAER MD [facility] SDC BILATERAL THYROID NODU LES [id number] 01/11/2019 12:14:00 15:27:00 DIS Outpatient KEN BAER MD [facility] PREOP TOTAL THYROIDECTOMY [id number] 01/09/2019 10:12:00 00:01:00 DIS Outpatient CARLENE THRASHER [facility] ONC LAB [id number] 12/18/2018 07:26:00 23:59:59 CLS Outpatient LEON HOLMAN MD [facility] RAD THYROID NODULE [id number] 08/31/2018 13:29:00 23:59:59 CLS Outpatient LEON HOLMAN MD [facility] RAD R THRYOID MASS [id number] 08/18/2018 15:25:00 23:59:59 CLS Outpatient LEON HOLMAN MD [facility] RAD NECK FULLNESS [id number] 07/10/2018 09:23:00 12:35:00 DIS Outpatient KEN BAER MD [facility] ENDO HX COLON CA [id number] 07/03/2018 05:33:00 018 09:51:00 DIS Outpatient KEYUR BECKMAN, KEN Gross [facility] PREOP COLO [id number] 06/15/2018 09:30:00 018 23:59:59 CLS Outpatient LEON HOLMAN MD [facility] RAD FRACTURES EASILY [id number] 05/01/2018 09:46:00 018 09:09:00 DIS Outpatient CARLENE THRASHER [facility] ONC LAB [id number] 03/08/2018 20:49:00 018 22:18:00 DIS Emergency KATE BECKMAN, VAMSI Medrano [facility] ER L LOWER LEG AND FOOT SW ELLING;DOG BITE [id number] 03/07/2018 11:31:00 018 23:59:59 CLS Outpatient LEON HOLMAN MD [facility] RAD ABD PAIN [id number] 01/25/2018 08:45:00 018 23:59:59 CLS Outpatient LEON HOLMAN MD [facility] RAD SCREENING MAMMO [id number] 10/31/2017 12:47:00 018 00:01:00 DIS Outpatient CARLENE THRASHER [facility] ONC LAB [id number] 05/02/2017 13:15:00 017 00:01:00 DIS Outpatient CARLENE THRASHER [facility] ONC LAB [id number] 01/21/2017 10:22:00 017 23:59:59 CLS Outpatient LEON HOLMAN MD [facility] RAD SCREENING [id number] 12/27/2016 08:39:00 017 00:01:00 DIS Outpatient CARLENE THRASHER [facility] ONC LAB [id number] 12/31/2016 09:46:00 017 23:59:59 CLS Outpatient 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 [facility] RAD CKD [id number] 11/03/2016 16:12:00 016 23:59:59 CLS Outpatient 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 [facility] RAD LT LEG SWELLING /PAIN [id number] 04/29/2016 08:49:00 016 00:01:00 DIS Outpatient CARLENE THRASHER [facility] ONC LAB [id number] 05/19/2016 10:02:00 016 23:59:59 CLS Outpatient MANDA BECKMAN, LEON Medrano [facility] CARD HTN [id number] 04/21/2016 15:28:00 016 16:35:00 DIS Outpatient MANDA BECKMAN, LEON Medrano [facility] REHAB B LE LYMPHEDEMA GARMENT MEASUREMENT [id number] 10/16/2015 08:44:00 016 00:01:00 DIS Outpatient CARLENE THRASHER [facility] ONC LAB [id number] 2015 09:49:00 23:59:59 CLS 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 [id number] 05/01/2015 09:48:00 015 00:01:00 DIS Outpatient CARLENE THRASHER [facility] ONC LAB [id number] 01/16/2015 15:20:00 015 00:01:00 DIS Outpatient CARLENE THRASHER [facility] ONC LAB [id number] 11/19/2014 15:15:00 015 23:59:59 CLS Outpatient MANDA BECKMAN, LEON Medrano [facility] RAD SCREENING [id number] 10/23/2014 10:50:00 014 23:59:59 CLS Outpatient RUSSELL CARRENO S 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 [facility] ONC [id number] 10/17/2014 15:25:00 014 23:59:59 CLS Outpatient CARLENE THRASHER [facility] ONC LAB [id number] 04/18/2014 10:11:00 014 00:01:00 DIS Outpatient CARLENE THRASHER [facility] ONC LAB [id number] 01/03/2014 14:29:00 00:01:00 DIS Outpatient CARLENE THRASHER Gibran Richard [facility] ONC LAB [id number] 10/22/2013 15:23:00 23:59:59 CLS Outpatient LEON HOLMAN MD [facility] RAD SCREENING [id number] 10/09/2013 09:41:00 23:59:59 CLS Outpatient 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 [id number] 10/01/2013 15:13:00 013 00:01:00 DIS Outpatient CARLENE THRASHER Gibran Ramos [facility] ONC LAB [id number] 03/26/2013 15:14:00 00:01:00 DIS Outpatient PRICECARLENE DIAZ Gibran Ramos [facility] ONC LAB [id number] 06/03/2013 06:58:00 013 09:45:00 DIS Emergency JHON DYE MD [facility] ER BLEEDING FROM S YESSENIA [id number] 04/11/2013 10:42:00 013 23:59:59 CLS Outpatient 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 [facility] RAD SWELLING [id number] 04/10/2013 09:49:00 013 23:59:59 CLS Outpatient 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 [id number] 01/01/2013 16:35:00 013 00:01:00 DIS Outpatient CARLENE THRASHER [facility] ONC LAB [id number] 12/18/2015 15:22:00 Document Registration [id number] 10/02/2012 14:47:00 Document Registration [id number] 09/21/2012 15:17:00 Document Registration [id number] 07/24/2012 15:15:00 Document Registration [id number] 03/16/2012 12:53:00 Document Registration [id number] 09/16/2011 12:48:00 Document Registration [id number] 06/16/2011 14:16:00 Document Registration [id number] 05/19/2011 12:26:00 Document Registration [id number] 04/19/2011 08:01:00 Document Registration [id number] 03/01/2011 12:44:00 Document Registration [id number] 11/16/2010 12:56:00 Document Registration [id number] 11/11/2010 09:48:00 Document Registration [id number] 11/11/2010 09:46:00 Document Registration [id number] 08/13/2010 12:30:00 Document Registration
[2020-07-01] MEDS ORDERED: FOLIC ACID 1 MG TAB PO SCH (17:00)
--- NOTE | 2020-07-03 12:13 | Physician Query Clarification ---
PQ-Intro New Diagnosis Admission/Discharge Admission Date: Jun 28, 2020 at 06:00 Discharge Date: Jun 30, 2020 at 15:48 Dr. Holman, The medical record reflects the following clinical scenario: History/Risk Factors: pulmonary infiltrates/pneumonia, CML, HTN Clinical Findings: blood culture streptococcus mitis grp, T 38.8, WBC 14.2, lactic 0.59, P 97, R 20, BP 187/86 Treatment: IV Cefepime Question: What condition best reflects the above clinical scenario? Please document a response in the Progress Noter or Discharge Summary. 1. streptococcus mitis sepsis 2. streptococcus mitis septicemia 3. sepsis/septicemia ruled out 4. Other, with explanation of the clinical findings. 5. Clinically undetermined, no explanation for the clinical findings. PHYSICIAN RESPONSE What condition reflects above: Other, explanation/clinical finding (patient was treated for pneumonia and not sepsis. ) Please remember a lack of response to the above will prompt a phone page by [facility]/Coding staff. In responding to this query, please exercise your independent professional judgment. The purpose of this communication is to more accurately reflect the complexity of your patients condition. The fact that a question is asked does not imply that any particular answer is desired or expected. Thank you for your timely response to this clarification. Requestors name: Mari [email or web address] THIS PHYSICIAN QUERY FORM IS A PERMANENT PART OF THE MEDICAL RECORD MARI VANN Jul 03, 2020 12:13 LEON HOLMAN MD Jul 14, 2020 07:07
== END 2020-06-30 15:48 | disposition home or self-care (01) | DRG 194 ==
LOC: EDUNIT# 20:50 → ER 20:52 → 4TH 06-28 03:37 → UNDOADMOB 06-28 03:37 → 4TH 06-28 06:00 → OBSVTOIN 06-30 10:50 → INTOOBSV 06-30 10:50 → UNDODISIN 06-30 15:48
PROVIDERS: ADMIT Family Medicine; ATTEND Family Medicine
DX: J18.9 Pneumonia, unspecified organism (principal); C92.10 Chronic myeloid leukemia, BCR/ABL-positive, not having achieved remission; E87.1 Hypo-osmolality and hyponatremia; R21 Rash and other nonspecific skin eruption; D64.9 Anemia, unspecified; E78.00 Pure hypercholesterolemia, unspecified; I10 Essential (primary) hypertension; Z20.828 Contact with and (suspected) exposure to other viral communicable diseases; Z93.3 Colostomy status
CPT/HCPCS: 36415; 71045; 71046; 80048; 80053; 81000; 82274; 83605; 83615; 84145; 84443; 85007; 85025; 85027; 85610; 85730; 86141; 87040; 87088; 87635; 96374

== ENCOUNTER 2020-07-31 10:20 | Outpatient (RCR) | payer BC ==
[2020-07-17 08:58] LABS: BASOPHILS % (AUTO) 0 % (0-10); EOSINOPHILS # (AUTO) 0.1 10^3/uL (0.0-0.3); EOSINOPHILS % (AUTO) 3 % (0-10); HEMATOCRIT 30 % (35-52); LYMPHOCYTES % (AUTO) 33 % (12-44); MEAN CORPUSCULAR HEMOGLOBIN 30 PG (25-34); MEAN CORPUSCULAR HGB CONC 34 G/DL (32-36); MEAN CORPUSCULAR VOLUME 90 FL (80-99); MEAN PLATELET VOLUME 8.3 FL (7.4-10.4); MONOCYTES # (AUTO) 0.6 X 10^3 (0.0-1.0); MONOCYTES % (AUTO) 20 % (0-12); NEUTROPHILS # (AUTO) 1.3 X 10^3 (1.8-7.8); NEUTROPHILS % (AUTO) 44 % (42-75); PLATELET COUNT 217 10^3/uL (130-400); WHITE BLOOD COUNT 3.1 10^3/uL (4.3-11.0)
[2020-07-17 09:18] LABS: ALANINE AMINOTRANSFERASE 25 U/L (0-55); ALBUMIN 4.2 GM/DL (3.2-4.5); ALKALINE PHOSPHATASE 74 U/L (40-136); BILIRUBIN,TOTAL 0.3 MG/DL (0.1-1.0); BUN/CREATININE RATIO 12; CALCIUM 8.8 MG/DL (8.5-10.1); CARBON DIOXIDE 25 MMOL/L (21-32); CHLORIDE 96 MMOL/L (98-107); CREATININE SERUM 0.85 MG/DL (0.60-1.30); GFR ESTIMATED > 60; GLUCOSE 113 MG/DL (70-105); POTASSIUM 3.8 MMOL/L (3.6-5.0); SODIUM 131 MMOL/L (135-145); TOTAL PROTEIN 7.2 GM/DL (6.4-8.2)
[~2020-07-31 10:20] MED LIST changes: +ACET-2267 PO; +CEPH500T PO; -ENAL20TA PO; +ENAL20TA16 PO; +FERR240T5 PO; +FOLIC ACID PO; +IBUP-30 PO; +KETO10DR5 OU; +LATA2.5D5 OU; +MTP25TSR PO; +MULT-1067 PO
== END 2020-10-15 | disposition home or self-care (01) ==
LOC: ONC 10:20
PROVIDERS: ATTEND Internal Medicine Hematology & Oncology
DX: C92.11 Chronic myeloid leukemia, BCR/ABL-positive, in remission (principal); D50.0 Iron deficiency anemia secondary to blood loss (chronic); N18.30 Chronic kidney disease, stage 3 unspecified; Z79.899 Other long term (current) drug therapy; Z98.890 Other specified postprocedural states
CPT/HCPCS: 80053; 81206; 82728; 85025; 99213

== ENCOUNTER → 2020-08-20 | Outpatient (CLI) | payer BC ==
--- NOTE | 2020-08-20 09:46 | Diagnostic Imaging Report ---
INDICATION: Pneumonia follow-up. TIME OF EXAM: 9:36 AM Correlation is made with prior chest from 06/30/2020. FINDINGS: Heart size normal. There has been some reduction in left-sided pleural fluid since prior. Minimal residual pleural thickening or pleural fluid left base is again noted. Lungs are clear. The pulmonary vascularity is normal. No pneumothorax is seen. IMPRESSION: Reduction in left pleural effusion when compared to examination from 06/30/2020. Dictated by: Dictated on workstation # [id number]
== END ==
LOC: RAD 09:26
PROVIDERS: ATTEND Family Medicine
DX: J90 Pleural effusion, not elsewhere classified (principal); J18.9 Pneumonia, unspecified organism; Z20.828 Contact with and (suspected) exposure to other viral communicable diseases
CPT/HCPCS: 71046

== ENCOUNTER 2021-01-29 10:21 | Outpatient (RCR) | payer MEDICARE ==
[2021-01-15 09:01] LABS: BASOPHILS % (AUTO) 0 % (0-10); EOSINOPHILS # (AUTO) 0.1 10^3/uL (0.0-0.3); EOSINOPHILS % (AUTO) 2 % (0-10); HEMATOCRIT 31 % (35-52); HEMOGLOBIN 10.3 g/dL (11.5-16.0); LYMPHOCYTES # (AUTO) 0.7 10^3/uL (1.0-4.0); LYMPHOCYTES % (AUTO) 23 % (12-44); MEAN CORPUSCULAR HEMOGLOBIN 30 pg (25-34); MEAN CORPUSCULAR HGB CONC 34 g/dL (32-36); MEAN CORPUSCULAR VOLUME 89 fL (80-99); MEAN PLATELET VOLUME 8.6 fL (9.0-12.2); MONOCYTES # (AUTO) 0.7 10^3/uL (0.0-1.0); MONOCYTES % (AUTO) 22 % (0-12); NEUTROPHILS # (AUTO) 1.6 10^3/uL (1.8-7.8); NEUTROPHILS % (AUTO) 53 % (42-75); PLATELET COUNT 167 10^3/uL (130-400); WHITE BLOOD COUNT 3.1 10^3/uL (4.3-11.0)
[2021-01-15 09:25] LABS: ALANINE AMINOTRANSFERASE 27 U/L (0-55); ALBUMIN 4.1 GM/DL (3.2-4.5); ALKALINE PHOSPHATASE 106 U/L (40-136); BILIRUBIN,TOTAL 0.3 MG/DL (0.1-1.0); BUN/CREATININE RATIO 14; CALCIUM 8.8 MG/DL (8.5-10.1); CARBON DIOXIDE 25 MMOL/L (21-32); CHLORIDE 98 MMOL/L (98-107); CREATININE SERUM 0.84 MG/DL (0.60-1.30); GFR ESTIMATED > 60; GLUCOSE 111 MG/DL (70-105); POTASSIUM 3.8 MMOL/L (3.6-5.0); SODIUM 134 MMOL/L (135-145); TOTAL PROTEIN 7.1 GM/DL (6.4-8.2)
[~2021-01-29 10:21] MED LIST changes: +FOLI1TAB33 PO
== END 2021-04-15 | disposition home or self-care (01) ==
LOC: ONC 10:21
PROVIDERS: ATTEND Internal Medicine Hematology & Oncology
DX: C92.11 Chronic myeloid leukemia, BCR/ABL-positive, in remission (principal); D50.0 Iron deficiency anemia secondary to blood loss (chronic); N18.30 Chronic kidney disease, stage 3 unspecified; Z79.899 Other long term (current) drug therapy; Z98.890 Other specified postprocedural states
CPT/HCPCS: 80053; 81206; 82728; 85025; 99213

== ENCOUNTER → 2021-05-20 | Outpatient (CLI) | payer MEDICARE ==
--- NOTE | 2021-05-20 12:51 | Diagnostic Imaging Report ---
INDICATION: Routine screening. COMPARISON: 05/06/2020 and 02/20/2019. TECHNIQUE: 2D and 3D bilateral screening mammography was performed with CAD. FINDINGS: Both breasts are heterogeneously dense, limiting the sensitivity of mammography. There are scattered benign calcifications in both breasts. No mass or malignant appearing microcalcifications are seen. The axillae are unremarkable. IMPRESSION: No mammographic features suspicious for malignancy are identified. ACR BI-RADS Category 2: Benign findings. Result letter will be mailed to the patient. Note: At least 10% of breast cancer is not imaged by mammography. Dictated by: Dictated on workstation # [id number]
== END ==
LOC: RAD 10:31
PROVIDERS: ATTEND Family Medicine
DX: Z12.31 Encounter for screening mammogram for malignant neoplasm of breast (principal)
CPT/HCPCS: 77063; 77067

== ENCOUNTER 2021-07-30 10:50 | Outpatient (RCR) | payer MEDICARE ==
[2021-07-16 08:58] LABS: BASOPHILS % (AUTO) 0 % (0-10); EOSINOPHILS # (AUTO) 0.1 10^3/uL (0.0-0.3); EOSINOPHILS % (AUTO) 3 % (0-10); HEMATOCRIT 30 % (35-52); HEMOGLOBIN 9.9 g/dL (11.5-16.0); LYMPHOCYTES # (AUTO) 0.7 10^3/uL (1.0-4.0); LYMPHOCYTES % (AUTO) 24 % (12-44); MEAN CORPUSCULAR HEMOGLOBIN 31 pg (25-34); MEAN CORPUSCULAR HGB CONC 33 g/dL (32-36); MEAN CORPUSCULAR VOLUME 93 fL (80-99); MEAN PLATELET VOLUME 8.8 fL (9.0-12.2); MONOCYTES # (AUTO) 0.6 10^3/uL (0.0-1.0); MONOCYTES % (AUTO) 21 % (0-12); NEUTROPHILS # (AUTO) 1.5 10^3/uL (1.8-7.8); NEUTROPHILS % (AUTO) 51 % (42-75); PLATELET COUNT 157 10^3/uL (130-400); WHITE BLOOD COUNT 2.9 10^3/uL (4.3-11.0)
[2021-07-16 09:13] LABS: ALBUMIN 3.9 GM/DL (3.2-4.5); BILIRUBIN,TOTAL 0.3 MG/DL (0.1-1.0); CALCIUM 9.1 MG/DL (8.5-10.1); CREATININE SERUM 0.84 MG/DL (0.60-1.30); POTASSIUM 3.5 MMOL/L (3.6-5.0); TOTAL PROTEIN 6.8 GM/DL (6.4-8.2)
== END 2021-10-14 | disposition home or self-care (01) ==
LOC: ONC 10:50
PROVIDERS: ATTEND Internal Medicine Hematology & Oncology
DX: C92.11 Chronic myeloid leukemia, BCR/ABL-positive, in remission (principal); D50.0 Iron deficiency anemia secondary to blood loss (chronic); N18.30 Chronic kidney disease, stage 3 unspecified; E78.00 Pure hypercholesterolemia, unspecified; Z79.899 Other long term (current) drug therapy; Z98.890 Other specified postprocedural states
CPT/HCPCS: 80053; 81206; 82728; 83615; 85025; 99213

== ENCOUNTER 2022-03-17 05:38 | Outpatient (CLI) | payer MEDICARE ==
[~2022-03-17] VITALS: Ht 157.5 cm; Wt 67.6 kg
[2022-03-17] MEDS ORDERED: LATA7.5D OP (12:13)
[2022-03-17] MEDS ORDERED: FOLI1TAB33 PO (12:13)
== END 2022-03-17 13:21 | disposition home or self-care (01) ==
LOC: PREOP 05:38
PROVIDERS: ATTEND Surgery
DX: Z01.818 Encounter for other preprocedural examination (principal)

== ENCOUNTER 2022-03-24 11:07 | Day surgery (SDC) | payer MEDICARE ==
[~2022-03-24] VITALS: Ht 157.5 cm; Wt 67.6 kg
[~2022-03-24 11:07] MED LIST changes: +LATA7.5D OP
[2022-03-24] MEDS ORDERED: LACTATED RINGERS 1,000 ML IV STA (11:10)
[2022-03-24] MEDS ORDERED: LIDOCAINE JELLY 2% 6 ML SYRINGE MM PRN (11:15)
[2022-03-24] MEDS ORDERED: HURRICAINE EXT TUBE (BENZOCAINE) XX PRN (11:15)
--- NOTE | 2022-03-24 11:22 | Progress Note-Pre Operative ---
Pre-Operative Progress Note H&P Reviewed The H&P was reviewed, patient examined and no changes noted. Date Seen by Provider: March 24, 2022 Time Seen by Provider: 11:00 Date H&P Reviewed: March 24, 2022 Time H&P Reviewed: 11:00 Pre-Operative Diagnosis: anemia, screening/FH SUDHEER DALY MD March 24, 2022 11:22
[2022-03-24] MEDS ORDERED: PANT40TA2 PO (11:23)
--- NOTE | 2022-03-24 11:24 | Discharge Inst-Surgical ---
D/C Lap Instructions-KIDO New, Converted, or Re-Newed RX: RX on Chart Follow Up Activity as tolerated High Fiber Diet 25g or more per day Avoid Alcohol, Caffeine, Spicy [place] and Acid foods. Drink 64 fluid oz or more of fluids per day. Symptoms to Report: Fever over 101 degree F, Nausea/Vomiting If any problems/questions: Contact your physician or go to Emergency Room SUDHEER DALY MD March 24, 2022 11:24
[2022-03-24] MEDS ORDERED: ONDANSETRON 4 MG (ZOFRAN) ORAL DISSOLVE TAB PO PRN (11:30)
[2022-03-24] MEDS ORDERED: ONDANSETRON 4 MG/2 ML (SDV) Z0FRAN IVP PRN (11:30)
[2022-03-24 11:43] VITALS: BP 196/102
[2022-03-24] MEDS ORDERED: LIDOCAINE/EPI 1%-1:100,000 (XYLOCAINE) 10 ML INJ ONE (12:45)
[2022-03-24] MEDS ORDERED: PROPOFOL INJECTION 50 ML IV ONE (13:01)
[2022-03-24] MEDS ORDERED: MIDAZOLAM 2 MG/2 ML (VERSED) VIAL ONE (13:01)
[2022-03-24 13:50] VITALS: BP 109/66
[2022-03-24 13:55] VITALS: BP 112/68
--- NOTE | 2022-03-24 14:12 | Progress Note-Post Operative ---
Post-Operative Progess Note Surgeon (s)/Transit Coach Operator (s) Surgeon SUDHEER DALY MD Transit Coach Operator: none Pre-Operative Diagnosis anemia, screening/FH Post-Operative Diagnosis reflux esophagitis(grade B-C), small HH(1.5cm), type 3 prepyloric ulcer. functional end colostomy, small prox transverse colon polyp(2mm). Procedure & Operative Findings Date of Procedure 03/24/22 Procedure Performed/Findings EGD with bx. Colonoscopy with forcep polypectomy. excsion perianal skin lesion 1.5cm. Anesthesia Type mac with local Estimated Blood Loss Estimated blood loss (mL): minimal Specimens/Packing Specimens Removed ge jxn, ulcer, perianal lesion SUDHEER DALY MD March 24, 2022 14:12
[2022-03-24 14:25] VITALS: BP 181/105
--- NOTE | 2022-03-24 14:32 | Anesthesia-General Post-Op ---
MAC Patient Condition Mental Status/LOC: Same as Preop Cardiovascular: Satisfactory Nausea/Vomiting: Absent Respiratory: Satisfactory Pain: Controlled Complications: Absent Post Op Complications Complications None Follow Up Care/Instructions Patient Instructions None needed. Anesthesiology Discharge Order Discharge Order Patient is doing well, no complaints, stable vital signs, no apparent adverse anesthesia problems. No complications reported per nursing. LOGAN MORTON CRNA March 24, 2022 14:32
[2022-03-24 15:43] VITALS: BP 181/105
--- NOTE | 2022-03-24 21:57 | OPERATIVE REPORT ---
DATE OF SERVICE: 03/24/2022 ATTENDING PRIMARY CARE PHYSICIAN: Hector Campbell MD PREOPERATIVE DIAGNOSES: Anemia, screening colonoscopy with family history of colon cancer, symptomatic perianal skin lesion. POSTOPERATIVE DIAGNOSES: Small polyp of the transverse colon, 2 mm in size, perianal skin lesion approximately 1.5 cm in size, reflux esophagitis, [place] grade B, small hiatal hernia 1.5 cm in size, type 3 prepyloric ulcer with an overlying fibrin clot. PROCEDURE: EGD with biopsy, colonoscopy with biopsy, excision of perianal skin lesion 1.5 cm in size. SURGEON: Sudheer Daly MD ANESTHESIA: Monitored anesthesia care with local. ESTIMATED BLOOD LOSS: Minimal. FINDINGS: Small polyp of the transverse colon, 2 mm in size, perianal skin lesion approximately 1.5 cm in size, reflux esophagitis, [place] grade B, small hiatal hernia 1.5 cm in size, type 3 prepyloric ulcer with an overlying fibrin clot. DISPOSITION: The patient tolerated the procedure well. INDICATIONS: The patient is a 66-year-old female referred over to us for anemia as well as screening colonoscopy with family history of colon cancer. She also does have a symptomatic lesion of the perianal region at approximately the 6 o'clock position with the patient supine. She states that she has had bowel obstructions for nonmalignant lesions, which sounds to be more consistent with an obstructive diverticulitis. She had an initial colon resection and end colostomy and Lacie's, which was reversed; however, this was brought back to end colostomy and Lacie's pouch. She was also found to be anemic with a hemoglobin 9.6. She does have a history of chronic lymphocytic leukemia as well. DESCRIPTION OF PROCEDURE: The patient was brought to the endoscopy suite, laid in the left lateral decubitus position. After adequate IV pain and sedative medications and monitored anesthesia care, the mouthpiece was applied. The endoscope was placed in the mouth, visualizing the pharynx and hypopharyngeal region. Vocal cords, epiglottis and vallecula identified and appeared to be normal. Endoscope was then gently intubated the esophageal opening and esophagus insufflated. The endoscope was then advanced to the first, second and third portion of esophagus at the level of the GE junction, a reflux esophagitis, [place] grade B to C identified. There were no ulcerations or any strictures identified. A biopsy was taken with forceps with visualization of good hemostasis. The endoscope was then advanced in the stomach and endoscope retroflexed, visualizing a small hiatal hernia approximately 1.5 cm in size. There was a moderate severity gastritis and there was a type 3 prepyloric ulcer few millimeters in size with an overlying fibrin clot and no active bleeding. A biopsy was taken of the rim of the ulcer with forceps with visualization of good hemostasis. The endoscope was then advanced through the pylorus into the first and second portion of the duodenum, which appeared normal with no other ulcerations or any distal obstructions. The endoscope was then slowly withdrawn while taking a second look and suctioning of residual air with no additional findings. The patient was then placed supine and the colostomy bag removed. The colostomy appeared viable with no signs of ischemia or stricture. The endoscope was placed into the colostomy and advanced through what appeared to be the remainder of the transverse colon, ascending colon to the cecum. A small polyp was identified of the proximal transverse colon, which was small and approximately 2 mm in size. This was biopsied and destroyed with forceps and electrocautery with visualization of good hemostasis. The endoscope was then slowly withdrawn while taking a second look and suctioning of residual air with no additional findings. The patient was then placed back left lateral decubitus. The perianal region was then prepped and draped in standard surgical fashion. A 1% lidocaine with epinephrine was used to anesthetize the overlying skin to the lesion. The lesion was approximately 1.5 cm in size and completely excised to normal appearing skin using a 15 blade. Good hemostasis was observed and the skin edges were reapproximated using 4-0 nylon interrupted sutures. Good hemostasis was observed and the wound was covered with a gauze and tape. The patient tolerated the procedure well. For her prepyloric ulcer, we will start her on Protonix 40 mg daily as well as the necessary lifestyle and dietary accommodation including small and more frequent meals, avoiding to eating at night as well as head elevation while lying supine. She also needs to avoid caffeinated beverages, spicy, greasy and acidic foods. We will also recommend a followup EGD in approximately 8 weeks to verify healing of the ulcer with medical therapy. We will also recommend a high fiber diet with incorporation of a fiber supplement, which may give her more solid stools. We will also have her follow up in the office in approximately 1 week to remove the sutures. Job ID: [id number] DocumentID: [id number] Dictated Date: 03/24/2022 14:12:24 Maintenance Pipefitter Date: 03/24/2022 21:56:59 Dictated By: SUDHEER DALY MD MTDD
== END 2022-03-24 13:09 | disposition home or self-care (01) ==
LOC: ENDO 11:07
PROVIDERS: ATTEND Surgery
DX: K21.00 Gastro-esophageal reflux disease with esophagitis, without bleeding (principal); K29.50 Unspecified chronic gastritis without bleeding; K44.9 Diaphragmatic hernia without obstruction or gangrene; K62.89 Other specified diseases of anus and rectum; K25.9 Gastric ulcer, unspecified as acute or chronic, without hemorrhage or perforation; D64.9 Anemia, unspecified; A63.0 Anogenital (venereal) warts; C91.11 Chronic lymphocytic leukemia of B-cell type in remission; Z79.899 Other long term (current) drug therapy; Z80.0 Family history of malignant neoplasm of digestive organs
CPT/HCPCS: 88305

== ENCOUNTER → 2022-05-26 | Outpatient (CLI) | payer MEDICARE ==
[~2022-05-26] VITALS: Ht 157.5 cm; Wt 66.4 kg
[~2022-05-26] MED LIST changes: +PANT40TA2 PO
== END | disposition home or self-care (01) ==
LOC: PREOP 05:31
PROVIDERS: ATTEND Surgery
DX: Z01.818 Encounter for other preprocedural examination (principal)

== ENCOUNTER → 2022-05-31 | Outpatient (CLI) | payer MEDICARE ==
--- NOTE | 2022-05-31 12:02 | Diagnostic Imaging Report ---
INDICATION: Routine screening. Comparison is made with prior mammogram 05/20/2021 and 05/06/2020. 2-D and 3-D bilateral screening mammography was performed with CAD. Both breasts are heterogeneously dense, limiting the sensitivity of mammography. The parenchymal pattern is stable. There are scattered benign calcifications. No mass or malignant-appearing microcalcifications are seen. Axillae are unremarkable. IMPRESSION: No mammographic features suspicious for malignancy are identified. ACR BI-RADS Category 2: Benign findings. Result letter will be mailed to the patient. Note: At least 10% of breast cancer is not imaged by mammography. BI-RADS Category 2 Dictated by: Dictated on workstation # [id number]
== END ==
LOC: RAD 09:45
PROVIDERS: ATTEND Family Medicine
DX: Z12.31 Encounter for screening mammogram for malignant neoplasm of breast (principal)
CPT/HCPCS: 77063; 77067

== ENCOUNTER 2022-06-02 10:19 | Day surgery (SDC) | payer MEDICARE ==
--- NOTE | 2022-06-01 13:33 | HISTORY AND PHYSICAL ---
DATE OF SERVICE: ATTENDING PRIMARY CARE PHYSICIAN: Dr. Hector Campbell. HISTORY OF PRESENT ILLNESS: The patient is a 66-year-old female who was referred over to us for anemia as well as a screening colonoscopy with a family history of colon cancer. She also has a symptomatic lesion of the perianal region at approximately 6 o'clock position with the patient supine. She states that she has had bowel obstructions for endometrial tissue on the bowel in the past. She had initial colon resection and colostomy with Lacie's pouch, which was reversed; however, was brought back to an end colostomy and Cast's pouch. She was found to be anemic with hemoglobin of 9.6 and also has a history of chronic myeloid leukemia as well. On 03/24/2022, she underwent an EGD with biopsy and colonoscopy with biopsy and excision of perianal skin lesion that was 1.5 cm in size. Findings were small polyp of the transverse colon that was 2 mm in size, perianal skin lesion that was approximately 1.5 cm in size, reflux esophagitis grade B, small hiatal hernia 1.5 cm in size, and type 3 prepyloric ulcer with an overlying fibrin clot. She tolerated the procedure well and was later discharged home. Biopsies of the stomach as well as the GE junction were negative for any H. pylori or Alvarez's esophagus. 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 She reports that she is doing well with no issues. She denies any nausea or vomiting as well as no heartburn or reflux. She also denies any blood in her stool or any abdominal pain. She reports she is having regular bowel movements with no issues. PAST MEDICAL HISTORY: Endometriosis, hypertension, degenerative disk disease, hypercholesterolemia, chronic myeloid leukemia. PAST SURGICAL HISTORY: Complete hysterectomy in 1993, appendectomy in 1993, colon resection with Cast's pouch 01/2001, colostomy reversal 04/2001, colon resection and placement of Lacie's pouch 06/2001, total thyroidectomy 2018. ALLERGIES: PEPCID, NAPROXEN, COMBIGAN. MEDICATIONS: Enalapril 20 mg, folic acid 1 mg, hydrochlorothiazide 25 mg, simvastatin 10 mg, Sprycel 70 mg, 0.005% solution, metoprolol succinate ER 25 mg, levothyroxine 100 mcg, ferrous gluconate, multivitamin, calcium. SOCIAL HISTORY: Negative for tobacco, smoking. Negative for alcohol. FAMILY HISTORY: Father, colon cancer. Mother, ovarian cancer, uterine cancer, hypertension, stroke. VITAL SIGNS: Stable. Current weight is 150.4 pounds at 5 feet 2 inches. REVIEW OF SYSTEMS: Well-nourished female, in no acute distress. She is not experiencing any shortness of breath or difficulty breathing. No chest pain, palpitations or diaphoresis. No nausea, vomiting or abdominal pain. No diarrhea or constipation. No red blood per rectum. No dark tarry stools. No fever or chills. No recent inadvertent weight loss. All other review of systems negative. PHYSICAL EXAMINATION: CHEST: Clear. Good breath sounds bilaterally. HEART: Regular, no murmurs. EXTREMITIES: No lower extremity edema. Negative Homans sign. HEENT: No scleral icterus. NECK: No cervical lymphadenopathy. ABDOMEN: Soft, nontender, nondistended. SKIN: Warm, dry and pink. NEUROLOGIC: Awake, alert and oriented x3. ASSESSMENT AND PLAN: A 66-year-old female with a history of gastroesophageal reflux disease who recently had an EGD, which did show type 3 prepyloric ulcer. She was started on a PPI as well as instructed to proceed with the necessary diet and lifestyle accommodations including small and more frequent meals as well as the avoidance of eating late at night, keeping her head elevated while lying supine. She was also instructed to avoid any caffeinated beverages, greasy, spicy as well as acidic foods and beverages. It was also explained to the patient that she would need a followup EGD around the 6-week chetan to make sure that the ulcer had healed. At this time, we will proceed with scheduling her for a followup EGD. Job ID: [id number] DocumentID: [id number] Dictated Date: 06/01/2022 12:33:54 Desk Top Publisher Date: 06/01/2022 13:32:35 Dictated By: MEEK LIMON APRN
[~2022-06-02] VITALS: Ht 158 cm; Wt 66.4 kg
[2022-06-02] MEDS ORDERED: LACTATED RINGERS 1,000 ML IV STA ×2 (10:26→12:38)
[2022-06-02] MEDS ORDERED: LIDOCAINE JELLY 2% 6 ML SYRINGE MM PRN ×2 (10:30→12:45)
[2022-06-02] MEDS ORDERED: HURRICAINE EXT TUBE (BENZOCAINE) XX PRN ×2 (10:30→12:45)
[2022-06-02 10:35] VITALS: BP 171/84
--- NOTE | 2022-06-02 11:07 | Progress Note-Pre Operative ---
Pre-Operative Progress Note H&P Reviewed The H&P was reviewed, patient examined and no changes noted. Date Seen by Provider: Jun 02, 2022 Time Seen by Provider: 11:00 Date H&P Reviewed: Jun 02, 2022 Time H&P Reviewed: 11:00 Pre-Operative Diagnosis: hx gastric ulcer SUDHEER DALY MD Jun 02, 2022 11:07
--- NOTE | 2022-06-02 11:08 | Discharge Inst-Surgical ---
D/C Lap Instructions-MALIKA Follow Up Activity as tolerated High Fiber Diet 25g or more per day Avoid Alcohol, Caffeine, Spicy [place] and Acid foods. Drink 64 fluid oz or more of fluids per day. Symptoms to Report: Fever over 101 degree F, Nausea/Vomiting If any problems/questions: Contact your physician or go to Emergency Room SUDHEER DALY MD Jun 02, 2022 11:08
[2022-06-02] MEDS ORDERED: ONDANSETRON 4 MG (ZOFRAN) ORAL DISSOLVE TAB PO PRN (11:15)
[2022-06-02] MEDS ORDERED: ONDANSETRON 4 MG/2 ML (SDV) Z0FRAN IVP PRN (11:15)
[2022-06-02] MEDS ORDERED: MIDAZOLAM 2 MG/2 ML (VERSED) VIAL ONE (11:46)
[2022-06-02] MEDS ORDERED: PROPOFOL INJECTION 50 ML IV ONE (11:46)
[2022-06-02 12:24] VITALS: BP 79/50
[2022-06-02 12:29] VITALS: BP 81/61
[2022-06-02 12:30] VITALS: BP 81/61
--- NOTE | 2022-06-02 12:40 | Progress Note-Post Operative ---
Post-Operative Progess Note Surgeon (s)/Auto Clutch Rebuilder (s) Surgeon SUDHEER DALY MD Auto Clutch Rebuilder: none Pre-Operative Diagnosis hx gastric ulcer Post-Operative Diagnosis reflux esophagitis(grade B-C), mild dist esoph stricture, small HH(1.5cm), moderate gastritis, no ulcers Procedure & Operative Findings Date of Procedure 06/02/22 Procedure Performed/Findings EGD with bx and balloon dilatation Anesthesia Type mac Estimated Blood Loss Estimated blood loss (mL): minimal Specimens/Packing Specimens Removed ge jxn, antrum SUDHEER DALY MD Jun 02, 2022 12:40
[2022-06-02 12:55] VITALS: BP 132/60
[2022-06-02 13:10] VITALS: BP 132/60
--- NOTE | 2022-06-02 13:24 | Anesthesia-General Post-Op ---
MAC Patient Condition Mental Status/LOC: Same as Preop Cardiovascular: Satisfactory Nausea/Vomiting: Absent Respiratory: Satisfactory Pain: Controlled Complications: Absent Post Op Complications Complications None Follow Up Care/Instructions Patient Instructions None needed. Anesthesiology Discharge Order Discharge Order Patient is doing well, no complaints, stable vital signs, no apparent adverse anesthesia problems. No complications reported per nursing. MARTY LIAO CRNA Jun 02, 2022 13:24
--- NOTE | 2022-06-02 20:15 | OPERATIVE REPORT ---
DATE OF SERVICE: 06/02/2022 ATTENDING PRIMARY CARE PHYSICIAN: Dr. Valentín Campbell. PREOPERATIVE DIAGNOSIS: History of 3 prepyloric ulcers with an overlying fibrin clot. POSTOPERATIVE DIAGNOSES: Reflux esophagitis, [place] between grade B and C with a mild distal esophageal stricture, small hiatal hernia 1.5 cm in size, moderate gastritis and ulcers. Previous ulcers had healed. PROCEDURE: EGD with biopsy and balloon dilatation. SURGEON: Sudheer Daly MD ANESTHESIA: Monitored anesthesia care. ESTIMATED BLOOD LOSS: Minimal. FINDINGS: Reflux esophagitis, [place] grade between grade B and C with a mild distal esophageal stricture, small hiatal hernia 1.5 cm in size, moderate gastritis and ulcers. Previous ulcers had healed. DISPOSITION: The patient tolerated the procedure well. INDICATIONS: The patient is a 66-year-old female known to us. She had a bowel obstruction in the past requiring colonic resection and colostomy as well as Lacie's pouch and this was reversed. She then underwent an EGD and colonoscopy on 03/24/2022 and on the EGD, she was found to have 3 prepyloric ulcers with an overlying fibrin clot and no active bleeding. She was then treated medically. DESCRIPTION OF PROCEDURE: The patient was brought to the endoscopy suite, laid in the left lateral decubitus position. After adequate IV pain and sedative medications and monitored anesthesia care, the mouthpiece was applied. The endoscope was placed in the mouth, visualizing the pharynx and hypopharyngeal region. Vocal cords, epiglottis and vallecula identified and appeared to be normal. The endoscope was then gently intubated the esophageal opening and esophagus insufflated. The endoscope was then advanced to the first, second and third portion of esophagus at the level of the GE junction, reflux esophagitis, [place] between grade B and C esophagitis as well as a mild distal esophageal stricture. A biopsy was taken of this region with visualization of good hemostasis. The endoscope was then advanced in the stomach and endoscope retroflexed, visualizing a small hiatal hernia approximately 1.5 cm in size. There was a moderate gastritis. The previous prepyloric ulcers had healed. Ostomy was taken to the antrum to rule out H. pylori. Endoscope was then advanced to the pylorus and the first and second portion of the duodenum, which appeared normal with no distal obstructions. The balloon was then placed into the stomach and was pulled back to the area of the stricture. We then proceeded in a graded stepwise fashion from 2, 4, then eventually 6 atmospheres of pressure or 20 mm in luminal diameter with moderate resistance and left this in place for approximately 60 seconds. The balloon was desufflated and removed with visualization of good hemostasis as well as no mucosal tears. The endoscope was then slowly withdrawn while taking a second look and suctioning of residual air with no additional findings. The patient tolerated the procedure well. We will recommend the necessary lifestyle and dietary accommodation including small and more frequent meals, avoiding to eating at night as well as head elevation while lying supine. She also needs to avoid caffeinated beverages, spicy, greasy and acidic and continue to take her proton pump inhibitor acid mushroom farmer. Job ID: [id number] DocumentID: [id number] Dictated Date: 06/02/2022 12:25:49 Mechanical Operator Date: 06/02/2022 20:14:17 Dictated By: SUDHEER DALY MD
== END 2022-06-02 13:13 | disposition home or self-care (01) ==
LOC: ENDO 10:19
PROVIDERS: ATTEND Surgery
DX: K21.00 Gastro-esophageal reflux disease with esophagitis, without bleeding (principal); K22.2 Esophageal obstruction; K22.70 Barrett's esophagus without dysplasia; K31.89 Other diseases of stomach and duodenum; K44.9 Diaphragmatic hernia without obstruction or gangrene; K29.70 Gastritis, unspecified, without bleeding; Z87.11 Personal history of peptic ulcer disease
CPT/HCPCS: 88305

== ENCOUNTER 2022-09-28 14:42 | Outpatient (CLI) | payer MEDICARE ==
[~2022-09-28] VITALS: Ht 157.5 cm; Wt 69.9 kg
== END 2022-09-28 15:01 | disposition home or self-care (01) ==
LOC: PREOP 14:42
PROVIDERS: ATTEND Surgery
DX: Z01.818 Encounter for other preprocedural examination (principal)

== ENCOUNTER 2022-09-29 13:20 | Day surgery (SDC) | payer MEDICARE ==
[~2022-09-29] VITALS: Ht 157.5 cm; Wt 69.9 kg
[2022-09-29] MEDS ORDERED: LACTATED RINGERS 1,000 ML IV STA (13:32)
[2022-09-29] MEDS ORDERED: HURRICAINE EXT TUBE (BENZOCAINE) ONE (13:35)
[2022-09-29] MEDS ORDERED: LACTATED RINGERS 1,000 ML IV ONE (13:35)
[2022-09-29 13:45] VITALS: BP 165/76
[2022-09-29] MEDS ORDERED: HURRICAINE EXT TUBE (BENZOCAINE) XX PRN (13:45)
[2022-09-29] MEDS ORDERED: LIDOCAINE JELLY 2% 6 ML SYRINGE MM PRN (13:45)
[2022-09-29] MEDS ORDERED: MIDAZOLAM 2 MG/2 ML (VERSED) VIAL ONE (13:50)
[2022-09-29] MEDS ORDERED: PROPOFOL INJECTION 50 ML IV ONE (13:50)
--- NOTE | 2022-09-29 14:01 | Progress Note-Pre Operative ---
Pre-Operative Progress Note Date of Available H&P: Sep 29, 2022 Date H&P Reviewed: Sep 29, 2022 Time H&P Reviewed: 13:30 History & Physical: No changes noted Pre-Operative Diagnosis: dysphagia, GERD, PUD SUDHEER DALY MD Sep 29, 2022 14:01
--- NOTE | 2022-09-29 14:02 | Discharge Inst-Surgical ---
D/C Lap Instructions-MALIKA Follow Up Activity as tolerated High Fiber Diet 25g or more per day Avoid Alcohol, Caffeine, Spicy [place] and Acid foods. Drink 64 fluid oz or more of fluids per day. Symptoms to Report: Fever over 101 degree F, Nausea/Vomiting If any problems/questions: Contact your physician or go to Emergency Room SUDHEER DALY MD Sep 29, 2022 14:02
[2022-09-29] MEDS ORDERED: ONDANSETRON 4 MG (ZOFRAN) ORAL DISSOLVE TAB PO PRN (14:15)
[2022-09-29 14:45] VITALS: BP 81/47
[2022-09-29 14:50] VITALS: BP 97/50
--- NOTE | 2022-09-29 14:55 | Progress Note-Post Operative ---
Post-Operative Progess Note Surgeon (s)/Claim Trainee (s) Surgeon SUDHEER DALY MD Claim Trainee: none Pre-Operative Diagnosis dysphagia, GERD, PUD Post-Operative Diagnosis reflux esophagitis(grade C) with distal esoph stricture, mild gastritis. Procedure & Operative Findings Date of Procedure 09/29/22 Procedure Performed/Findings EGD with bx and balloon dilatation Anesthesia Type mac Estimated Blood Loss Estimated blood loss (mL): minimal Specimens/Packing Specimens Removed ge jxn, antrum SUDHEER DALY MD Sep 29, 2022 14:55
[2022-09-29 15:15] VITALS: BP 116/79
[2022-09-29 15:35] VITALS: BP 116/79
--- NOTE | 2022-09-30 02:02 | OPERATIVE REPORT ---
DATE OF SERVICE: 09/29/2022 ATTENDING PRIMARY CARE PHYSICIAN: Hector Campbell MD PREOPERATIVE DIAGNOSES: History of prepyloric ulcer,gastroesophageal reflux disease and dysphagia. POSTOPERATIVE DIAGNOSES: Reflux esophagitis, [place] grade C with mild distal esophageal stricture, small to moderate-sized hiatal hernia approximately 2.5 cm in size. No gastric ulcers. No distal obstructions. PROCEDURE: EGD with biopsy and balloon dilatation. SURGEON: Brayden Yepez MD ANESTHESIA: Monitored anesthesia care. ESTIMATED BLOOD LOSS: Minimal. FINDINGS: Reflux esophagitis, [place] grade C with mild distal esophageal stricture, small to moderate-sized hiatal hernia approximately 2.5 cm in size. No gastric ulcers. No distal obstructions. DISPOSITION: The patient tolerated the procedure well. INDICATIONS: The patient is a 66-year-old female known to us. We had done previous EGD and colonoscopy on her due to anemia. She was found to have a hiatal hernia as well as a type 3 prepyloric ulcer with overlying fibrin clot. She is here for followup to evaluate if the ulcer has healed; however, she also reports that she has had a history of gastroesophageal reflux disease, which has progressed to dysphagia and difficulty swallowing certain types of foods. DESCRIPTION OF PROCEDURE: The patient was brought to the endoscopy suite and laid in the left lateral decubitus position. After adequate IV pain and sedative medications and monitored anesthesia care, a mouthpiece was applied. The endoscope was then placed into the mouth, visualizing the pharynx and hypopharyngeal region. The vocal cords, epiglottis and vallecula identified and appeared to be normal. The endoscope was then gently intubated into the esophageal opening. Esophagus was insufflated. The endoscope was then advanced through the first, second and third portions of the esophagus and at the level of the GE junction, a reflux esophagitis, [place] grade C with a distal esophageal stricture identified. A biopsy was taken with forceps with visualization with good hemostasis. Endoscope was then advanced into the stomach and the endoscope was retroflexed, visualizing a small to moderate sized hiatal hernia approximately 2.5 cm in size. The previous type 3 prepyloric ulcer was now nonvisible and healed. Biopsy was taken of the antrum to rule out H. pylori. The endoscope was then advanced into the pylorus and the first and second portion of the duodenum, which appeared normal with no distal obstructions. The balloon was then placed into the stomach and pulled back to the area of the stricture. We then proceeded in a graded stepwise fashion from 2, 4 and then eventually 5 atmospheres of pressure or approximately 19.5 mm in luminal diameter and left this in place for approximately 60 seconds. Moderate tension was encountered. The balloon was desufflated and removed with visualization of good hemostasis as well as no mucosal tears. The endoscope was then slowly withdrawn while taking a second look and suctioning of residual air with no additional findings. The patient tolerated the procedure well. We will recommend the necessary lifestyle and dietary accommodation including small more frequent meals, avoidance of eating at night as well as head elevation while lying supine. 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 We will also continue to monitor her symptomatology of the dysphagia and if this reoccurs, we will have her follow up for repeat dilatation and if she continues to have reflux type of symptoms despite maximal medical therapy, we would then offer a hiatal hernia repair as well as an antireflux procedure; however, before this order testing including an esophageal manometric study to rule out esophageal dysmotility disorder. Job ID: [id number] DocumentID: [id number] Dictated Date: 09/29/2022 14:45:50 Qualified Craft Worker Electrician Date: 09/30/2022 02:00:00 Dictated By: SUDHEER DALY MD
--- NOTE | 2022-09-30 13:04 | Anesthesia-General Post-Op ---
MAC Significant Intra-Op Events Notes late entry 09/29/22@ 1430 Patient Condition Mental Status/LOC: Same as Preop Cardiovascular: Satisfactory Nausea/Vomiting: Absent Respiratory: Satisfactory Pain: Controlled Complications: Absent Post Op Complications Complications None Follow Up Care/Instructions Patient Instructions None needed. Anesthesiology Discharge Order Discharge Order Patient is doing well, no complaints, stable vital signs, no apparent adverse anesthesia problems. No complications reported per nursing. SANDRA LUI CRNA Sep 30, 2022 13:04
--- NOTE | 2022-10-01 07:23 | HISTORY AND PHYSICAL ---
DATE OF SERVICE: 09/29/2022 DATE OF PROCEDURE: 09/29/2022. HISTORY OF PRESENT ILLNESS: The patient is a 66-year-old female who was referred over to us for anemia as well as a screening colonoscopy with a family history of colon cancer. She also had a symptomatic lesion of the perianal region at approximately 6 o'clock position with the patient supine. She states that she has had bowel obstructions for endometrial tissue on the bowel. She had an initial colon resection and end-colostomy with Lacie's pouch, which was reversed; however, this was brought back to an end colostomy and Lacie's pouch. She was found to be anemic earlier this year with a hemoglobin of 9.6 and does have a history of chronic myeloid leukemia as well. On 03/24/2022, she underwent EGD with biopsy and colonoscopy with biopsy and excision of perianal skin lesion that was 1.5 cm in size. Findings were small polyp of the transverse colon that was 2 mm in size and perianal skin lesion that was approximately 1.5 cm in size. Reflux esophagitis grade B, small hiatal hernia 1.5 cm in size and a type 3 prepyloric ulcer with an overlap overlying fibrin clot. She tolerated the procedure well and was later discharged home. Biopsies of the stomach as well as GE junction were negative for H. pylori as well as negative for Alvarez's esophagus. 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 On today's visit, she is doing well. She denies any nausea or vomiting as well as no heartburn or reflux. She denies any blood in her stool or any abdominal pain. She reports regular bowel movements with no issues. She is here for a followup EGD to make sure that her ulcer has healed. MEDICAL HISTORY: Endometriosis, hypertension, degenerative disk disease, hypercholesterolemia, myeloid leukemia. PAST SURGICAL HISTORY: Complete hysterectomy in 1993, appendectomy in 1993, colon resection with Lacie's pouch 01/2001, colostomy reversal 04/2001, colon resection and placement of Lacie's pouch 06/2001, total thyroidectomy 2018. ALLERGIES: PEPCID, SULFA, NAPROXEN, COMBIGAN. MEDICATIONS: Enalapril 20 mg, folic acid 1 mg, hydrochlorothiazide 25 mg, simvastatin 10 mg, Sprycel 70 mg, latanoprost ophthalmic solution 0.005%, metoprolol succinate ER 25 mg, levothyroxine 100 mcg, iron, multivitamin, calcium. SOCIAL HISTORY: Negative for tobacco smoker, negative for alcohol. FAMILY HISTORY: Father, colon cancer; mother, ovarian cancer, hypertension and stroke. VITAL SIGNS: Blood pressure is 148/80. Current weight is 150 pounds at 5 feet 2 inches. REVIEW OF SYSTEMS: This is a well-nourished female in no acute distress. She is not experiencing any shortness of breath or difficulty breathing. No chest pain, palpitations or diaphoresis. No nausea, vomiting or abdominal pain. No diarrhea or constipation. No red blood per rectum. No dark tarry stools. No fever or chills. No recent inadvertent weight loss. All other review of systems negative. PHYSICAL EXAMINATION: CHEST: Clear, good breath sounds bilaterally. HEART: Regular. No murmurs. EXTREMITIES: No lower extremity edema. Negative Homans sign. HEENT: No scleral icterus. No cervical lymphadenopathy. ABDOMEN: Soft, nontender, nondistended. SKIN: Warm, dry and pink. NEUROLOGIC: Awake, alert, oriented x3. ASSESSMENT AND PLAN: A 66-year-old female with a history of peptic ulcer disease, who is in need of a followup EGD to make sure that her ulcer has healed. At this time, we will proceed with scheduling her for a followup EGD. CC: Dr. Pickard -- requested, unable to deliver. Job ID: [id number] DocumentID: [id number] Dictated Date: 09/20/2022 08:37:15 Scanner Operator Date: 09/20/2022 10:10:00 Dictated By: MEEK LIMON APRN
== END 2022-09-29 15:35 | disposition home or self-care (01) ==
LOC: ENDO 13:20
PROVIDERS: ATTEND Surgery
DX: Z09 Encounter for follow-up examination after completed treatment for conditions other than malignant neoplasm (principal); K21.00 Gastro-esophageal reflux disease with esophagitis, without bleeding; K22.2 Esophageal obstruction; K44.9 Diaphragmatic hernia without obstruction or gangrene; K29.70 Gastritis, unspecified, without bleeding; C92.10 Chronic myeloid leukemia, BCR/ABL-positive, not having achieved remission; D64.9 Anemia, unspecified; Z87.11 Personal history of peptic ulcer disease; Z80.0 Family history of malignant neoplasm of digestive organs; Z90.49 Acquired absence of other specified parts of digestive tract; Z79.899 Other long term (current) drug therapy
CPT/HCPCS: 88305

== ENCOUNTER → 2023-06-13 | Outpatient (CLI) | payer MEDICARE ==
[~2023-06-13] MED LIST changes: +ENAL-70 PO; -ENAL20TA16 PO
--- NOTE | 2023-06-13 11:17 | Diagnostic Imaging Report ---
INDICATION: Routine screening. COMPARISON: 05/31/2022 and 05/20/2021. TECHNIQUE: 2D and 3D bilateral screening mammography was performed with CAD. FINDINGS: Both breasts are heterogeneously dense, limiting the sensitivity of mammography. Benign calcifications are again noted bilaterally. No spiculated mass or malignant-appearing microcalcifications are seen. Axillae are unremarkable. IMPRESSION: No mammographic features suspicious for malignancy are identified. ACR BI-RADS Category 2: Benign findings. Result letter will be mailed to the patient. Note: At least 10% of breast cancer is not imaged by mammography. Dictated by: Dictated on workstation # [id number]
== END ==
LOC: RAD 09:40
PROVIDERS: ATTEND Family Medicine
DX: Z12.31 Encounter for screening mammogram for malignant neoplasm of breast (principal)
CPT/HCPCS: 77063; 77067